=== PATIENT | male | born 1955 | race Caucasian/White ===

== ENCOUNTER → 2017-11-05 15:09 | Outpatient (CLI) | payer MEDICARE, SELFPAY ==
[2017-11-05 16:46] LABS: AST(SGOT) 27 U/L (15-37); Alanine Aminotransfer ALT/SGPT 32 U/L (16-61); Anion Gap 8 (5-15); BUN 20 mg/dL (7-18); BUN/Creat Ratio 18.2 RATIO (10-20); Calcium,Total 8.2 mg/dL (8.5-10.1); Chloride 109 mmol/L (98-107); EST Glomerular Filtration Rate 72 mL/min (>60); Est Glom Filt Rate - Afr Amer 87 mL/min (>60); Glucose 113 mg/dL (74-106); Potassium 3.6 mmol/L (3.5-5.1); Sodium Level 142 mmol/L (136-145)
[2017-11-05 16:54] LABS: Vitamin D,25 Hydroxy 68.8 ng/mL (29.95-100.01)
[2017-11-09 12:08] LABS: Testosterone, Free 4.87 ng/dL (5.00-21.00)
[2017-11-09 13:55] LABS: Testosterone, % Free 2.03 % (1.50-4.20); Testosterone, Total 240 ng/dL (264-916)
== END ==
PROVIDERS: Family Provider Family Medicine; PCP Family Medicine; Visit Provider Internal Medicine Endocrinology, Diabetes & Metabolism
DX: E55.9 Vitamin D deficiency, unspecified (principal); E29.1 Testicular hypofunction; I10 Essential (primary) hypertension; E78.2 Mixed hyperlipidemia; D35.01 Benign neoplasm of right adrenal gland
CPT/HCPCS: 36415; 80048; 82306; 84402; 84403; 84450; 84460

== ENCOUNTER → 2018-11-10 16:10 | Outpatient (CLI) | payer MEDICARE, SELFPAY ==
[2018-11-10 17:24] LABS: Anion Gap 8 (5-15); BUN 15 mg/dL (7-18); BUN/Creat Ratio 12.6 RATIO (10-20); Calcium,Total 8.4 mg/dL (8.5-10.1); Chloride 107 mmol/L (98-107); Creatinine, Serum 1.19 mg/dL (0.70-1.30); EST Glomerular Filtration Rate 66 mL/min (>60); Est Glom Filt Rate - Afr Amer 79 mL/min (>60); Glucose 106 mg/dL (74-106); Potassium 3.9 mmol/L (3.5-5.1); Sodium Level 142 mmol/L (136-145); Thyroid Stim Hormone (TSH) 1.68 uIU/mL (0.358-3.74)
[2018-11-11 11:55] LABS: Vitamin D,25 Hydroxy 61.2 ng/mL (29.95-100.01)
== END ==
PROVIDERS: Family Provider Family Medicine; PCP Family Medicine; Referring Provider Internal Medicine Endocrinology, Diabetes & Metabolism; Visit Provider Internal Medicine Endocrinology, Diabetes & Metabolism
DX: E29.1 Testicular hypofunction (principal); E04.9 Nontoxic goiter, unspecified; E55.9 Vitamin D deficiency, unspecified
CPT/HCPCS: 36415; 80048; 82306; 84403; 84443

== ENCOUNTER → 2019-03-01 12:22 | Outpatient (CLI) | payer MEDICARE, SELFPAY ==
--- NOTE | 2019-03-01 12:23 | NM_ITS ---
CLINICAL: 63-year-old male with reported history of postprandial abdominal pain and nausea. RADIONUCLIDE HEPATOBILIARY SCINTIGRAPHY COMPARISON: None available FINDINGS: Following the intravenous administration of 5.5 mCi of 99m Tc Mebrofenin, hepatobiliary images reveal: 1. Relatively prompt and homogeneous radiopharmaceutical concentration is noted by a normal sized liver. No parenchymal defects are identified. 2. Gallbladder activity is identified at 10 minutes post radiopharmaceutical administration. 3. Small intestinal tract is observed at 30 minutes following tracer injection. 4. Washout of the radiopharmaceutical by the hepatic parenchyma appears qualitatively normal. Cholecystokinin (0.02 ug/kg) was administered intravenously over a 30-minute period. The post CCK gallbladder ejection fraction calculated at 21 minutes following Cholecystokinin administration was noted to be 97.0 % (normal greater than 35%). During 30 minutes of post CCK imaging, there is no scintigraphic evidence of reflux of the radiotracer into the common hepatic duct or refilling of the gallbladder. NM/Hepatobilliary Imaging IMPRESSION: 1. NORMAL 99m Tc Mebrofenin hepatobiliary imaging examination with Cholecystokinin. A. A gallbladder ejection fraction calculated to be greater than 35% following the administration of Cholecystokinin makes the probability of functional hepatobiliary disease (gallbladder and/or sphincter of Oddi dyskinesia) and/or organic hepatobiliary disease (chronic acalculous cholecystitis and/or cystic duct syndrome) to be low. (Micky Sapp et al, Journal of Nuclear Medicine 32:1695, 1990). Electronically Signed: Allen Del Valle DO at 23:32 EDT Tel , Service support ,
== END ==
PROVIDERS: Family Provider Family Medicine; PCP Family Medicine; Referring Provider Family Medicine; Visit Provider Family Medicine
DX: R10.11 Right upper quadrant pain (principal)
CPT/HCPCS: 78226; A9537; J2805

== ENCOUNTER → 2019-04-07 10:15 | Outpatient (CLI) | payer MEDICARE, SELFPAY ==
[2019-03-14 14:03] VITALS: BMI 46.0
[2019-04-07 12:19] LABS: Anion Gap 7 (5-15); BUN 20 mg/dL (7-18); BUN/Creat Ratio 16.5 RATIO (10-20); Calcium,Total 9.1 mg/dL (8.5-10.1); Chloride 104 mmol/L (98-107); Creatinine, Serum 1.21 mg/dL (0.70-1.30); EST Glomerular Filtration Rate 64 mL/min (>60); Est Glom Filt Rate - Afr Amer 78 mL/min (>60); Glucose 99 mg/dL (74-106); Potassium 3.5 mmol/L (3.5-5.1); Sodium Level 139 mmol/L (136-145)
== END ==
PROVIDERS: Family Provider Family Medicine; PCP Family Medicine
DX: I10 Essential (primary) hypertension (principal)
CPT/HCPCS: 36415; 80048

== ENCOUNTER 2019-05-02 10:28 | Inpatient (IN) | payer MEDICARE, SELFPAY ==
--- NOTE | 2019-03-14 03:21 | HP_ITS ---
Intake Vital Signs 03/14/19 Height 5 ft 9 in 03/14/19 Weight: 312 lb 03/14/19 Body Mass Index (BMI) 46.0 03/14/19 Blood Pressure 166/85 H 03/14/19 Blood Pressure Location Rt brachial 03/14/19 Blood Pressure Position Sitting 03/14/19 Respiratory Rate 18 Intake Visit Reasons: C-Scope Screening Pos Cologuard Test [employer] Whe[employer] Axle Inspector Required: No Is patient in pain?: Yes (abdominal pain) Allergies No Known Allergies Allergy (Unverified 03/14/19 14:05) Medications acetaminophen 500 mg tablet 500 mg PO Q4H 03/14/19 [History Confirmed 03/14/19] amlodipine 10 mg tablet 10 mg PO DAILY 03/14/19 [History Confirmed 03/14/19] antiarthritic combination no.2 900 mg tablet mg PO tab 03/14/19 [History Confirmed 03/14/19] buspirone 10 mg tablet 10 mg PO BID 03/14/19 [History Confirmed 03/14/19] cholecalciferol (vitamin D3) 2,000 unit capsule 2,000 unit PO DAILY 03/14/19 [History Confirmed 03/14/19] clonazepam 2 mg tablet 2 mg PO BID 03/14/19 [History Confirmed 03/14/19] coenzyme Q10 200 mg/gram oral powder mg PO g 03/14/19 [History] duloxetine 60 mg capsule,delayed release 60 mg PO BID cap 03/14/19 [History Confirmed 03/14/19] ergocalciferol (vitamin D2) 50,000 unit capsule 50,000 unit PO QWEEK 03/14/19 [History Confirmed 03/14/19] ferrous sulfate 325 mg (65 mg iron) tablet 325 mg PO DAILY 03/14/19 [History Confirmed 03/14/19] latanoprost 0.005 % eye drops 1 drp OPHTHALMIC QPM 03/14/19 [History Confirmed 03/14/19] lisinopril 20 mg tablet 20 mg PO DAILY 03/14/19 [History Confirmed 03/14/19] lovastatin 40 mg tablet 40 mg PO DAILY 03/14/19 [History Confirmed 03/14/19] metoprolol tartrate 50 mg tablet 50 mg PO BID 03/14/19 [History Confirmed 03/14/19] naproxen sodium 220 mg tablet 220 mg PO BID 03/14/19 [History Confirmed 03/14/19] omega-3 fatty acids 1,000 mg capsule 1,000 mg PO DAILY 03/14/19 [History Confirmed 03/14/19] omeprazole 40 mg capsule,delayed release 40 mg PO DAILY #60 cap 03/14/19 [Rx Confirmed 03/14/19] timolol 0.5 % eye drops 1 drp OPHTHALMIC BID 03/14/19 [History Confirmed 03/14/19] PFSH Medical History Anxiety (Acute) Depression (Acute) Eczema (Acute) Glaucoma (Acute) High cholesterol (Acute) Psoriatic arthritis (Acute) Sleep apnea (Acute) HTN (hypertension) (Chronic) Surgical History (Updated 03/14/19 @ 14:02 by Sylvie Benitez) S/P hemorrhoidectomy (Acute) S/P tonsillectomy (Acute) s/p cardiac ablation (Acute) Family History (Updated 03/14/19 @ 14:03 by Sylvie Benitez) Brother CVA (cerebral vascular accident) Diabetes Social History (Updated 03/14/19 @ 15:21 by Domingo Russo MD) Smoking Status: Never smoker alcohol intake: current HPI HPI HPI: AMBERLY PEÑA, is a 63 M who presents to the office today for HPI HPI Surgical H&P: Yes HPI: AMBERLY PEÑA, is a 63 M who presents to the office today for Rectal bleeding. Patient notes that he has had blood in his stool for the last 6 months. He reports that his stools were dark and black in color and now they have blood in them. He said that he has had blood in the past around his stools when he was complaining of hemorrhoids. He also had a positive Cologuard test after the bleeding started. He is also complaining of right upper quadrant pain. The patient also reports that he has been on naproxen for about 6 months. ROS General General: Yes fatigue; no weight change Cardio Cardiovascular: Yes murmur and high blood pressure; no pacemaker, heart disease, atrial fibrillation, heart attack, heart stent, palpitations, shortness of breat with exertion or chest pain Psych Psychiatric: Yes anxiety; no depression Resp Respiratory: Yes shortness of breath, Yes sleep apnea, No cough, No COPD, No asthma, No emphysema, No wheezing Gastro Gastrointestinal: Yes abdominal pain, No nausea or vomiting, No diarrhea, No constipation, Yes blood in stool, No acid reflux, Yes hemorrhoids, No ulcers, No gallbladder problem, Yes black,tarry stools Stan Hematologic: No blood thinners Exam Const General: cooperative Orientation: alert, oriented x3 Resp Effort & Inspection: normal respiratory effort Auscultation: clear to auscultation bilaterally Cardio Rate: regular rate Rhythm: regular rhythm Heart Sounds: murmur GI Inspection: non-distended Palpation: soft, nontender Assessment & Plan Problems 1. Gastrointestinal hemorrhage, unspecified gastrointestinal hemorrhage type K92.2 Plan The patient reports that he has having blood in his stools. He reports that it is red when he flushes. He says that he has had hemorrhoidal bleeding before and there was usually blood on the outside of the stools but now it is within the stool. He also notes some black tarry stools as well. This is been going on for 6 months. I recommended that he start PPI and Carafate in case his peptic ulcer disease and we perform an EGD and colonoscopy. I explained endoscopy in detail to the patient. I explained the risks including but not limited to stroke or heart attack with anesthesia, perforation of the GI tract, bleeding, infection. I explained that any of these could necessitate further emergency surgery. The patient understands and all questions were answered sufficiently. The patient wishes to proceed with procedure. Domingo Russo MD Pager: [facility] [address] [place] [address], [address] [place] [address] Office: Orders Orders: Colonoscopy Today K92.2 EGD Today K92.2 Medications New: omeprazole 40 mg PO DAILY 60 caps 1RF ergocalciferol (vitamin D2) 50,000 units PO QWEEK ferrous sulfate (Feosol) 325 mg PO DAILY cholecalciferol (vitamin D3) 2,000 units PO DAILY omega-3 fatty acids 1,000 mg PO DAILY antiarthritic combination no.2 (glucosamine-chondroitin) mg PO coenzyme Q10 (H2Q CoQ10) mg PO acetaminophen (Tylenol Extra Strength) 500 mg PO Q4H naproxen sodium (Flanax (naproxen)) 220 mg PO BID Coding Level of Care Code Off vis,new,level 3 Diagnoses Gastrointestinal hemorrhage, unspecified gastrointestinal hemorrhage type K92.2 ??GI bleed type/associated pathology: unspecified gastrointestinal hemorrhage type 03/14/19 1521 <Electronically signed by Domingo lambert MD> Date _ Domingo Russo MD
[2019-03-14 14:03] VITALS: BMI 46.0
[2019-04-18 14:42] VITALS: BMI 46.0
[2019-05-02] VITALS (9 sets, daily range): BP systolic 102–145; BP diastolic 66–79; PULSE 57–68; RESP 15–18; TEMP 36.4–37.1; O2SAT 95–100; BMI 44.5; BMI 44.6
--- NOTE | 2019-05-02 | IMM_PTH ---
PATIENT: AMBERLY PEÑA LOC: MS3 U#:[id number] AGE/SX: 63/M ROOM: MS317 RE05/04/[address]: Dr. Domingo Russo MD : 1955 BED: 1 DIS: 05/16/2019 SPEC #: [id number] RECD: 05/08/19 12:56 STATUS: ZULEYKA REQ #: [id number] KALANI: 05/02/19 00:[address]: Domingo Russo DEPT: IMMUNOHISTOCHEMISTRY RECD BY: Nenita Calderon ENTERED: 05/08/19 12:57 SP TYPE: IMMUNO OTHR DR: Dr. John Villalta MD Tissues: Right colon Procedures: MSH2 (add) MLH-1 (add) MSH6 (add) Anti-PMS2 (add) RUBI-2 (add) HER2 SARBJIT (add) P53 (add) KI-67 (initial) PHYSICIAN & INSTITUTION [place] [id number] SPECIMEN INFORMATION: Tissue Source: Right colon Clinical Info: RUQ pain, rectal bleeding Specimen Number: [id number] #5 CPT code: 89972, 16838 x7 METHODOLOGY: Deparaffinized sections of prefer/formalin-fixed tissue or PAP/DQ stained slides are incubated with monoclonal/polyclonal antibodies/oligonucleotide probes. Localization is made via biotin free immunoperoxidase method. Appropriate controls are performed and reacted as expected. Results on target cell population are indicated in the following table: RESULTS: ANTIBODY / CLONE RESULT Block 5 Ki-67 (30-9) positive 25% P53 (DO-7) positive, rare cells RUBI-2 (SP21) positive MLH-1 (M1) positive MSH2 (25D12) positive MSH6 (44) positive PMS2 (VJV8666) positive Her-2neu (CB11) negative These tests were developed and their performance characteristics determined by [facility]. They may not have been cleared or approved by the U.S. Food and Drug Administration. The FDA has determined that such clearance or approval is not necessary. The above immunohistochemical/dualISH markers are ordered and reviewed by the Pathologist. INTERPRETATION: Right colon, segmental colectomy: Invasive adenocarcinoma. Result of Microsatellite Instability Study: Negative (no loss of mismatch protein; no microsatellite instability detected). AM:jose rafael 05/09/19
--- NOTE | 2019-05-02 | COLBX_PTH ---
PATIENT: AMBERLY PEÑA LOC: MS3 U#:[id number] AGE/SX: 63/M ROOM: MS317 RE05/04/[address]: Dr. Domingo Russo MD : 1955 BED: 1 DIS: 05/16/2019 SPEC #: [id number] RECD: 05/02/19 10:27 STATUS: ZULEYKA JACQUELYN #: [id number] KALANI: 05/02/19 00:[address]: Domingo Russo DEPT: SURGICAL PATHOLOGY RECD BY: Clement Harry ENTERED: 05/02/19 10:29 SP TYPE: COLON BX OTHR DR: Dr. John Villalta MD Tissues: A - Transverse colon B - Transverse colon C - Sigmoid colon biopsy Procedures: Frozen Section ([facility]) Surgery Specimen Level IV HEADER OPERATION: Colonoscopy, EGD ([facility]) PRE-OP DIAGNOSIS: RUQ pain, rectal bleeding, blood in stool TISSUE SUBMITTED: A. Transverse colon, frozen section, B. Biopsy transverse colon, C Sigmoid colon polyp FROZEN SECTION DIAGNOSIS A. Transverse colon mass, biopsy: Dysplastic colonic epithelium suspicious for carcinoma AM:cc 05/02/19 MICROSCOPIC DIAGNOSIS A. Transverse colon mass, biopsy: Dysplastic colonic mucosa suspicious for carcinoma. B. Transverse colon, biopsy: Fragments of invasive well-differentiated adenocarcinoma with ulceration. C. Sigmoid colon polyp, biopsy: Tubular adenoma. AM:sp 05/03/19 COMMENT B. This case was discussed with Dr. Russo on May 03, 2019. Case has been reviewed in consultation with Dr. Devlin who concurs with the above diagnosis. IDC:SJ MICROSCOPIC DESCRIPTION Slides are reviewed. GROSS DESCRIPTION A. Received fresh for frozen section consultation labeled with the patient's name is a specimen designated transverse colon biopsy. The specimen consists of multiple irregular fragments of light mcgraw soft tissue measuring in aggregate 0.5 x 0.2 x 0.1 cm. The specimen is submitted in its entirety in one block for frozen section consultation. B. Received is one container labeled with the patient name and designated transverse colon biopsy. The specimen consists of multiple irregular fragments of light mcgraw soft tissue that in aggregate measure 1 x 0.7 x 0.1 cm. The specimen is totally submitted in one cassette. C. Received is one container labeled with the patient name and designated sigmoid polyp. The specimen consists of one irregular fragment of light mcgraw soft tissue that measures 1.7 x 0.5 x 0.2 cm. The specimen is totally submitted in one cassette. AM:cj 05/02/19 TC: 0 CPT: 56615 x3, 82822
[2019-05-02] MEDS: Lactated Ringers 1,000 ML 100 ML IV (08:21)
--- NOTE | 2019-05-02 08:54 | PCM.HP.STD ---
Problem List (1) Rectal bleeding Status: Acute (2) RUQ abdominal pain Status: Acute History of Present Illness Date of Admission: 05/02/19 The patient is a 63 year old M was having right upper quadrant pain after taking naproxen. He was also having blood in his stool. He says this been going on for 6 months. Past Medical History Medical History: Medical History (Last Reviewed 04/18/19 @ 13:46 by Sylvie Benitez) Anxiety F41.9 Depression F32.9 Eczema L30.9 Glaucoma H40.9 High cholesterol E78.00 Psoriatic arthritis L40.50 Sleep apnea G47.30 HTN (hypertension) I10 Allergies No Known Allergies Allergy (Verified 05/02/19 08:09) Home Medications: Ambulatory Orders Medication Instructions Recorded acetaminophen 500 mg tablet 500 mg PO Q4H PRN 03/14/19 amlodipine 10 mg tablet 10 mg PO DAILY 03/14/19 buspirone 10 mg tablet 10 mg PO TID 03/14/19 cholecalciferol (vitamin D3) 50 2,000 unit PO DAILY 03/14/19 mcg (2,000 unit) capsule clonazepam 2 mg tablet 2 mg PO QHS 03/14/19 duloxetine 60 mg capsule,delayed 60 mg PO BID cap 03/14/19 release ergocalciferol (vitamin D2) 50,000 50,000 unit PO QWEEK 03/14/19 unit capsule ferrous sulfate 325 mg (65 mg 325 mg PO DAILY 03/14/19 iron) tablet latanoprost 0.005 % eye drops 1 drp OPHTHALMIC QPM 03/14/19 lisinopril 20 mg tablet 20 mg PO DAILY 03/14/19 lovastatin 40 mg tablet 40 mg PO DAILY 03/14/19 metoprolol tartrate 50 mg tablet 50 mg PO BID 03/14/19 omega-3 fatty acids 1,000 mg 1,000 mg PO DAILY 03/14/19 capsule omeprazole 40 mg capsule,delayed 40 mg PO DAILY #60 cap 03/14/19 release timolol 0.5 % eye drops 1 drp OPHTHALMIC DAILY 03/14/19 Glucos Sul 2Kcl/MSM/Chond/C/Mn 1 ea PO BID 03/29/19 [Glucosamine Chondroitin Cap] Sucralfate [Carafate] 1 gm PO 4X/DAY 03/29/19 Ubidecarenone [Co Q-10] 200 mg PO DAILY 03/29/19 aspirin 81 mg tablet,delayed 81 mg PO DAILY 04/18/19 release ergocalciferol (vitamin D2) 50,000 50,000 unit PO QWEEK 04/18/19 unit capsule hydrochlorothiazide 25 mg tablet 25 mg PO DAILY 04/18/19 metoprolol succinate ER 50 mg 50 mg PO BID 04/18/19 tablet,extended release 24 hr Surgical History: Surgical History (Last Reviewed 04/18/19 @ 13:46 by Sylvie Benitez) S/P hemorrhoidectomy Z98.890, Z87.19 S/P tonsillectomy Z90.89 s/p cardiac ablation Smoking Status: Never smoker Tobacco Use: Non-smoker Review of Systems Constitutional: Denies: Anorexia, Chills HEENT: Denies: Difficulty Hearing Respiratory: Denies: Cough Gastrointestinal: Reports: Abdominal Pain. Denies: Hematochezia, Nausea, Vomiting Musculoskeletal: Denies: Joint Tenderness Skin: Denies: Jaundice Neurological: Denies: Balance problems VTE Information - Inpt Only VTE Present on Admission: No Patient Problems: Active and Suspected Problems (Last Reviewed 04/18/19 @ 13:46 by Sylvie Benitez) Rectal bleeding (Acute) RUQ abdominal pain (Acute) - Physical Exam Vitals/I&O's: Vital Signs Temp Pulse Resp BP Pulse Ox 97.7 F L 66 15 131/66 H 95 05/02/19 08:11 05/02/19 08:11 05/02/19 08:11 05/02/19 08:11 05/02/19 08:11 Oxygen Delivery Method Room Air Weight: 301 lb 9.6 oz Body Mass Index (BMI) 44.5 General: Alert, Oriented x3 Lungs: Normal air movement Cardiovascular: Regular rate, Regular Rhythm Abdomen: Soft, Non Tender, Non-Distended Current Medications Lactated Ringer's () 1,000 mls @ 100 mls/hr IV .Q10H JULIO Last Admin: 05/02/19 08:21 Dose: 100 mls/hr Documented by: Assessment/Plan All Active Problems (Last Reviewed 04/18/19 @ 13:46 by Sylvie Benitez) Rectal bleeding (Acute) RUQ abdominal pain (Acute) 63-year-old male with abdominal pain and blood in his stool The patient reports that he has having blood in his stools. He reports that it is red when he flushes. He says that he has had hemorrhoidal bleeding before and there was usually blood on the outside of the stools but now it is within the stool. He also notes some black tarry stools as well. This is been going on for 6 months. I recommended that he start PPI and Carafate in case his peptic ulcer disease and we perform an EGD and colonoscopy. I explained endoscopy in detail to the patient. I explained the risks including but not limited to stroke or heart attack with anesthesia, perforation of the GI tract, bleeding, infection. I explained that any of these could necessitate further emergency surgery. The patient understands and all questions were answered sufficiently. The patient wishes to proceed with procedure. Domingo Russo MD Pager: [facility] [address] [place] [address], [address] [place] [address] Office:
--- NOTE | 2019-05-02 09:00 | COL_PTH ---
PATIENT: AMBERLY PEÑA LOC: MS3 U#:[id number] AGE/SX: 63/M ROOM: MS317 RE05/04/[address]: Dr. Domingo Russo MD : 1955 BED: 1 DIS: 05/16/2019 SPEC #: [id number] RECD: 05/04/19 08:07 STATUS: ZULEYKA JACQUELYN #: [id number] KALANI: 05/02/19 09:[address]: Domingo Russo DEPT: SURGICAL PATHOLOGY RECD BY: Elias Talbot ENTERED: 05/04/19 10:49 SP TYPE: COLON OTHR DR: Dr. John Villalta MD Tissues: Colon, NOS Procedures: Surgery Specimen Level HEADER OPERATION: Laparoscopic converted to open hemicolectomy PRE-OP DIAGNOSIS: RUQ pain, rectal bleeding TISSUE SUBMITTED: Right colon MICROSCOPIC DIAGNOSIS Right colon, segmental colectomy: Invasive adenocarcinoma. See cancer checklist below. AM:jose rafael 05/08/19 COMMENT COLON CANCER SUMMARY: Procedure: segmental colectomy Tumor site: right colon Tumor size: 8 x 5 x 1 cm Macroscopic tumor perforation: not identified Histologic type: adenocarcinoma Histologic grade: G2 (moderately differentiated) Tumor extension: Tumor invades muscularis propria and extends into subserosal fat. Margins: All margins are uninvolved by invasive carcinoma, high-grade dysplasia/CIS and adenoma. Margins examined: proximal, distal and serosal Treatment effect: Unknown Lymphvascular invasion: not identified Perineural invasion: not identified Tumor deposits: not identified Regional lymph nodes: 14 of 14 lymph nodes negative for metastatic carcinoma. Ancillary studies: Microsatellite instability: Negative by Immunohistochemistry Additional pathologic findings: None identified PATHOLOGIC STAGE: T3 N0 Mx The above summary is in compliance with [employer] (CAP) Cancer Protocols Checklist and [place] [employer] Committee on Cancer (AJCC), Staging Manual, 8th Ed. Immunohistochemistry ([id number]) supports the above diagnosis and reveals no loss of MSI markers. Case is discussed with Dr. Russo 05/09/[address] Merchant Case has been reviewed in consultation with Dr. eDvlin who concurs with the above diagnosis. IDC:SJ MICROSCOPIC DESCRIPTION Slides are reviewed. GROSS DESCRIPTION Received in fixative is one container labeled with the patient's name and designated right colon. The specimen consists of a right hemicolectomy specimen consisting of cecum with ascending colon and transverse colon with attached omentum and pericolonic adipose tissue and segment of small intestine. The appendix is not identified in the submitted specimen. The cecum with ascending colon and transverse colon measures 33 cm in length. The segment of small intestine measures 12.5 cm in length. Both resection margins are stapled. The colon appears to be dilated and measures 6 to 7 cm in diameter. The lumen is filled with fecal material. 8.5 cm away from the distal resection margin there is a circumferential, almost obstructing ulcerated tumor mass measuring 8 x 5 x 1 cm. The serosa overlying the mass is inked black. No other additional mass lesions are identified. A metallic clip is noted adjacent to the mass. The serosa overlying the mass appears to be puckered. The mass appears to involve full thickness of the bowel wall. The attached omentum measures 23 x 10 x 3 cm. The pericolonic adipose tissue is fixed in lymph node revealing solution. More dictation will follow after overnight fixation. / SJ:jose rafael 05/04/19 Sections of the omentum do not reveal any mass lesion. Sections of the pericolonic adipose tissue reveal multiple lymph nodes. The largest lymph node measures 2 cm in greatest dimension. Service Consultant sections are submitted as follows: 1 - resection margins, 2-6 - tumor, 7 - ileocecal valve, small and large intestine, 8 - omentum, 9 - one bisected lymph node, 10 - one bisected lymph node, 11 - one bisected lymph node, 12 - one bisected lymph node, 13 - indurated area in the peripheral adipose tissue, 1417??each cassette containing one bisected lymph node, 18 - multiple lymph nodes, 19 - one serially sectioned lymph node, largest lymph node, 20 - one lymph node. / SJ:jose rafael 05/05/19 TC:0 CPT: 02925
--- NOTE | 2019-05-02 09:42 | OP.EGD_ITS ---
Patient Name: Garfield Lainez Procedure Date: 05/02/2019 9:01 AM Date of : 1955 Age: 63 Procedure: Upper GI endoscopy Indications: Abdominal pain in the right upper quadrant Providers: Domingo Russo MD Referring MD: John Villalta Medicines: Monitored Anesthesia Care Patient Profile: This is a 63 year old male. Refer to note in patient chart for documentation of history and physical. Complications: No immediate complications. Procedure: Pre-Anesthesia Assessment: - Prior to the procedure, a History and Physical was performed, and patient medications and allergies were reviewed. The patient's tolerance of previous anesthesia was also reviewed. The risks and benefits of the procedure and the sedation options and risks were discussed with the patient. All questions were answered, and informed consent was obtained. Prior Anticoagulants: The patient has taken no previous anticoagulant or antiplatelet agents. After reviewing the risks and benefits, the patient was deemed in satisfactory condition to undergo the procedure. After obtaining informed consent, the endoscope was passed under direct vision. Throughout the procedure, the patient's blood pressure, pulse, and oxygen saturations were monitored continuously. The gastroscope was introduced through the mouth, and advanced to the second part of duodenum. The upper GI endoscopy was accomplished without difficulty. The patient tolerated the procedure well. Scope In: 9:08:22 AM Scope Out: 9:10:48 AM Total Procedure Duration Time 0 hours 2 minutes 26 seconds Findings: The esophagus was normal. The stomach was normal. The examined duodenum was normal. Impression: - Normal esophagus. - Normal stomach. - Normal examined duodenum. - No specimens collected. Recommendation: - Discharge patient to home. - Resume previous diet. - Continue present medications. Procedure Code(s): --- Professional --- 28069, Esophagogastroduodenoscopy, flexible, transoral; diagnostic, including collection of specimen(s) by brushing or washing, when performed (separate procedure) Diagnosis Code(s): --- Professional --- R10.11, Right upper quadrant pain CPT copyright 2017 [employer]. All rights reserved. The codes documented in this report are preliminary and upon er medical technician review may be revised to meet current compliance requirements. Domingo Russo MD 05/02/2019 9:41:59 AM This report has been signed electronically. Number of Addenda: 0 Note Initiated On: 05/02/2019 9:01 AM
--- NOTE | 2019-05-02 09:45 | OP.COLON_ITS ---
Patient Name: Garfield Lainez Procedure Date: 05/02/2019 9:12 AM Date of : 1955 Age: 63 Procedure: Colonoscopy Indications: Rectal bleeding Providers: Domingo Russo MD Referring MD: John Villalta Medicines: Monitored Anesthesia Care Patient Profile: This is a 63 year old male. Refer to note in patient chart for documentation of history and physical. Last Colonoscopy: none. The patient's first colonoscopy is today. Complications: No immediate complications. Estimated blood loss: Minimal. Procedure: Pre-Anesthesia Assessment: - Prior to the procedure, a History and Physical was performed, and patient medications and allergies were reviewed. The patient's tolerance of previous anesthesia was also reviewed. The risks and benefits of the procedure and the sedation options and risks were discussed with the patient. All questions were answered, and informed consent was obtained. Prior Anticoagulants: The patient has taken no previous anticoagulant or antiplatelet agents. After reviewing the risks and benefits, the patient was deemed in satisfactory condition to undergo the procedure. After I obtained informed consent, the scope was passed under direct vision. Throughout the procedure, the patient's blood pressure, pulse, and oxygen saturations were monitored continuously. The Colonoscope was introduced through the anus with the intention of advancing to the cecum. The scope was advanced to the transverse colon before the procedure was aborted. Medications were not given. The colonoscopy was performed without difficulty. The patient tolerated the procedure well. The quality of the bowel preparation was good. Scope In: 9:13:34 AM Scope Out: 9:39:37 AM Total Procedure Duration Time 0 hours 26 minutes 3 seconds Findings: A partially obstructing large mass was found in the transverse colon. The mass was circumferential. Oozing was present. This was biopsied with a cold forceps for histology. A polyp was found in the sigmoid colon. The polyp was pedunculated. The polyp was removed with a hot snare. Resection and retrieval were complete. The exam was otherwise without abnormality. Impression: - Likely malignant partially obstructing tumor in the transverse colon. Biopsied. - One polyp in the sigmoid colon, removed with a hot snare. Resected and retrieved. - The examination was otherwise normal. Recommendation: - Discharge patient to home. - Resume previous diet. - Continue present medications. - Await pathology results. - Repeat colonoscopy for surveillance based on pathology results. Procedure Code(s): --- Professional --- 04838, 52, Colonoscopy, flexible; with removal of tumor(s), polyp(s), or other lesion(s) by snare technique 45680, 59,52, Colonoscopy, flexible; with biopsy, single or multiple Diagnosis Code(s): --- Professional --- D49.0, Neoplasm of unspecified behavior of digestive system K56.690, Other partial intestinal obstruction D12.5, Benign neoplasm of sigmoid colon K62.5, Hemorrhage of anus and rectum CPT copyright 2017 [employer]. All rights reserved. The codes documented in this report are preliminary and upon yard switch operator review may be revised to meet current compliance requirements. Domingo Russo MD 05/02/2019 9:44:56 AM This report has been signed electronically. Number of Addenda: 0 Note Initiated On: 05/02/2019 9:12 AM
--- NOTE | 2019-05-02 10:26 | CT_ITS ---
STUDY: CT ABDOMEN AND PELVIS WITH CONTRAST REASON FOR EXAM: Male, 63 years old. Mass in the colon. RADIATION DOSAGE (If Supplied By Facility): CTDIvol = ( 17.07 ) mGy, DLP = ( 1324.88 ) mGycm TECHNIQUE: Transaxial images were obtained from the dome of the diaphragm to the symphysis pubis with oral contrast. Oral and amp; IV Gastrografin and amp; 100mL Isovue-370 was administered. Sagittal and coronal images were reconstructed. Individualized dose optimization techniques were used for this CT. COMPARISON: Comparison is made with prior study dated June 25, 2011. FINDINGS: Minimal degree of increased markings in the posterior medial segment of the right lower lobe. This may represent scarring. The visualized portions of the heart are within normal limits. There is decreased attenuation of the liver consistent with steatosis. Normal gallbladder and extrahepatic biliary system. Normal spleen. Normal pancreas. There is a 3.9 cm x 2.8 cm cyst in the lateral aspect of the right kidney. There is also evidence of a 2.1 cm cyst in the lower pole of the left kidney. There is a 5.3 cm x 5.2 cm cyst in the upper pole of the left kidney. 2.9 cm cyst in the lower pole of the left kidney as well. There is a small hiatal hernia. Normal small intestine. There is evidence of a soft tissue mass with thickening of the ascending colon adjacent to the hepatic flexure. A tissue clip marker is seen at that site. The appendix is visualized and appears normal. There is scattered atherosclerotic calcification of the abdominal aorta, without a demonstrated aneurysm. Normal inferior vena cava. There is borderline retroperitoneal lymphadenopathy with enlarged nodes no greater than 10mm in the short axis diameter. Normal urinary bladder. There is a small umbilical hernia containing fat. There are degenerative changes of the visualized lumbar spine. CT/Abdomen/Pelvis WITH Contrast IMPRESSION: Soft tissue mass with the wall thickening along the descending colon adjacent to the hepatic flexure. Bilateral renal cysts. Electronically Signed: Isaac Finnegan, at 14:37 EST , Service support ,
--- NOTE | 2019-05-02 10:49 | SUR.PHASEII ---
1030 Report called to ANDREEA Hedrick on MS2. PT to have lab work, then transferred via wheelchair by volunteer.
[2019-05-02 11:15] LABS: Absolute Lymphocyte Count 1.35 X10^3/uL (0.83-4.51); Absolute Neutrophil Count 3.9 X10^3/uL (2.0-7.7); Basophil# 0.04 X10^3/uL; Basophil% 0.7 % (0-1); Eosinophil# 0.24 X10^3/uL; Hemoglobin 10.3 g/dL (13.0-16.5); Lymphocyte # 1.35 X10^3/ul (4.0); Lymphocyte % 22.5 % (19-41); Mean Corp Hgb Conc 30.3 g/dL (32-36); Mean Corpuscular Hgb 25.1 pg (27.0-32.0); Mean Corpuscular Volume 82.9 fL (80-94); Mean Platelet Vol. 9.9 fl (6.2-12.0); Monocyte# 0.46 X10^3/uL; Monocyte% 7.7 % (0-10); NRBC Flagged by Analyzer 0 % (0-5); Neutrophil % 64.9 % (47-70); Platelet Count 312 K/mm3 (150-450); RBC Distribution Width CV 15.8 % (11.6-14.6); RBC Distribution Width SD 47.7 fl (35.1-43.9)
[2019-05-02 11:33] LABS: ALB/GLOB Ratio 1.1 RATIO (0.9-2.4); AST(SGOT) 29 U/L (15-37); Alanine Aminotransfer ALT/SGPT 29 U/L (16-61); Albumin, Serum 3.5 g/dL (3.2-5.0); Alkaline Phosphatase 72 U/L (45-117); Anion Gap 5 (5-15); BUN 11 mg/dL (7-18); BUN/Creat Ratio 7.5 RATIO (10-20); Calcium,Total 8.5 mg/dL (8.5-10.1); Chloride 107 mmol/L (98-107); Creatinine, Serum 1.47 mg/dL (0.70-1.30); EST Glomerular Filtration Rate 51 mL/min (>60); Est Glom Filt Rate - Afr Amer 62 mL/min (>60); Estimated Creatinine Clearance 51.44 ml/min; Globulin 3.3 g/dL (2.2-4.2); Glucose 101 mg/dL (74-106); Potassium 3.1 mmol/L (3.5-5.1); Protein, Total 6.8 g/dL (6.4-8.2); Sodium Level 142 mmol/L (136-145)
[2019-05-02] MEDS: 0.9% Normal Saline 1,000 ML 75 ML IV (11:36)
[2019-05-02] MEDS: Potassium Chloride 10mEq/100mL 10 MEQ/100 ML IV.SOLN. 100 MEQ IV BOLUS ×3 (14:11→17:01)
[2019-05-02] MEDS: busPIRone 5 MG Tablet 10 MG PO ×2 (14:12→21:11)
--- NOTE | 2019-05-02 14:26 | PCM.PN.BLA ---
Progress Note I performed a colonoscopy on the patient today. The patient had a hepatic flexure mass which was circumferential and large and friable. It was nearly obstructing with no possibility of passing through the mass. I was unable to complete the colonoscopy due to the circumferential mass. Biopsies were taken and sent for pathology. CT scan was performed which shows hepatic flexure mass at the area of the clip. I discussed right hemicolectomy with the patient and ordered a CEA and type and screen. I discussed right hemicolectomy in detail the patient. I discussed the risks including but not limited to bleeding, infection, surrounding organ injury such as the ureters, liver, duodenum. The patient understands the risks and is willing to proceed with surgery. I believe it is prudent to perform surgery before the pathology has returned as it is highly concerning for malignancy and a nearly obstructing mass. I discussed that likely represents cancer with the patient. Patient understands. Domingo Russo MD Pager: [facility] [address] [place] [address], [address] [place] [address] Office: [facility] Vital Signs/Narrative: Vital Signs Temp Pulse Resp BP Pulse Ox 05/02/19 11:29 97.5 F L 68 18 140/79 H 96
[2019-05-02] MEDS: metroNIDAZOLE 500 MG Tablet 1000 MG PO ×3 (15:46→22:26)
[2019-05-02] MEDS: Latanoprost 0.005% 1 Bottle 1 DRP OPHTHALMIC (21:10)
[2019-05-02] MEDS: Metoprolol Tartrate 50 MG Tablet PO (21:12)
[2019-05-02] MEDS: clonazePAM 1 MG Tablet 2 MG PO (21:12)
[2019-05-02] MEDS: DULoxetine Hcl 60 MG Capsule PO (21:12)
[2019-05-03] VITALS (16 sets, daily range): BP systolic 99–139; BP diastolic 57–73; PULSE 57–76; RESP 12–18; TEMP 36.3–37.3; O2SAT 85–99; BMI 44.6
[2019-05-03] MEDS: 0.9% Normal Saline 1,000 ML 75 ML IV (01:27)
--- NOTE | 2019-05-03 05:00 | EKG12_ITS ---
Test Reason : PRE-OP Blood Pressure : / mmHG Vent. Rate : 075 BPM Atrial Rate : 075 BPM P-R Int : 212 ms QRS Dur : 090 ms QT Int : 414 ms P-R-T Axes : 049 000 -14 degrees QTc Int : 462 ms SInus vs Ectopic Atrial Rhythm Inferior infarct , age undetermined , cannot be excluded Abnormal ECG Confirmed by YOKASTA HOYOS, KLAUS ([id number]), electronic news gathering editor ALTON ORTEZ ([id number]) on 05/10/2019 1:11:27 PM Referred By: John Villalta Confirmed By:KLAUS TEMPLETON MD
[2019-05-03] MEDS: busPIRone 5 MG Tablet 10 MG PO ×2 (06:08→21:23)
[2019-05-03 06:22] LABS: Absolute Lymphocyte Count 1.13 X10^3/uL (0.83-4.51); Absolute Neutrophil Count 4.5 X10^3/uL (2.0-7.7); Basophil# 0.06 X10^3/uL; Basophil% 0.9 % (0-1); Eosinophil# 0.28 X10^3/uL; Eosinophils% 4.3 % (0-5); Hematocrit 34.5 % (40-54); Hemoglobin 10.4 g/dL (13.0-16.5); Lymphocyte # 1.13 X10^3/ul (4.0); Lymphocyte % 17.3 % (19-41); Mean Corp Hgb Conc 30.1 g/dL (32-36); Mean Corpuscular Hgb 24.8 pg (27.0-32.0); Mean Corpuscular Volume 82.3 fL (80-94); Monocyte# 0.55 X10^3/uL; Monocyte% 8.4 % (0-10); NRBC Flagged by Analyzer 0 % (0-5); Neutrophil % 68.6 % (47-70); Platelet Count 302 K/mm3 (150-450); RBC Distribution Width CV 15.9 % (11.6-14.6); RBC Distribution Width SD 47.9 fl (35.1-43.9); Red Blood Count 4.19 M/mm3 (4.6-6.2); White Blood Count 6.6 K/mm3 (4.4-11.0)
[2019-05-03 06:28] LABS: Anion Gap 4 (5-15); BUN 8 mg/dL (7-18); BUN/Creat Ratio 6.1 RATIO (10-20); Calcium,Total 8.3 mg/dL (8.5-10.1); Chloride 110 mmol/L (98-107); Creatinine, Serum 1.31 mg/dL (0.70-1.30); EST Glomerular Filtration Rate 59 mL/min (>60); Est Glom Filt Rate - Afr Amer 71 mL/min (>60); Estimated Creatinine Clearance 57.72 ml/min; Glucose 117 mg/dL (74-106); Potassium 3.1 mmol/L (3.5-5.1); Sodium Level 143 mmol/L (136-145)
[2019-05-03] MEDS: Potassium Chloride 10mEq/100mL 10 MEQ/100 ML IV.SOLN. 100 MEQ IV BOLUS ×4 (08:04→11:11)
[2019-05-03 09:54] LABS: Carcinoembryonic Antigen 0.5 ng/mL (0.0-4.7)
--- NOTE | 2019-05-03 11:11 | CASEMGMT ---
RN SHA NOTE: To room to meet with pt. Introduced self and role of RN SHA. Reviewed LEMONS form with pt and and questions answered. Denies having further questions. LEMONS form signed by pt, copy made and placed on chart, and pt given original. Kenton ELLIOTTN RN CM
[2019-05-03] MEDS: Timolol 0.25% 5ML OPTH.BTL 1 DRP OPHTHALMIC (11:55)
--- NOTE | 2019-05-03 12:04 | NURSING ---
REPORT CALLED TO [facility]- PT TO SURGERY AND GOING DOWN WITH THEM
[2019-05-03] MEDS: Lactated Ringers 1,000 ML 100 ML IV (15:30)
[2019-05-03] MEDS: Bupivacaine 0.25% 30 ML Vial (17:00)
--- NOTE | 2019-05-03 17:29 | PCM.OPRPT ---
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 A Mathew catheter was placed. The abdomen was prepped and draped in usual sterile fashion. An incision was made superior to the umbilicus and deepened to the fascia. A 5 mm port was placed through the fascia under Visiport technique and into the abdomen and the abdomen was insufflated to 15 mmHg. A 5 mm port was placed in the superior midline and inferior midline as well. Next the right colon was medialized from the white line of Toldt laterally. He did have scar tissue in the area of his prior appendectomy. I was unable to divide the adhesions to the sigmoid colon and pelvis from the terminal ileum. Working superiorly the colon was medialized. Next the transverse colon was identified and retracted inferiorly and dissected free from the lesser sac. This dissection was carried around the hepatic flexure anteriorly. At this point I was unable to visualize the posterior transverse colon or the terminal ileum so the patient was converted open. The ports were removed and an incision was made from the superior epigastric area down to just below the umbilicus. This was deepened to the fascia and the fascia was incised with electrocautery. An extra-large wound protector was placed. The colon was further medialized from the lateral attachments. The terminal ileum was identified and followed inferiorly. There were dense adhesions in the pelvis. These were sharply incised with scissors. The terminal ileum was delivered superiorly once it was freed from its attachments. Next the superior ascending colon was medialized from the duodenum. The duodenum was from its filmy attachments. The gallbladder was also adherent to this area loosely. This was sharply divided and the gallbladder was freed. There is no spillage of bile. The lesser sac was entered in the mid transverse colon and dissection was carried laterally until the liver was identified and the hepatic flexure was taken down. The tumor was very large and was medialized and inferiorly retracted. The right colic vessels were identified. These were dissected free. Clamps were placed and these were suture ligated with 0 silk sutures. Next the right middle colic was identified. It was taken in the same fashion using 0 silk suture ligatures. Hemostasis was good. Using the Enseal the mesentery to the right colon was taken down until the terminal ileum was reached. A ROSELIA stapler was used to divide the terminal ileum and another stapler was used to divide the transverse colon at least 10 cm distal to the mass. There was good blood supply at the distal transverse colon from the left middle colic vessel. Next a small enterotomy was made in the tenia of the transverse colon as well as the distal terminal ileum. ROSELIA stapler was used to bring the terminal ileum to the transverse colon and a [id number] functional end-to-end fashion. The stapler was removed and the staple line was inspected and there was good hemostasis. The enteral to me was approximated with [place] and a TX 60 stapler was used to close the enterotomy. This was inspected and several 3-0 silk sutures were used to stop small amounts of bleeding. A 3-0 silk suture was used in the crotch of the staple line between the transverse colon and distal terminal ileum. The abdomen was irrigated and suctioned dry. There was no bilious drainage from the gallbladder or the small bowel where the adhesions were taken down. Everything appeared in order in the abdomen and the anastomosis and the omentum were laid back into the abdomen and the omentum was placed over the bowel. The wound retractor was removed. Next the entire staff remove the gown and gloves and changed to fresh gown and gloves. New towels were placed. The abdomen was irrigated and suctioned dry once more. The fascia was closed from superior and inferior borders using 2 looped #1 PDS sutures meeting in the middle. Next the subcutaneous tissue was irrigated and suctioned dry. There is good hemostasis of the subcutaneous material. The skin was anesthetized with local anesthetic and stapled closed. The patient was awoken and taken to PACU in stable condition with Mathew in place. Patient tolerated procedure well. - Admit VTE Documentation VTE Mechan Device Prophylaxis: SCD's
[2019-05-03] MEDS: 0.9% Normal Saline 1,000 ML 125 ML IV ×2 (18:22→23:21)
[2019-05-03] MEDS: Ketorolac 15 MG/ML Vial IV (19:56)
[2019-05-03] MEDS: Morphine 4 MG/ML Syringe IV ×2 (19:56→23:22)
[2019-05-03] MEDS: 0.9% Saline Lock 10 ML Syringe IV ×2 (19:56→23:21)
--- NOTE | 2019-05-03 20:25 | CPS ---
bled in 3 lpm O2 inline with pt's home CPAP unit
[2019-05-03] MEDS: Acetaminophen 500 MG Tablet PO (21:22)
[2019-05-03] MEDS: Latanoprost 0.005% 1 Bottle 1 DRP OPHTHALMIC (21:22)
[2019-05-03] MEDS: clonazePAM 1 MG Tablet 2 MG PO (21:22)
[2019-05-03] MEDS: Metoprolol Tartrate 50 MG Tablet PO (21:23)
[2019-05-03] MEDS: DULoxetine Hcl 60 MG Capsule PO (21:23)
[2019-05-03] MEDS: Pantoprazole Sodium 40 MG Tablet PO (21:24)
[2019-05-03] MEDS: Ondansetron 4 MG/2 ML Vial IV (23:21)
[2019-05-04] VITALS (8 sets, daily range): BP systolic 117–134; BP diastolic 58–70; PULSE 58–83; RESP 16–20; TEMP 36.4–37; O2SAT 95–98
[2019-05-04] MEDS: 0.9% Saline Lock 10 ML Syringe IV (03:11)
[2019-05-04] MEDS: Morphine 4 MG/ML Syringe IV ×4 (03:11→16:49)
[2019-05-04] MEDS: Acetaminophen 500 MG Tablet PO (04:58)
[2019-05-04] MEDS: busPIRone 5 MG Tablet 10 MG PO ×3 (04:59→21:19)
[2019-05-04] MEDS: Ketorolac 15 MG/ML Vial IV ×3 (04:59→21:19)
[2019-05-04 06:37] LABS: Absolute Lymphocyte Count 0.66 X10^3/uL (0.83-4.51); Absolute Neutrophil Count 10.8 X10^3/uL (2.0-7.7); Basophil# 0.02 X10^3/uL; Basophil% 0.2 % (0-1); Hemoglobin 10.2 g/dL (13.0-16.5); Lymphocyte # 0.66 X10^3/ul (4.0); Lymphocyte % 5.5 % (19-41); Mean Corpuscular Hgb 25.2 pg (27.0-32.0); Mean Platelet Vol. 9.7 fl (6.2-12.0); Monocyte# 0.53 X10^3/uL; Monocyte% 4.4 % (0-10); NRBC Flagged by Analyzer 0 % (0-5); Neutrophil # 10.81 X10^3/uL (2.7-7.7); Neutrophil % 89.5 % (47-70); Platelet Count 286 K/mm3 (150-450); RBC Distribution Width CV 15.7 % (11.6-14.6); Red Blood Count 4.05 M/mm3 (4.6-6.2); White Blood Count 12.1 K/mm3 (4.4-11.0)
[2019-05-04] MEDS: 0.9% Normal Saline 1,000 ML 125 ML IV ×3 (06:48→23:37)
[2019-05-04 07:01] LABS: Anion Gap 5 (5-15); BUN 11 mg/dL (7-18); Calcium,Total 7.7 mg/dL (8.5-10.1); Chloride 112 mmol/L (98-107); Creatinine, Serum 1.22 mg/dL (0.70-1.30); EST Glomerular Filtration Rate 64 mL/min (>60); Est Glom Filt Rate - Afr Amer 77 mL/min (>60); Estimated Creatinine Clearance 61.98 ml/min; Glucose 124 mg/dL (74-106); Magnesium 1.7 mg/dL (1.6-2.6); Potassium 3.7 mmol/L (3.5-5.1); Sodium Level 143 mmol/L (136-145)
[2019-05-04] MEDS: DULoxetine Hcl 60 MG Capsule PO ×2 (08:17→21:20)
[2019-05-04] MEDS: Metoprolol Tartrate 50 MG Tablet PO ×2 (08:18→21:18)
[2019-05-04] MEDS: hydroCHLOROthiazide 25 MG Tablet PO (08:18)
[2019-05-04] MEDS: Pantoprazole Sodium 40 MG Tablet PO (08:18)
[2019-05-04] MEDS: Lisinopril 20 MG Tablet PO (08:18)
[2019-05-04] MEDS: Timolol 0.25% 5ML OPTH.BTL 1 DRP OPHTHALMIC (08:20)
--- NOTE | 2019-05-04 11:11 | CASEMGMT ---
RN CM Assessment Presentation: Open R hemicolectomy w/primary anastomosis Intro role of CM and purpose of RN CM assessment to patient in room. Pt is awake, alert and able to participate in assessment. Demographics, PCP and Pharmacy verified. No contact was listed on demographics- pt states he is , and Melissa Lainez is his NOK. Information given to Registration to add to demographic sheet. PCP: Dr. John Villalta Specialists: Dr. Waldron, surgeon. Dr. Mark Medina, cardiology ([place]); Dr. Alix Stauffer, endocrinology- pt states he was evaluated for Cushings/anxiety in past, negative but sees this physician once a year. 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 Preferred Pharmacy: [facility] Insurance: Mavin [facility] Prescription Benefit: yes LNOK: Melissa Lainez, . pt states she does not use cell ivania Living Arrangements: Lives independently with in bilevel home. 12 steps to main level for bedrooms, bath and living area. Pt states he used a cane on occasion for walking distances, is independent with ADL. plans to be home a few days on dc. Transportation: pt drives and can drive DME: cane, cpap HHC: none Patient DC goals: Home DC PLAN: Home. Jacquelyn HUITRON RN ACM
[2019-05-04] MEDS: 0.9% Normal Saline 1,000 ML 999 ML IV (14:47)
[2019-05-04] MEDS: Latanoprost 0.005% 1 Bottle 1 DRP OPHTHALMIC (21:19)
[2019-05-04] MEDS: amLODIPine 10 MG Tablet PO (21:19)
[2019-05-04] MEDS: clonazePAM 1 MG Tablet 2 MG PO (21:20)
[2019-05-04] MEDS: Atorvastatin Calcium 10 MG Tablet PO (21:20)
[2019-05-05] VITALS (7 sets, daily range): BP systolic 128–152; BP diastolic 63–79; PULSE 63–78; RESP 18; TEMP 36.5–37.4; O2SAT 94–98
[2019-05-05] MEDS: Morphine 4 MG/ML Syringe IV ×4 (00:17→23:10)
[2019-05-05] MEDS: busPIRone 5 MG Tablet 10 MG PO ×3 (05:07→22:37)
[2019-05-05] MEDS: Ketorolac 15 MG/ML Vial IV ×3 (05:08→22:39)
[2019-05-05] MEDS: 0.9% Normal Saline 1,000 ML 125 ML IV ×3 (07:28→23:09)
--- NOTE | 2019-05-05 10:04 | PCM.PN.SRG ---
Patient Problems: Active and Suspected Problems (Last Reviewed 04/18/19 @ 13:46 by Sylvie Benitez) Rectal bleeding (Acute) RUQ abdominal pain (Acute) Subjective: Patient reports that he is still not passing any flatus. No nausea or vomiting. Abdominal pain is well controlled. - Physical Exam Vitals/I&O's: Vital Signs Temp Pulse Resp BP Pulse Ox 97.7 F L 63 18 143/63 H 96 05/05/19 02:26 05/05/19 02:26 05/05/19 02:26 05/05/19 02:26 05/05/19 07:22 Oxygen Flow Rate (L/min) 2 Oxygen Delivery Method Nasal Cannula Weight: 302 lb 8.011 oz Body Mass Index (BMI) 44.6 Intake and Output for Last 24 Hours 05/03/19 05/04/19 05/05/19 23:59 23:59 23:59 Intake Total 4932.50 / 4932.50 3987.50 / 3987.50 981.25 / 981.25 Output Total 900 / 900 730 / 730 Balance 4032.50 / 4032.50 3257.50 / 3257.50 981.25 / 981.25 General: Alert, Oriented x3 Abdomen: Soft, Non-Distended Current Medications Acetaminophen (Tylenol) 500 mg PO Q4H PRN PRN PRN Reason: Pain 1-10/10 or Fever Last Admin: 05/04/19 04:58 Dose: 500 mg Documented by: Amlodipine Besylate (Norvasc) 10 mg PO QHS [facility] Last Admin: 05/04/19 21:19 Dose: 10 mg Documented by: Atorvastatin Calcium (Lipitor) 10 mg PO HS [facility] Last Admin: 05/04/19 21:20 Dose: 10 mg Documented by: Buspirone HCl (Buspar) 10 mg PO TID [facility] Last Admin: 05/05/19 05:07 Dose: 10 mg Documented by: Cholecalciferol (Vitamin D) 2,000 unit PO DAILY [facility] Last Admin: 05/04/19 08:19 Dose: 2,000 unit Documented by: Clonazepam (Klonopin) 2 mg PO QHS [facility] Last Admin: 05/04/19 21:20 Dose: 2 mg Documented by: Duloxetine HCl (Cymbalta) 60 mg PO BID [facility] Last Admin: 05/04/19 21:20 Dose: 60 mg Documented by: Ergocalciferol (Vitamin D) 50,000 unit PO [place]@0800 [facility] Hydrochlorothiazide (Hctz) 25 mg PO DAILY [facility] Last Admin: 05/04/19 08:18 Dose: 25 mg Documented by: Sodium Chloride () 1,000 mls @ 125 mls/hr IV .Q8H [facility] Last Admin: 05/05/19 07:28 Dose: 125 mls/hr Documented by: Sodium Chloride () 250 mls @ 15 mls/hr IV .[id number] PRN PRN Reason: Saline Flush Ketorolac Tromethamine (Toradol) 15 mg IV Q8 [facility] Stop: 05/08/19 22:01 Last Admin: 05/05/19 05:08 Dose: 15 mg Documented by: Latanoprost (Xalatan Opthalmic) 1 drop OPHTHALMIC QPM [facility] Last Admin: 05/04/19 21:19 Dose: 1 drop Documented by: Lisinopril (Zestril) 20 mg PO DAILY [facility] Last Admin: 05/04/19 08:18 Dose: 20 mg Documented by: Metoprolol Tartrate (Lopressor (Beta Carl)) 50 mg PO BID [facility] Last Admin: 05/04/19 21:18 Dose: 50 mg Documented by: Morphine Sulfate () 4 - 6 mg IV Q2H PRN PRN PRN Reason: Pain Score 6-10/10 Last Admin: 05/05/19 05:11 Dose: 4 mg Documented by: Ondansetron HCl (Zofran) 4 mg IV Q6H PRN PRN PRN Reason: NAUSEA/VOMITING Last Admin: 05/03/19 23:21 Dose: 4 mg Documented by: Pantoprazole Sodium (Protonix) 40 mg PO DAILY [facility] Last Admin: 05/04/19 08:18 Dose: 40 mg Documented by: Sodium Chloride () 10 - 40 ml IV UD PRN PRN Reason: SALINE FLUSH Last Admin: 05/04/19 03:11 Dose: 10 ml Documented by: Timolol Maleate (Timoptic) 1 drop OPHTHALMIC DAILY [facility] Last Admin: 05/04/19 08:20 Dose: 1 drop Documented by: Medical Necessity - Tobacco Use Smoking Status: Never smoker Tobacco Use: Non-smoker Assessment/Plan All Active Problems (Last Reviewed 04/18/19 @ 13:46 by Sylvie Benitez) Rectal bleeding (Acute) RUQ abdominal pain (Acute) 63-year-old male status post right hemicolectomy for hepatic flexure cancer 1. Patient had borderline urine output and was given a bolus yesterday. He is not having any nausea or vomiting but does not have any bowel function yet. Continue IV fluids and SCDs. Add Lovenox. Advance diet once bowel function begins. Domingo Russo MD Pager: [facility] [address] [place] [address], [address] [place] [address] Office:
[2019-05-05] MEDS: DULoxetine Hcl 60 MG Capsule PO ×2 (10:13→22:39)
[2019-05-05] MEDS: Lisinopril 20 MG Tablet PO (10:14)
[2019-05-05] MEDS: hydroCHLOROthiazide 25 MG Tablet PO (10:19)
[2019-05-05] MEDS: Metoprolol Tartrate 50 MG Tablet PO ×2 (10:19→22:38)
[2019-05-05] MEDS: Pantoprazole Sodium 40 MG Tablet PO (10:20)
[2019-05-05] MEDS: Timolol 0.25% 5ML OPTH.BTL 1 DRP OPHTHALMIC (10:20)
[2019-05-05] MEDS: Enoxaparin 40 MG/0.4 ML Syringe SC (11:57)
[2019-05-05] MEDS: Latanoprost 0.005% 1 Bottle 1 DRP OPHTHALMIC (20:30)
[2019-05-05] MEDS: 0.9% Saline Lock 10 ML Syringe IV ×2 (20:42→23:14)
[2019-05-05] MEDS: clonazePAM 1 MG Tablet 2 MG PO (22:37)
[2019-05-05] MEDS: amLODIPine 10 MG Tablet PO (22:38)
[2019-05-05] MEDS: Atorvastatin Calcium 10 MG Tablet PO (22:39)
[2019-05-06] VITALS (8 sets, daily range): BP systolic 144–166; BP diastolic 79–94; PULSE 69–93; RESP 16–20; TEMP 36.6–37.1; O2SAT 93–95
[2019-05-06 06:56] LABS: Absolute Lymphocyte Count 0.94 X10^3/uL (0.83-4.51); Absolute Neutrophil Count 5.5 X10^3/uL (2.0-7.7); Basophil# 0.03 X10^3/uL; Basophil% 0.4 % (0-1); Eosinophil# 0.25 X10^3/uL; Eosinophils% 3.5 % (0-5); Hemoglobin 9.6 g/dL (13.0-16.5); Lymphocyte # 0.94 X10^3/ul (4.0); Lymphocyte % 13.1 % (19-41); Mean Corpuscular Hgb 24.9 pg (27.0-32.0); Mean Corpuscular Volume 83.1 fL (80-94); Mean Platelet Vol. 10.2 fl (6.2-12.0); Monocyte# 0.47 X10^3/uL; Monocyte% 6.5 % (0-10); NRBC Flagged by Analyzer 0 % (0-5); Neutrophil # 5.48 X10^3/uL (2.7-7.7); Neutrophil % 76.1 % (47-70); Platelet Count 250 K/mm3 (150-450); RBC Distribution Width CV 16.1 % (11.6-14.6); RBC Distribution Width SD 48.4 fl (35.1-43.9); Red Blood Count 3.85 M/mm3 (4.6-6.2); White Blood Count 7.2 K/mm3 (4.4-11.0)
[2019-05-06] MEDS: busPIRone 5 MG Tablet 10 MG PO ×3 (07:02→22:55)
[2019-05-06] MEDS: Ketorolac 15 MG/ML Vial IV ×3 (07:02→23:34)
[2019-05-06] MEDS: 0.9% Saline Lock 10 ML Syringe IV ×6 (07:03→23:35)
[2019-05-06] MEDS: 0.9% Normal Saline 1,000 ML 125 ML IV (07:39)
[2019-05-06] MEDS: Morphine 4 MG/ML Syringe IV ×3 (07:41→20:29)
[2019-05-06 07:42] LABS: Anion Gap 4 (5-15); BUN 7 mg/dL (7-18); BUN/Creat Ratio 7.2 RATIO (10-20); Chloride 106 mmol/L (98-107); Creatinine, Serum 0.97 mg/dL (0.70-1.30); EST Glomerular Filtration Rate 83 mL/min (>60); Est Glom Filt Rate - Afr Amer 101 mL/min (>60); Estimated Creatinine Clearance 77.95 ml/min; Glucose 80 mg/dL (74-106); Potassium 2.7 mmol/L (3.5-5.1); Sodium Level 141 mmol/L (136-145)
[2019-05-06 08:31] LABS: Magnesium 1.6 mg/dL (1.6-2.6)
[2019-05-06] MEDS: Metoprolol Tartrate 50 MG Tablet PO ×2 (08:35→22:54)
[2019-05-06] MEDS: Enoxaparin 40 MG/0.4 ML Syringe SC (08:35)
[2019-05-06] MEDS: Ensure Clear 120 ML Liquid PO ×2 (08:35→12:31)
[2019-05-06] MEDS: hydroCHLOROthiazide 25 MG Tablet PO (08:36)
[2019-05-06] MEDS: DULoxetine Hcl 60 MG Capsule PO ×2 (08:36→22:55)
[2019-05-06] MEDS: Pantoprazole Sodium 40 MG Tablet PO (08:36)
[2019-05-06] MEDS: Lisinopril 20 MG Tablet PO (08:37)
[2019-05-06] MEDS: Timolol 0.25% 5ML OPTH.BTL 1 DRP OPHTHALMIC (08:39)
--- NOTE | 2019-05-06 09:11 | PN.SURG_ITS ---
Patient Problems: Active and Suspected Problems (Last Reviewed 04/18/19 @ 13:46 by Sylvie Benitez) Rectal bleeding (Acute) RUQ abdominal pain (Acute) Subjective: Patient did pass large amount of gas, has been advanced to clears, patient reports urinating better. - Physical Exam Vitals/I&O's: Vital Signs Temp Pulse Resp BP Pulse Ox 98.7 F 70 16 161/79 H 93 05/06/19 08:23 05/06/19 08:35 05/06/19 08:23 05/06/19 08:23 05/06/19 08:23 Oxygen Flow Rate (L/min) 2 Oxygen Delivery Method Room Air Weight: 302 lb 8.011 oz Body Mass Index (BMI) 44.6 Intake and Output for Last 24 Hours 05/04/19 05/05/19 05/06/19 23:59 23:59 23:59 Intake Total 3987.50 / 3987.50 3116.67 / 3116.67 1087.08 / 1087.08 Output Total 730 / 730 1030 / 2760 2530 / 2530 Balance 3257.50 / 3257.50 2086.67 / 356.67 -1442.92 / -1442.92 General: Alert, Oriented x3, Cooperative, No apparent distress HEENT: Atraumatic Lungs: Normal air movement Cardiovascular: Regular rate Abdomen: Soft, Non-Distended, Tender - Near midline incisions, clean dry and intact with daphne Extremities: No clubbing, No cyanosis, No edema Neurological: Cranial nerves II-XII grossly intact Psych/Mental Status: Normal Affect Laboratory Results 05/06/19 05:55: Magnesium 1.6 05/06/19 06:15: WBC 7.2, RBC 3.85 L, Hgb 9.6 L, Hct 32.0 L, MCV 83.1, MCH 24.9 L , MCHC 30.0 L, RDW Std Deviation 48.4 H, RDW Coeff of Devan 16.1 H, Plt Count 250, MPV 10.2, Immature Gran % (Auto) 0.400, Neut % (Auto) 76.1 H, Lymph % (Auto) 13.1 L, [place] % (Auto) 6.5, Eos % (Auto) 3.5, Baso % (Auto) 0.4, Absolute Neuts (auto) 5.5, Absolute Lymphs (auto) 0.94, Nucleated RBC % 0 05/06/19 06:15: Sodium 141, Potassium 2.7 L*, Chloride 106, Carbon Dioxide 31.0, Anion Gap 4 L, BUN 7, Creatinine 0.97, Estim Creat Clear Calc 77.95, Est GFR (MDRD) Af Amer 101, Est GFR (MDRD) Non-Af 83, BUN/Creatinine Ratio 7.2 L, Glucose 80, Calcium 8.0 L Current Medications Acetaminophen (Tylenol) 650 mg PO Q6H PRN PRN PRN Reason: Pain 1-03/02 or Fever Amlodipine Besylate (Norvasc) 10 mg PO QHS [facility] Last Admin: 05/05/19 22:38 Dose: 10 mg Documented by: Atorvastatin Calcium (Lipitor) 10 mg PO HS [facility] Last Admin: 05/05/19 22:39 Dose: 10 mg Documented by: Buspirone HCl (Buspar) 10 mg PO TID [facility] Last Admin: 05/06/19 07:02 Dose: 10 mg Documented by: Cholecalciferol (Vitamin D) 2,000 unit PO DAILY [facility] Last Admin: 05/06/19 08:37 Dose: 2,000 unit Documented by: Clonazepam (Klonopin) 2 mg PO QHS [facility] Last Admin: 05/05/19 22:37 Dose: 2 mg Documented by: Duloxetine HCl (Cymbalta) 60 mg PO BID [facility] Last Admin: 05/06/19 08:36 Dose: 60 mg Documented by: Enoxaparin Sodium (Lovenox) 40 mg SC DAILY [facility] Last Admin: 05/06/19 08:35 Dose: 40 mg Documented by: Ergocalciferol (Vitamin D) 50,000 unit PO [place]@0800 [facility] Hydrochlorothiazide (Hctz) 25 mg PO DAILY [facility] Last Admin: 05/06/19 08:36 Dose: 25 mg Documented by: Sodium Chloride () 1,000 mls @ 60 mls/hr IV .[id number] [facility] Last Infusion: 05/06/19 07:52 Dose: 60 mls/hr Documented by: Sodium Chloride () 250 mls @ 15 mls/hr IV .[id number] PRN PRN Reason: Saline Flush Ketorolac Tromethamine (Toradol) 15 mg IV Q8 [facility] Stop: 05/08/19 22:01 Last Admin: 05/06/19 07:02 Dose: 15 mg Documented by: Latanoprost (Xalatan Opthalmic) 1 drop OPHTHALMIC QPM [facility] Last Admin: 05/05/19 20:30 Dose: 1 drop Documented by: Lisinopril (Zestril) 20 mg PO DAILY [facility] Last Admin: 05/06/19 08:37 Dose: 20 mg Documented by: Metoprolol Tartrate (Lopressor (Beta Carl)) 50 mg PO BID [facility] Last Admin: 05/06/19 08:35 Dose: 50 mg Documented by: Morphine Sulfate () 4 - 6 mg IV Q2H PRN PRN PRN Reason: Pain Score 6-10/10 Last Admin: 05/06/19 07:41 Dose: 4 mg Documented by: Nutritional Formula (Lactose Free) (Ensure Clear) 120 ml PO TIDCM [facility] Last Admin: 05/06/19 08:35 Dose: 120 ml Documented by: Ondansetron HCl (Zofran) 4 mg IV Q6H PRN PRN PRN Reason: NAUSEA/VOMITING Last Admin: 05/03/19 23:21 Dose: 4 mg Documented by: Oxycodone HCl (Oxyir) 5 - 10 mg PO Q4H PRN PRN PRN Reason: Pain Score 6-10/10 Pantoprazole Sodium (Protonix) 40 mg PO DAILY [facility] Last Admin: 05/06/19 08:36 Dose: 40 mg Documented by: Sodium Chloride () 10 - 40 ml IV UD PRN PRN Reason: SALINE FLUSH Last Admin: 05/06/19 07:40 Dose: 10 ml Documented by: Timolol Maleate (Timoptic) 1 drop OPHTHALMIC DAILY [facility] Last Admin: 05/06/19 08:39 Dose: 1 drop Documented by: Medical Necessity - Tobacco Use Smoking Status: Never smoker Tobacco Use: Non-smoker Assessment/Plan All Active Problems (Last Reviewed 04/18/19 @ 13:46 by Sylvie Benitez) Rectal bleeding (Acute) RUQ abdominal pain (Acute) 63-year-old male status post open right hemicolectomy due to colon cancer 1. We will advance patient to clears this morning if tolerates will advance to transitional and if tolerates may be able to be DC'd home. 2. Hypo-kalemia, replaced 3. Continue ambulation/I-S Azul Colon M.D. Pager: [phone] [facility] [address] [place] [address], [facility], [address] [place] [address] Office: [phone]
--- NOTE | 2019-05-06 09:13 | PCM.DC.GS ---
Discharge Diet: - - Transitional diet Discharge Activity: May not drive while taking narcotic pain medications., May Shower Lifting Restrictions: No lifting greater than 20 pounds x 4 weeks Call your doctor if your incision/area has: Continuous Slow Oozing, Sudden Increased Bleeding, Increased Pain/ Swelling, Increased Redness, Foul Smelling Discharge, Swelling at the incision site Call your doctor if you observe: Fever of 101 or Higher Change Dressing in (Days):: 1 - If there is no drainage from incision okay to leave incision open to air Additional Instructions: Okay to take ibuprofen 400-600 mg PO q6hr PRN along with the Percocet. Avoid Tylenol since there is already Tylenol in the Percocet. Take all pain meds with food. Percocet can cause constipation recommend taking daily stool softener (i.e. Colace/docusate) while taking the pain meds. Allergies/Adverse Reactions: Allergies No Known Allergies Allergy (Verified 05/02/19 08:09) Medications to take at Discharge acetaminophen 500 mg tablet 500 mg PO Q4H PRN 03/14/19 amlodipine 10 mg tablet 10 mg PO QHS 03/14/19 buspirone 10 mg tablet 10 mg PO TID 03/14/19 cholecalciferol (vitamin D3) 50 mcg (2,000 unit) capsule 2,000 unit PO DAILY 03/14/19 clonazepam 2 mg tablet 2 mg PO QHS 03/14/19 duloxetine 60 mg capsule,delayed release 60 mg PO BID cap 03/14/19 ergocalciferol (vitamin D2) 50,000 unit capsule 50,000 unit PO QWEEK 03/14/19 ferrous sulfate 325 mg (65 mg iron) tablet 325 mg PO DAILY 03/14/19 latanoprost 0.005 % eye drops 1 drp OPHTHALMIC QPM 03/14/19 lisinopril 20 mg tablet 20 mg PO DAILY 03/14/19 lovastatin 40 mg tablet 40 mg PO QHS 03/14/19 metoprolol tartrate 50 mg tablet 50 mg PO BID 03/14/19 omega-3 fatty acids 1,000 mg capsule 1,000 mg PO DAILY 03/14/19 omeprazole 40 mg capsule,delayed release 40 mg PO DAILY #60 cap 03/14/19 timolol 0.5 % eye drops 1 drp OPHTHALMIC DAILY 03/14/19 Glucos Sul 2Kcl/MSM/Chond/C/Mn [Glucosamine Chondroitin Cap] 1 ea PO BID 03/29/19 Sucralfate [Carafate] 1 gm PO 4X/DAY 03/29/19 Ubidecarenone [Co Q-10] 200 mg PO DAILY 03/29/19 aspirin 81 mg tablet,delayed release 81 mg PO DAILY 04/18/19 ergocalciferol (vitamin D2) 50,000 unit capsule 50,000 unit PO QWEEK 04/18/19 hydrochlorothiazide 25 mg tablet 25 mg PO DAILY 04/18/19 metoprolol succinate ER 50 mg tablet,extended release 24 hr 50 mg PO BID 04/18/19 Oxycodone HCl/Acetaminophen [Percocet 5/325] 1 - 2 tablet PO Q6H PRN PRN 6 Days #30 tablet 05/06/19 Primary Care Physician: John Villalta [Primary Care Provider] - Test Results: Test results from this visit will be discussed in further detail at your follow-up appointment, if applicable. Please Follow Up With: Domingo Russo MD - At 5:00 and on the weekends call [phone] with any concerns When: Call the office for f/u appt in 10 to 12 days from surg, for staple removal Proposed Discharge Date: 05/06/19
[2019-05-06] MEDS: Lactated Ringers 1,000 ML 60 ML IV (17:46)
[2019-05-06] MEDS: Ondansetron 4 MG/2 ML Vial IV (21:58)
[2019-05-06] MEDS: amLODIPine 10 MG Tablet PO (22:55)
[2019-05-06] MEDS: clonazePAM 1 MG Tablet 2 MG PO (23:05)
[2019-05-06] MEDS: Latanoprost 0.005% 1 Bottle 1 DRP OPHTHALMIC (23:36)
[2019-05-07] VITALS (8 sets, daily range): BP systolic 126–140; BP diastolic 79–88; PULSE 62–84; RESP 16–18; TEMP 36.5–36.8; O2SAT 90–100
[2019-05-07] MEDS: 0.9% Saline Lock 10 ML Syringe IV ×6 (02:56→07:50)
[2019-05-07] MEDS: Ondansetron 4 MG/2 ML Vial IV (05:46)
[2019-05-07] MEDS: Lactated Ringers 1,000 ML 60 ML IV (06:28)
[2019-05-07] MEDS: busPIRone 5 MG Tablet 10 MG PO ×3 (06:29→21:38)
[2019-05-07] MEDS: Ketorolac 15 MG/ML Vial IV ×3 (06:30→21:38)
--- NOTE | 2019-05-07 06:54 | RAD_ITS ---
STUDY: X-RAY - ABDOMEN/PELVIS REASON FOR EXAM: Male, 63 years old. Nausea, dry heaving, status post abdominal surgery TECHNIQUE: Single AP view of the abdomen / pelvis. COMPARISON: CT from 05/02/2019 FINDINGS: Excluded lung bases. Surgical skin daphne are noted. Gaseous distention of small bowel Teto: But no transition point is identified. There is no demonstrated free abdominal air. The visualized liver, spleen and kidneys are grossly normal in size and morphology. There are calcified phleboliths in the pelvis. Normal visualized osseous structures. RAD/Abdomen Single View IMPRESSION: Probable postoperative ileus. Electronically Signed: Everton Hamilton MD (Brooks) at 12:13 EST , Service support ,
[2019-05-07 07:00] LABS: Anion Gap 5 (5-15); BUN 10 mg/dL (7-18); BUN/Creat Ratio 8.7 RATIO (10-20); Calcium,Total 8.2 mg/dL (8.5-10.1); Chloride 104 mmol/L (98-107); Creatinine, Serum 1.15 mg/dL (0.70-1.30); EST Glomerular Filtration Rate 68 mL/min (>60); Est Glom Filt Rate - Afr Amer 82 mL/min (>60); Estimated Creatinine Clearance 65.75 ml/min; Glucose 108 mg/dL (74-106); Potassium 3.2 mmol/L (3.5-5.1); Sodium Level 139 mmol/L (136-145)
[2019-05-07] MEDS: proMETHazine 25 MG/ML Syringe 12.5 MG IV (07:02)
--- NOTE | 2019-05-07 07:23 | PCM.PN.SRG ---
Patient Problems: Active and Suspected Problems (Last Reviewed 04/18/19 @ 13:46 by Sylvie Benitez) Rectal bleeding (Acute) RUQ abdominal pain (Acute) Subjective: Patient initially tolerated clears yesterday however did not tolerate the transitional diet as he was not continued to have flatus and had not been walking much. Patient did 2 laps last night initially felt better and then still having some abdominal pain and bloating this morning and not really any flatus with some burping. - Physical Exam Vitals/I&O's: Vital Signs Temp Pulse Resp BP Pulse Ox 97.7 F L 84 18 140/88 H 93 05/07/19 02:33 05/07/19 02:33 05/07/19 02:33 05/07/19 02:33 05/07/19 02:33 Oxygen Flow Rate (L/min) 2 Oxygen Delivery Method Room Air Weight: 302 lb 8.011 oz Body Mass Index (BMI) 44.6 Intake and Output for Last 24 Hours 05/05/19 05/06/19 05/07/19 23:59 23:59 23:59 Intake Total 3116.67 / 3116.67 2430.08 / 2430.08 786 / 786 Output Total 1030 / 2760 2530 / 2530 Balance 2086.67 / 356.67 -99.92 / -99.92 786 / 786 General: Alert, Oriented x3, Cooperative, No apparent distress Abdomen: Soft, Distended, Tender - Diffusely mainly by incision, no peritoneal signs Neurological: Cranial nerves II-XII grossly intact Laboratory Results 05/06/19 05:55: Magnesium 1.6 05/06/19 06:15: Sodium 141, Potassium 2.7 L*, Chloride 106, Carbon Dioxide 31.0, Anion Gap 4 L, BUN 7, Creatinine 0.97, Estim Creat Clear Calc 77.95, Est GFR (MDRD) Af Amer 101, Est GFR (MDRD) Non-Af 83, BUN/Creatinine Ratio 7.2 L, Glucose 80, Calcium 8.0 L 05/07/19 04:55: Sodium 139, Potassium 3.2 L, Chloride 104, Carbon Dioxide 30.0, Anion Gap 5, BUN 10, Creatinine 1.15, Estim Creat Clear Calc 65.75, Est GFR (MDRD) Af Amer 82, Est GFR (MDRD) Non-Af 68, BUN/Creatinine Ratio 8.7 L, Glucose 108 H, Calcium 8.2 L Current Medications Acetaminophen (Tylenol) 650 mg PO Q6H PRN PRN PRN Reason: Pain 1-03/02 or Fever Amlodipine Besylate (Norvasc) 10 mg PO QHS [facility] Last Admin: 05/06/19 22:55 Dose: 10 mg Documented by: Atorvastatin Calcium (Lipitor) 10 mg PO HS [facility] Last Admin: 05/06/19 22:48 Dose: Not Given Documented by: Buspirone HCl (Buspar) 10 mg PO TID [facility] Last Admin: 05/07/19 06:29 Dose: 10 mg Documented by: Cholecalciferol (Vitamin D) 2,000 unit PO DAILY [facility] Last Admin: 05/06/19 08:37 Dose: 2,000 unit Documented by: Clonazepam (Klonopin) 2 mg PO QHS [facility] Last Admin: 05/06/19 23:05 Dose: 2 mg Documented by: Duloxetine HCl (Cymbalta) 60 mg PO BID [facility] Last Admin: 05/06/19 22:55 Dose: 60 mg Documented by: Enoxaparin Sodium (Lovenox) 40 mg SC DAILY [facility] Last Admin: 05/06/19 08:35 Dose: 40 mg Documented by: Ergocalciferol (Vitamin D) 50,000 unit PO [place]@0800 [facility] Hydrochlorothiazide (Hctz) 25 mg PO DAILY [facility] Last Admin: 05/06/19 08:36 Dose: 25 mg Documented by: Sodium Chloride () 250 mls @ 15 mls/hr IV .[id number] PRN PRN Reason: Saline Flush Lactated Ringer's () 1,000 mls @ 60 mls/hr IV .[id number] [facility] Last Infusion: 05/07/19 07:09 Dose: 0 mls/hr Documented by: Ketorolac Tromethamine (Toradol) 15 mg IV Q8 [facility] Stop: 05/08/19 22:01 Last Admin: 05/07/19 06:30 Dose: 15 mg Documented by: Latanoprost (Xalatan Opthalmic) 1 drop OPHTHALMIC QPM [facility] Last Admin: 05/06/19 23:36 Dose: 1 drop Documented by: Lisinopril (Zestril) 20 mg PO DAILY [facility] Last Admin: 05/06/19 08:37 Dose: 20 mg Documented by: Metoprolol Tartrate (Lopressor (Beta Carl)) 50 mg PO BID [facility] Last Admin: 05/06/19 22:54 Dose: 50 mg Documented by: Morphine Sulfate () 4 - 6 mg IV Q2H PRN PRN PRN Reason: Pain Score 6-10/10 Last Admin: 05/06/19 20:29 Dose: 4 mg Documented by: Nutritional Formula (Lactose Free) (Ensure Clear) 120 ml PO TIDCM [facility] Last Admin: 05/06/19 16:52 Dose: Not Given Documented by: Ondansetron HCl (Zofran) 4 mg IV Q6H PRN PRN PRN Reason: NAUSEA/VOMITING Last Admin: 05/07/19 05:46 Dose: 4 mg Documented by: Oxycodone HCl (Oxyir) 5 - 10 mg PO Q4H PRN PRN PRN Reason: Pain Score 6-10/10 Pantoprazole Sodium (Protonix) 40 mg PO DAILY [facility] Last Admin: 05/06/19 08:36 Dose: 40 mg Documented by: Sodium Chloride () 10 - 40 ml IV UD PRN PRN Reason: SALINE FLUSH Last Admin: 05/07/19 07:09 Dose: 20 ml Documented by: Timolol Maleate (Timoptic) 1 drop OPHTHALMIC DAILY [facility] Last Admin: 05/06/19 08:39 Dose: 1 drop Documented by: Medical Necessity - Tobacco Use Smoking Status: Never smoker Tobacco Use: Non-smoker Assessment/Plan All Active Problems (Last Reviewed 04/18/19 @ 13:46 by Sylvie Benitez) Rectal bleeding (Acute) RUQ abdominal pain (Acute) 63-year-old male status post open right hemicolectomy due to colon cancer 1. Change patient back to n.p.o./meds only as he states he is not having much flatus. Will check KUB 2. Hypo-kalemia, will replace 3. Encourage ambulation KUB appears to be an ileus as he does have large amount of gas in the distal transverse colon but also distended small bowel. Azul Colon M.D. Pager: [phone] [facility] [address] [place] [address], [facility], [address] [place] [id number] Office: [phone]
[2019-05-07] MEDS: Lactated Ringers 500 ML IV.SOLN. IV (07:50)
[2019-05-07] MEDS: Potassium Chloride 10mEq/100mL 10 MEQ/100 ML IV.SOLN. 100 MEQ IV BOLUS ×4 (10:04→13:58)
[2019-05-07] MEDS: Lisinopril 20 MG Tablet PO (10:13)
[2019-05-07] MEDS: DULoxetine Hcl 60 MG Capsule PO ×2 (10:13→21:37)
[2019-05-07] MEDS: Timolol 0.25% 5ML OPTH.BTL 1 DRP OPHTHALMIC (10:15)
[2019-05-07] MEDS: Metoprolol Tartrate 50 MG Tablet PO ×2 (10:15→21:38)
[2019-05-07] MEDS: hydroCHLOROthiazide 25 MG Tablet PO (10:16)
[2019-05-07] MEDS: Enoxaparin 40 MG/0.4 ML Syringe SC (10:16)
[2019-05-07] MEDS: Pantoprazole Sodium 40 MG Tablet PO (10:16)
[2019-05-07 12:15] LABS: Bedside Glucose 109 mg/dL (70-110)
[2019-05-07] MEDS: Lactated Ringers 1,000 ML 125 ML IV ×2 (12:39→20:28)
[2019-05-07] MEDS: Lactated Ringers 1,000 ML 999 ML IV (13:36)
[2019-05-07] MEDS: Tamsulosin HCl 0.4 MG Capsule PO (15:05)
--- NOTE | 2019-05-07 15:47 | PCM.PN.BLA ---
Progress Note late entry: 14:35 Pt is still sleepy after getting the phenergan for N, but no further N, has not ambulated this AM but was up to the chair, UOP 150 with bladder scan of about 240 cc done about 1 hr after void- pt admits to issues with urination even before surgery- started flomax. Pt had small BM and small amount of flatus. STROKE Vital Signs/Narrative: Vital Signs Temp Pulse Resp BP Pulse Ox 05/07/19 15:06 97.9 F 62 16 136/80 H 94
[2019-05-07] MEDS: Latanoprost 0.005% 1 Bottle 1 DRP OPHTHALMIC (21:36)
[2019-05-07] MEDS: Atorvastatin Calcium 10 MG Tablet PO (21:37)
[2019-05-07] MEDS: amLODIPine 10 MG Tablet PO (21:37)
[2019-05-07] MEDS: clonazePAM 1 MG Tablet 2 MG PO (21:41)
[2019-05-08] VITALS (7 sets, daily range): BP systolic 121–141; BP diastolic 71–78; PULSE 56–83; RESP 16–18; TEMP 36.7–37; O2SAT 94–97
--- NOTE | 2019-05-08 | NURSING ---
Pt up ambulating in hallway at this time. Pt also ambulated in hallway @ 21:30. Tolerated well.
[2019-05-08] MEDS: oxyCODONE 5 MG Tablet PO (02:42)
[2019-05-08] MEDS: Lactated Ringers 1,000 ML 125 ML IV ×2 (04:19→12:10)
[2019-05-08] MEDS: Ketorolac 15 MG/ML Vial IV ×3 (05:50→22:25)
[2019-05-08] MEDS: busPIRone 5 MG Tablet 10 MG PO ×3 (05:50→22:15)
[2019-05-08 06:05] LABS: Anion Gap 5 (5-15); BUN 14 mg/dL (7-18); BUN/Creat Ratio 12.3 RATIO (10-20); Calcium,Total 8.1 mg/dL (8.5-10.1); Chloride 106 mmol/L (98-107); Creatinine, Serum 1.14 mg/dL (0.70-1.30); EST Glomerular Filtration Rate 69 mL/min (>60); Est Glom Filt Rate - Afr Amer 83 mL/min (>60); Estimated Creatinine Clearance 66.32 ml/min; Glucose 97 mg/dL (74-106); Sodium Level 140 mmol/L (136-145)
--- NOTE | 2019-05-08 08:07 | PCM.PN.SRG ---
Patient Problems: Active and Suspected Problems (Last Reviewed 04/18/19 @ 13:46 by Sylvie Benitez) Rectal bleeding (Acute) RUQ abdominal pain (Acute) Subjective: Patient reports he is still not passing any significant flatus. He is not having any nausea or vomiting. He does have some right-sided abdominal pain. - Physical Exam Vitals/I&O's: Vital Signs Temp Pulse Resp BP Pulse Ox 98.1 F 67 16 130/74 H 97 05/08/19 02:35 05/08/19 02:35 05/08/19 02:35 05/08/19 02:35 05/08/19 02:35 Oxygen Flow Rate (L/min) 2 Oxygen Delivery Method CPAP Weight: 302 lb 8.011 oz Body Mass Index (BMI) 44.6 Intake and Output for Last 24 Hours 05/06/19 05/07/19 05/08/19 23:59 23:59 23:59 Intake Total 2430.08 / 2430.08 3762.66 / 3762.66 1041.25 / 1041.25 Output Total 2530 / 2530 1125 / 1125 300 / 300 Balance -99.92 / -99.92 2637.66 / 2637.66 741.25 / 741.25 General: Alert, Oriented x3 Lungs: Clear to auscultation Cardiovascular: Regular rate, Regular Rhythm Abdomen: Soft Laboratory Results 05/07/19 11:36: POC Glucose 109 05/08/19 05:25: Sodium 140, Potassium 3.0 L, Chloride 106, Carbon Dioxide 29.0, Anion Gap 5, BUN 14, Creatinine 1.14, Estim Creat Clear Calc 66.32, Est GFR (MDRD) Af Amer 83, Est GFR (MDRD) Non-Af 69, BUN/Creatinine Ratio 12.3, Glucose 97, Calcium 8.1 L Current Medications Acetaminophen (Tylenol) 650 mg PO Q6H PRN PRN PRN Reason: Pain 1-10/10 or Fever Amlodipine Besylate (Norvasc) 10 mg PO QHS [facility] Last Admin: 05/07/19 21:37 Dose: 10 mg Documented by: Atorvastatin Calcium (Lipitor) 10 mg PO HS [facility] Last Admin: 05/07/19 21:37 Dose: 10 mg Documented by: Buspirone HCl (Buspar) 10 mg PO TID [facility] Last Admin: 05/08/19 05:50 Dose: 10 mg Documented by: Cholecalciferol (Vitamin D) 2,000 unit PO DAILY [facility] Last Admin: 05/07/19 10:13 Dose: 2,000 unit Documented by: Clonazepam (Klonopin) 2 mg PO QHS [facility] Last Admin: 05/07/19 21:41 Dose: 2 mg Documented by: Duloxetine HCl (Cymbalta) 60 mg PO BID [facility] Last Admin: 05/07/19 21:37 Dose: 60 mg Documented by: Enoxaparin Sodium (Lovenox) 40 mg SC DAILY [facility] Last Admin: 05/07/19 10:16 Dose: 40 mg Documented by: Ergocalciferol (Vitamin D) 50,000 unit PO [place]@0800 [facility] Last Admin: 05/07/19 10:14 Dose: 50,000 unit Documented by: Hydrochlorothiazide (Hctz) 25 mg PO DAILY [facility] Last Admin: 05/07/19 10:16 Dose: 25 mg Documented by: Sodium Chloride () 250 mls @ 15 mls/hr IV .[id number] PRN PRN Reason: Saline Flush Lactated Ringer's () 1,000 mls @ 125 mls/hr IV .Q8H [facility] Last Admin: 05/08/19 04:19 Dose: 125 mls/hr Documented by: Potassium Chloride () 10 meq in 100 mls @ 100 mls/hr IV BOLUS Q1H [facility] Stop: 05/08/19 12:14 Ketorolac Tromethamine (Toradol) 15 mg IV Q8 [facility] Stop: 05/08/19 22:01 Last Admin: 05/08/19 05:50 Dose: 15 mg Documented by: Latanoprost (Xalatan Opthalmic) 1 drop OPHTHALMIC QPM [facility] Last Admin: 05/07/19 21:36 Dose: 1 drop Documented by: Lisinopril (Zestril) 20 mg PO DAILY [facility] Last Admin: 05/07/19 10:13 Dose: 20 mg Documented by: Metoprolol Tartrate (Lopressor (Beta Carl)) 50 mg PO BID [facility] Last Admin: 05/07/19 21:38 Dose: 50 mg Documented by: Morphine Sulfate () 4 - 6 mg IV Q2H PRN PRN PRN Reason: Pain Score 6-10/10 Last Admin: 05/06/19 20:29 Dose: 4 mg Documented by: Nutritional Formula (Lactose Free) (Ensure Clear) 120 ml PO TIDCM [facility] Last Admin: 05/07/19 17:03 Dose: Not Given Documented by: Ondansetron HCl (Zofran) 4 mg IV Q6H PRN PRN PRN Reason: NAUSEA/VOMITING Last Admin: 05/07/19 05:46 Dose: 4 mg Documented by: Oxycodone HCl (Oxyir) 5 - 10 mg PO Q4H PRN PRN PRN Reason: Pain Score -03/02 Last Admin: 05/08/19 02:42 Dose: 5 mg Documented by: Pantoprazole Sodium (Protonix) 40 mg PO DAILY [facility] Last Admin: 05/07/19 10:16 Dose: 40 mg Documented by: Sodium Chloride () 10 - 40 ml IV UD PRN PRN Reason: SALINE FLUSH Last Admin: 05/07/19 07:50 Dose: 10 ml Documented by: Tamsulosin HCl (Flomax) 0.4 mg PO DAILY@1730 [facility] Last Admin: 05/07/19 15:05 Dose: 0.4 mg Documented by: Timolol Maleate (Timoptic) 1 drop OPHTHALMIC DAILY [facility] Last Admin: 05/07/19 10:15 Dose: 1 drop Documented by: Medical Necessity - Tobacco Use Smoking Status: Never smoker Tobacco Use: Non-smoker Assessment/Plan All Active Problems (Last Reviewed 04/18/19 @ 13:46 by Sylvie Benitez) Rectal bleeding (Acute) RUQ abdominal pain (Acute) 63-year-old male status post right hemicolectomy for colon cancer 1. Patient had KUB yesterday which shows postoperative ileus. He is not passing any significant flatus. Continue n.p.o. and IV fluids. Encourage ambulation. Hypokalemia-replaced Domingo Russo MD Pager: [facility] [address] [place] [address], [address] [place] [address] Office:
[2019-05-08] MEDS: Ensure Clear 120 ML Liquid PO ×3 (08:52→22:35)
[2019-05-08] MEDS: Potassium Chloride 10mEq/100mL 10 MEQ/100 ML IV.SOLN. 100 MEQ IV BOLUS ×4 (09:00→12:09)
[2019-05-08] MEDS: hydroCHLOROthiazide 25 MG Tablet PO (10:05)
[2019-05-08] MEDS: DULoxetine Hcl 60 MG Capsule PO ×2 (10:05→22:15)
[2019-05-08] MEDS: Enoxaparin 40 MG/0.4 ML Syringe SC (10:06)
[2019-05-08] MEDS: Pantoprazole Sodium 40 MG Tablet PO (10:06)
[2019-05-08] MEDS: Timolol 0.25% 5ML OPTH.BTL 1 DRP OPHTHALMIC (10:07)
[2019-05-08] MEDS: Lisinopril 20 MG Tablet PO (10:07)
[2019-05-08] MEDS: 0.9% Saline Lock 10 ML Syringe IV ×2 (15:00→22:29)
[2019-05-08] MEDS: Tamsulosin HCl 0.4 MG Capsule PO (18:27)
[2019-05-08] MEDS: amLODIPine 10 MG Tablet PO (22:15)
[2019-05-08] MEDS: Metoprolol Tartrate 50 MG Tablet PO (22:24)
[2019-05-08] MEDS: Latanoprost 0.005% 1 Bottle 1 DRP OPHTHALMIC (22:26)
[2019-05-08] MEDS: Atorvastatin Calcium 10 MG Tablet PO (22:28)
--- NOTE | 2019-05-08 22:30 | NURSING ---
pt ambulated halls on two separate occasions and sat up in chair this evening
[2019-05-08] MEDS: clonazePAM 1 MG Tablet 2 MG PO (22:35)
[2019-05-09] VITALS (7 sets, daily range): BP systolic 132–142; BP diastolic 73–91; PULSE 65–73; RESP 16–18; TEMP 36.2–36.8; O2SAT 94–99
[2019-05-09] MEDS: busPIRone 5 MG Tablet 10 MG PO ×3 (05:18→21:27)
[2019-05-09] MEDS: Acetaminophen 325 MG Tablet 650 MG PO ×3 (05:21→21:28)
[2019-05-09 05:54] LABS: Absolute Lymphocyte Count 1.07 X10^3/uL (0.83-4.51); Absolute Neutrophil Count 4.4 X10^3/uL (2.0-7.7); Basophil# 0.04 X10^3/uL; Basophil% 0.6 % (0-1); Eosinophil# 0.34 X10^3/uL; Eosinophils% 5.3 % (0-5); Hematocrit 33.1 % (40-54); Hemoglobin 10.1 g/dL (13.0-16.5); Lymphocyte # 1.07 X10^3/ul (4.0); Lymphocyte % 16.7 % (19-41); Mean Corp Hgb Conc 30.5 g/dL (32-36); Mean Corpuscular Hgb 24.6 pg (27.0-32.0); Mean Corpuscular Volume 80.5 fL (80-94); Mean Platelet Vol. 10.6 fl (6.2-12.0); Monocyte# 0.57 X10^3/uL; Monocyte% 8.9 % (0-10); NRBC Flagged by Analyzer 0 % (0-5); Neutrophil # 4.38 X10^3/uL (2.7-7.7); Neutrophil % 68.3 % (47-70); Platelet Count 285 K/mm3 (150-450); RBC Distribution Width CV 16.6 % (11.6-14.6); RBC Distribution Width SD 48.6 fl (35.1-43.9); Red Blood Count 4.11 M/mm3 (4.6-6.2); White Blood Count 6.4 K/mm3 (4.4-11.0)
[2019-05-09 06:13] LABS: Anion Gap 7 (5-15); BUN 13 mg/dL (7-18); BUN/Creat Ratio 11.8 RATIO (10-20); Calcium,Total 8.3 mg/dL (8.5-10.1); Chloride 104 mmol/L (98-107); EST Glomerular Filtration Rate 72 mL/min (>60); Est Glom Filt Rate - Afr Amer 87 mL/min (>60); Estimated Creatinine Clearance 68.74 ml/min; Glucose 99 mg/dL (74-106); Magnesium 1.9 mg/dL (1.6-2.6); Potassium 2.9 mmol/L (3.5-5.1); Sodium Level 139 mmol/L (136-145)
--- NOTE | 2019-05-09 07:37 | PCM.PN.SRG ---
Patient Problems: Active and Suspected Problems (Last Reviewed 04/18/19 @ 13:46 by Sylvie Benitez) Rectal bleeding (Acute) RUQ abdominal pain (Acute) Subjective: Patient reports he is tolerating clears with no nausea or vomiting but he is still not passing significant flatus only small amounts. - Physical Exam Vitals/I&O's: Vital Signs Temp Pulse Resp BP Pulse Ox 97.9 F 73 18 142/82 H 94 05/09/19 02:25 05/09/19 02:25 05/09/19 02:25 05/09/19 02:25 05/09/19 02:25 Oxygen Flow Rate (L/min) 2 Oxygen Delivery Method Room Air Weight: 302 lb 8.011 oz Body Mass Index (BMI) 44.6 Intake and Output for Last 24 Hours 05/07/19 05/08/19 05/09/19 23:59 23:59 23:59 Intake Total 3762.66 / 3762.66 3481.25 / 3481.25 240 / 240 Output Total 1125 / 1125 550 / 550 400 / 400 Balance 2637.66 / 2637.66 2931.25 / 2931.25 -160 / -160 General: Alert, Oriented x3 Lungs: Normal air movement Cardiovascular: Regular rate, Regular Rhythm Abdomen: Soft, Non Tender, Non-Distended Laboratory Results 05/09/19 05:15: WBC 6.4, RBC 4.11 L, Hgb 10.1 L, Hct 33.1 L, MCV 80.5, MCH 24.6 L, MCHC 30.5 L, RDW Std Deviation 48.6 H, RDW Coeff of Devan 16.6 H, Plt Count 285, MPV 10.6, Immature Gran % (Auto) 0.200, Neut % (Auto) 68.3, Lymph % (Auto) 16.7 L, [place] % (Auto) 8.9, Eos % (Auto) 5.3 H, Baso % (Auto) 0.6, Absolute Neuts (auto) 4.4, Absolute Lymphs (auto) 1.07, Nucleated RBC % 0 05/09/19 05:15: Sodium 139, Potassium 2.9 L, Chloride 104, Carbon Dioxide 28.0, Anion Gap 7, BUN 13, Creatinine 1.10, Estim Creat Clear Calc 68.74, Est GFR (MDRD) Af Amer 87, Est GFR (MDRD) Non-Af 72, BUN/Creatinine Ratio 11.8, Glucose 99, Calcium 8.3 L, Phosphorus 4.0, Magnesium 1.9 Current Medications Acetaminophen (Tylenol) 650 mg PO Q6H PRN PRN PRN Reason: Pain 1-03/02 or Fever Last Admin: 05/09/19 05:21 Dose: 650 mg Documented by: Amlodipine Besylate (Norvasc) 10 mg PO QHS [facility] Last Admin: 05/08/19 22:15 Dose: 10 mg Documented by: Atorvastatin Calcium (Lipitor) 10 mg PO HS [facility] Last Admin: 05/08/19 22:28 Dose: 10 mg Documented by: Buspirone HCl (Buspar) 10 mg PO TID [facility] Last Admin: 05/09/19 05:18 Dose: 10 mg Documented by: Cholecalciferol (Vitamin D) 2,000 unit PO DAILY [facility] Last Admin: 05/08/19 10:07 Dose: 2,000 unit Documented by: Clonazepam (Klonopin) 2 mg PO QHS [facility] Last Admin: 05/08/19 22:35 Dose: 2 mg Documented by: Duloxetine HCl (Cymbalta) 60 mg PO BID [facility] Last Admin: 05/08/19 22:15 Dose: 60 mg Documented by: Enoxaparin Sodium (Lovenox) 40 mg SC DAILY [facility] Last Admin: 05/08/19 10:06 Dose: 40 mg Documented by: Ergocalciferol (Vitamin D) 50,000 unit PO [place]@0800 [facility] Last Admin: 05/07/19 10:14 Dose: 50,000 unit Documented by: Hydrochlorothiazide (Hctz) 25 mg PO DAILY [facility] Last Admin: 05/08/19 10:05 Dose: 25 mg Documented by: Sodium Chloride () 250 mls @ 15 mls/hr IV .[id number] PRN PRN Reason: Saline Flush Latanoprost (Xalatan Opthalmic) 1 drop OPHTHALMIC QPM [facility] Last Admin: 05/08/19 22:26 Dose: 1 drop Documented by: Lisinopril (Zestril) 20 mg PO DAILY [facility] Last Admin: 05/08/19 10:07 Dose: 20 mg Documented by: Metoprolol Tartrate (Lopressor (Beta Carl)) 50 mg PO BID [facility] Last Admin: 05/08/19 22:24 Dose: 50 mg Documented by: Morphine Sulfate () 4 - 6 mg IV Q2H PRN PRN PRN Reason: Pain Score 6-1010 Last Admin: 05/06/19 20:29 Dose: 4 mg Documented by: Nutritional Formula (Lactose Free) (Ensure Clear) 120 ml PO TIDCM [facility] Last Admin: 05/08/19 22:35 Dose: 120 ml Documented by: Ondansetron HCl (Zofran) 4 mg IV Q6H PRN PRN PRN Reason: NAUSEA/VOMITING Last Admin: 05/07/19 05:46 Dose: 4 mg Documented by: Oxycodone HCl (Oxyir) 5 - 10 mg PO Q4H PRN PRN PRN Reason: Pain Score 6-1010 Last Admin: 05/08/19 02:42 Dose: 5 mg Documented by: Pantoprazole Sodium (Protonix) 40 mg PO DAILY [facility] Last Admin: 05/08/19 10:06 Dose: 40 mg Documented by: Pot[facility] Sodium Chloride () 10 - 40 ml IV UD PRN PRN Reason: SALINE FLUSH Last Admin: 05/08/19 22:29 Dose: 10 ml Documented by: Tamsulosin HCl (Flomax) 0.4 mg PO DAILY@1730 [facility] Last Admin: 05/08/19 18:27 Dose: 0.4 mg Documented by: Timolol Maleate (Timoptic) 1 drop OPHTHALMIC DAILY [facility] Last Admin: 05/08/19 10:07 Dose: 1 drop Documented by: Medical Necessity - Tobacco Use Smoking Status: Never smoker Tobacco Use: Non-smoker Assessment/Plan All Active Problems (Last Reviewed 04/18/19 @ 13:46 by Sylvie Benitez) Rectal bleeding (Acute) RUQ abdominal pain (Acute) 63-year-old male status post right hemicolectomy Patient reports he is doing well but he is only passing small amounts of flatus. He is tolerating clear liquids. Continue clears until he passes more significant bowel function and then we will advance his diet and possibly discharge. Domingo Russo MD Pager: [facility] [address] [place] [address], [address] [place] [phone] Office:
[2019-05-09] MEDS: hydroCHLOROthiazide 25 MG Tablet PO (09:10)
[2019-05-09] MEDS: Metoprolol Tartrate 50 MG Tablet PO ×2 (09:10→21:33)
[2019-05-09] MEDS: Pantoprazole Sodium 40 MG Tablet PO (09:10)
[2019-05-09] MEDS: Lisinopril 20 MG Tablet PO (09:10)
[2019-05-09] MEDS: DULoxetine Hcl 60 MG Capsule PO ×2 (09:10→21:28)
[2019-05-09] MEDS: Enoxaparin 40 MG/0.4 ML Syringe SC (09:11)
[2019-05-09] MEDS: Ensure Clear 120 ML Liquid PO ×2 (09:11→12:28)
[2019-05-09] MEDS: Timolol 0.25% 5ML OPTH.BTL 1 DRP OPHTHALMIC (09:11)
[2019-05-09] MEDS: oxyCODONE 5 MG Tablet PO (09:14)
[2019-05-09] MEDS: Tamsulosin HCl 0.4 MG Capsule PO (17:09)
[2019-05-09] MEDS: Latanoprost 0.005% 1 Bottle 1 DRP OPHTHALMIC (21:27)
[2019-05-09] MEDS: clonazePAM 1 MG Tablet 2 MG PO (21:28)
[2019-05-09] MEDS: Atorvastatin Calcium 10 MG Tablet PO (21:29)
[2019-05-09] MEDS: amLODIPine 10 MG Tablet PO (21:29)
--- NOTE | 2019-05-09 23:37 | NURSING ---
walking in [place] with walker gait steady
[2019-05-10 01:56] VITALS: BP 139/84; PULSE 68; RESP 18; TEMP 37; O2SAT 95
[2019-05-10] MEDS: busPIRone 5 MG Tablet 10 MG PO (05:44)
[2019-05-10] MEDS: Pantoprazole Sodium 40 MG Tablet PO (05:44)
[2019-05-10] MEDS: 0.9% Saline Lock 10 ML Syringe IV ×5 (05:45→21:46)
[2019-05-10] MEDS: Acetaminophen 325 MG Tablet 650 MG PO (05:48)
[2019-05-10] MEDS: Ondansetron 4 MG/2 ML Vial IV ×2 (06:30→21:46)
--- NOTE | 2019-05-10 07:00 | CT_ITS ---
STUDY: CT ABDOMEN AND PELVIS WITH CONTRAST REASON FOR EXAM: Male, 63 years old. Six-month history of right upper quadrant pain. Patient has a history of colon carcinoma. RADIATION DOSAGE (If Supplied By Facility): CTDIvol = ( 18.74 ) mGy, DLP = ( 1444.41 ) mGycm TECHNIQUE: Transaxial images were obtained from the dome of the diaphragm to the symphysis pubis with oral contrast. Oral and amp; IV Gastrografin and amp; 100mL Isovue-370 was administered. Sagittal and coronal images were reconstructed. Individualized dose optimization techniques were used for this CT. COMPARISON: Comparison is made with prior examination dated May 02, 2019. FINDINGS: Minimal bilateral pleural thickening with increased markings at the lung bases suggestive of atelectasis. This is more prominent on the right side. 2 mm noncalcified nodule in the lateral aspect of the right lower lobe. The visualized portions of the heart are within normal limits. Normal liver. Small amount of perihepatic fluid. Findings suggestive of sludge within the gallbladder lumen. Normal spleen. Normal pancreas. Normal bilateral adrenal glands. Stable bilateral renal cysts. There is a marked degree of fluid distention of the stomach. Minimally dilated fluid-filled small bowel loops. Gas is seen within the transverse colon. This may represent an ileus pattern. Incomplete small bowel obstruction should be considered as well. Follow-up is recommended. The patient is status post right hemicolectomy. Postoperative changes are seen in the surrounding peritoneal fat. Normal abdominal aorta. Normal inferior vena cava. There is borderline retroperitoneal lymphadenopathy with enlarged nodes no greater than 10mm in the short axis diameter. Normal urinary bladder. Small amount of free fluid in the pelvis. Normal abdominal wall. There are degenerative changes of the visualized lumbar spine. CT/Abdomen/Pelvis WITH Contrast IMPRESSION: Status post right hemicolectomy with postoperative changes seen in the region of the right lower quadrant and pelvis included with prior resection. Fluid-filled slightly distended multiple small bowel loops. Fluid-filled markedly distended stomach. Small amount of ascites. Electronically Signed: Isaac Finnegan, at 12:20 EST , Service support ,
[2019-05-10 07:45] LABS: Absolute Lymphocyte Count 0.81 X10^3/uL (0.83-4.51); Basophil# 0.03 X10^3/uL; Basophil% 0.5 % (0-1); Eosinophil# 0.19 X10^3/uL; Eosinophils% 2.9 % (0-5); Hematocrit 35.8 % (40-54); Hemoglobin 11.1 g/dL (13.0-16.5); Lymphocyte # 0.81 X10^3/ul (4.0); Lymphocyte % 12.3 % (19-41); Mean Corpuscular Hgb 25.1 pg (27.0-32.0); Mean Corpuscular Volume 80.8 fL (80-94); Mean Platelet Vol. 10.4 fl (6.2-12.0); Monocyte# 0.54 X10^3/uL; Monocyte% 8.2 % (0-10); NRBC Flagged by Analyzer 0 % (0-5); Neutrophil # 4.98 X10^3/uL (2.7-7.7); Neutrophil % 75.8 % (47-70); Platelet Count 321 K/mm3 (150-450); RBC Distribution Width CV 16.5 % (11.6-14.6); RBC Distribution Width SD 48.1 fl (35.1-43.9); Red Blood Count 4.43 M/mm3 (4.6-6.2); White Blood Count 6.6 K/mm3 (4.4-11.0)
[2019-05-10 07:46] LABS: Anion Gap 8 (5-15); BUN 9 mg/dL (7-18); BUN/Creat Ratio 7.2 RATIO (10-20); Chloride 106 mmol/L (98-107); Creatinine, Serum 1.25 mg/dL (0.70-1.30); EST Glomerular Filtration Rate 62 mL/min (>60); Est Glom Filt Rate - Afr Amer 75 mL/min (>60); Estimated Creatinine Clearance 60.49 ml/min; Glucose 121 mg/dL (74-106); Potassium 3.3 mmol/L (3.5-5.1); Sodium Level 140 mmol/L (136-145)
--- NOTE | 2019-05-10 08:52 | PN.SURG_ITS ---
Patient Problems: Active and Suspected Problems (Last Reviewed 04/18/19 @ 13:46 by Sylvie Benitez) Rectal bleeding (Acute) RUQ abdominal pain (Acute) Subjective: Patient had vomiting this morning - Physical Exam Vitals/I&O's: Vital Signs Temp Pulse Resp BP Pulse Ox 98.6 F 68 18 139/84 H 95 05/10/19 01:56 05/10/19 01:56 05/10/19 01:56 05/10/19 01:56 05/10/19 01:56 Oxygen Flow Rate (L/min) 2 Oxygen Delivery Method Room Air Weight: 302 lb 8.011 oz Body Mass Index (BMI) 44.6 Intake and Output for Last 24 Hours 05/08/19 05/09/19 05/10/19 23:59 23:59 23:59 Intake Total 3481.25 / 3481.25 1100 / 1100 200 / 200 Output Total 550 / 550 1250 / 1250 150 / 150 Balance 2931.25 / 2931.25 -150 / -150 50 / 50 General: Alert, Oriented x3 Neck: No JVD Lungs: Normal air movement Abdomen: Soft, Distended Laboratory Results 05/10/19 07:26: WBC 6.6, RBC 4.43 L, Hgb 11.1 L, Hct 35.8 L, MCV 80.8, MCH 25.1 L, MCHC 31.0 L, RDW Std Deviation 48.1 H, RDW Coeff of Devan 16.5 H, Plt Count 321, MPV 10.4, Immature Gran % (Auto) 0.300, Neut % (Auto) 75.8 H, Lymph % (Auto) 12.3 L, [place] % (Auto) 8.2, Eos % (Auto) 2.9, Baso % (Auto) 0.5, Absolute Neuts (auto) 5.0, Absolute Lymphs (auto) 0.81 L, Nucleated RBC % 0 05/10/19 07:26: Sodium 140, Potassium 3.3 L, Chloride 106, Carbon Dioxide 26.0, Anion Gap 8, BUN 9, Creatinine 1.25, Estim Creat Clear Calc 60.49, Est GFR (MDRD) Af Amer 75, Est GFR (MDRD) Non-Af 62, BUN/Creatinine Ratio 7.2 L, Glucose 121 H, Calcium 9.0 Current Medications Acetaminophen (Tylenol) 650 mg PO Q6H PRN PRN PRN Reason: Pain 1-1010 or Fever Last Admin: 05/10/19 05:48 Dose: 650 mg Documented by: Amlodipine Besylate (Norvasc) 10 mg PO QHS [facility] Last Admin: 05/09/19 21:29 Dose: 10 mg Documented by: Atorvastatin Calcium (Lipitor) 10 mg PO HS [facility] Last Admin: 05/09/19 21:29 Dose: 10 mg Documented by: Buspirone HCl (Buspar) 10 mg PO TID [facility] Last Admin: 05/10/19 05:44 Dose: 10 mg Documented by: Cholecalciferol (Vitamin D) 2,000 unit PO DAILY [facility] Last Admin: 05/09/19 09:10 Dose: 2,000 unit Documented by: Clonazepam (Klonopin) 2 mg PO QHS [facility] Last Admin: 05/09/19 21:28 Dose: 2 mg Documented by: Duloxetine HCl (Cymbalta) 60 mg PO BID [facility] Last Admin: 05/09/19 21:28 Dose: 60 mg Documented by: Enoxaparin Sodium (Lovenox) 40 mg SC DAILY [facility] Last Admin: 05/09/19 09:11 Dose: 40 mg Documented by: Ergocalciferol (Vitamin D) 50,000 unit PO [place]@0800 [facility] Last Admin: 05/07/19 10:14 Dose: 50,000 unit Documented by: Hydrochlorothiazide (Hctz) 25 mg PO DAILY [facility] Last Admin: 05/09/19 09:10 Dose: 25 mg Documented by: Sodium Chloride () 250 mls @ 15 mls/hr IV .[id number] PRN PRN Reason: Saline Flush Magnesium Sulfate 2 gm/ Sodium (Chloride) 104 mls @ 52 mls/hr IV X1 ONE Stop: 05/10/19 09:29 Latanoprost (Xalatan Opthalmic) 1 drop OPHTHALMIC QPM [facility] Last Admin: 05/09/19 21:27 Dose: 1 drop Documented by: Lisinopril (Zestril) 20 mg PO DAILY [facility] Last Admin: 05/09/19 09:10 Dose: 20 mg Documented by: Metoprolol Tartrate (Lopressor (Beta Carl)) 50 mg PO BID [facility] Last Admin: 05/09/19 21:33 Dose: 50 mg Documented by: Morphine Sulfate () 4 - 6 mg IV Q2H PRN PRN PRN Reason: Pain Score 6-10/10 Last Admin: 05/06/19 20:29 Dose: 4 mg Documented by: Nutritional Formula (Lactose Free) (Ensure Clear) 120 ml PO TIDCM [facility] Last Admin: 05/10/19 07:23 Dose: Not Given Documented by: Ondansetron HCl (Zofran) 4 mg IV Q6H PRN PRN PRN Reason: NAUSEA/VOMITING Last Admin: 05/10/19 06:30 Dose: 4 mg Documented by: Oxycodone HCl (Oxyir) 5 - 10 mg PO Q4H PRN PRN PRN Reason: Pain Score 6-10/10 Last Admin: 05/09/19 09:14 Dose: 5 mg Documented by: Pantoprazole Sodium (Protonix) 40 mg PO DAILY [facility] Last Admin: 05/10/19 05:44 Dose: 40 mg Documented by: Potassium Chloride (K-Dur) 40 meq PO BIDCM [facility] Last Admin: 05/09/19 17:08 Dose: 40 meq Documented by: Sodium Chloride () 10 - 40 ml IV UD PRN PRN Reason: SALINE FLUSH Last Admin: 05/10/19 06:30 Dose: 10 ml Documented by: Tamsulosin HCl (Flomax) 0.4 mg PO DAILY@1730 [facility] Last Admin: 05/09/19 17:09 Dose: 0.4 mg Documented by: Timolol Maleate (Timoptic) 1 drop OPHTHALMIC DAILY [facility] Last Admin: 05/09/19 09:11 Dose: 1 drop Documented by: Medical Necessity - Tobacco Use Smoking Status: Never smoker Tobacco Use: Non-smoker Assessment/Plan All Active Problems (Last Reviewed 04/18/19 @ 13:46 by Sylvie Benitez) Rectal bleeding (Acute) RUQ abdominal pain (Acute) 63-year-old male status post right hemicolectomy for colon cancer The patient had vomiting this morning after clear liquids. He is still distended. He still reports he is only passing minimal flatus. I am going to order a CT scan with oral and IV contrast to ensure that there is no obstruction. Patient is still hypokalemic and I will replace his magnesium as well. Domingo Russo MD Pager: [facility] [address] [place] [address], [address] [place] [address] Office:
[2019-05-10 08:55] VITALS: BP 150/86; PULSE 71; RESP 18; TEMP 36.4; O2SAT 97
[2019-05-10] MEDS: Morphine 4 MG/ML Syringe IV (09:18)
[2019-05-10] MEDS: Potassium Chloride 10mEq/100mL 10 MEQ/100 ML IV.SOLN. 100 MEQ IV BOLUS ×4 (10:46→14:23)
[2019-05-10 10:47] VITALS: PULSE 71
[2019-05-10] MEDS: Enoxaparin 40 MG/0.4 ML Syringe SC (11:01)
[2019-05-10] MEDS: Timolol 0.25% 5ML OPTH.BTL 1 DRP OPHTHALMIC (11:02)
[2019-05-10 16:50] VITALS: BP 152/97; PULSE 87; RESP 18; TEMP 36.4; O2SAT 95
[2019-05-10] MEDS: Latanoprost 0.005% 1 Bottle 1 DRP OPHTHALMIC (21:41)
[2019-05-10 21:50] VITALS: BP 136/81; PULSE 88; RESP 18; TEMP 36.8; O2SAT 97
[2019-05-11] VITALS (18 sets, daily range): BP systolic 131–157; BP diastolic 66–86; PULSE 79–91; RESP 16–18; TEMP 36.4–38.2; O2SAT 84–100
--- NOTE | 2019-05-11 03:53 | NURSING ---
pt walking in [place] with walker, gait steady
--- NOTE | 2019-05-11 04:21 | CT_ITS ---
STUDY: CT ABDOMEN AND PELVIS WITHOUT CONTRAST REASON FOR EXAM: Male, 63 years old. dehiscence of surgical site RADIATION DOSAGE (If Supplied By Facility): CTDIvol = ( 23.82 ) mGy, DLP = ( 1261.82 ) mGycm TECHNIQUE: Transaxial images were obtained from the dome of the diaphragm to the symphysis pubis without oral contrast, and without intravenous contrast. Sagittal and coronal images were reconstructed. Individualized dose optimization techniques were used for this CT. COMPARISON: CT abdomen and pelvis from 05/10/2019 FINDINGS: The visualized lung bases demonstrate bilateral trace pleural thickening. The visualized portions of the heart are within normal limits. Normal liver. There is layering hyperdensities in the gallbladder likely due to underlying sludge. Normal spleen. Normal pancreas. Left adrenal gland is normal. There is a right adrenal gland nodule measuring approximately 3 cm in diameter density measuring 1 Hounsfield unit. There are bilateral renal cysts visualized. Normal visualized stomach. There is diffuse mildly dilated loops of small bowel which are fluid-filled. Patient is status post right hemicolectomy. The colon is decompressed. Normal abdominal aorta. Normal inferior vena cava. Normal retroperitoneum. Normal urinary bladder. There is trace pelvic free fluid. There is a midline abdominal wall incisional scar with overlying surgical staple line. There is a small fat-containing ventral abdominal wall hernia containing fat. No focal fluid collections are seen within the abdominal wall to suggest seroma or abscess formation. There are degenerative changes of the visualized lumbar spine. CT/Abdomen/Pelvis without Cont IMPRESSION: Status post right hemicolectomy with persistent fluid-filled loops of small bowel throughout the abdomen likely due to underlying ileus. Incisional scar within the midline abdomen without evidence for seroma or abscess formation. Interval increased herniation of abdominal fat deep to the incision site along the more superior aspect of the incision with defect measuring approximately 3.5 cm in transverse dimension series 2 images 65. There is no herniation of bowel loops. Bilateral renal cysts. Right adrenal gland adenoma. Electronically Signed: Elmer Wilder, at 5:19 EST Tel , Service support ,
--- NOTE | 2019-05-11 04:25 | NURSING ---
wound draining xlarge amt pink tinged serous fluid notified see physician notification @ [phone]
--- NOTE | 2019-05-11 05:16 | NURSING ---
Dr. Waldron called going to take back to surgery has small dehiscence to let his know at 6am.
--- NOTE | 2019-05-11 05:29 | NURSING ---
pt aware he is going to surgery this am asked if his needed notified and pt states he called her. pt resting quietly in bed denies needs. offered support pt appreciative
--- NOTE | 2019-05-11 06:05 | NURSING ---
report given to mariel in [facility]
[2019-05-11 06:12] LABS: Absolute Lymphocyte Count 0.85 X10^3/uL (0.83-4.51); Absolute Neutrophil Count 6.1 X10^3/uL (2.0-7.7); Basophil# 0.02 X10^3/uL; Basophil% 0.3 % (0-1); Eosinophil# 0.12 X10^3/uL; Eosinophils% 1.6 % (0-5); Hematocrit 33.6 % (40-54); Hemoglobin 10.3 g/dL (13.0-16.5); Lymphocyte # 0.85 X10^3/ul (4.0); Mean Corp Hgb Conc 30.7 g/dL (32-36); Mean Corpuscular Hgb 25.1 pg (27.0-32.0); Mean Platelet Vol. 10.3 fl (6.2-12.0); Monocyte# 0.53 X10^3/uL; Monocyte% 6.9 % (0-10); NRBC Flagged by Analyzer 0 % (0-5); Neutrophil # 6.14 X10^3/uL (2.7-7.7); Neutrophil % 79.7 % (47-70); Platelet Count 314 K/mm3 (150-450); RBC Distribution Width CV 16.5 % (11.6-14.6); RBC Distribution Width SD 48.9 fl (35.1-43.9); White Blood Count 7.7 K/mm3 (4.4-11.0)
[2019-05-11] MEDS: Lactated Ringers 1,000 ML 100 ML IV (06:28)
[2019-05-11 06:39] LABS: Anion Gap 6 (5-15); BUN 10 mg/dL (7-18); BUN/Creat Ratio 8.4 RATIO (10-20); Calcium,Total 8.5 mg/dL (8.5-10.1); Chloride 105 mmol/L (98-107); Creatinine, Serum 1.19 mg/dL (0.70-1.30); EST Glomerular Filtration Rate 65 mL/min (>60); Est Glom Filt Rate - Afr Amer 79 mL/min (>60); Estimated Creatinine Clearance 63.54 ml/min; Glucose 109 mg/dL (74-106); Potassium 3.4 mmol/L (3.5-5.1); Sodium Level 140 mmol/L (136-145)
--- NOTE | 2019-05-11 08:02 | PCM.PN.BLA ---
Progress Note The patient had an ileus with vomiting this morning. NG was attempted by the nursing staff as well as myself and we are unable to get NG placed. The patient refused any further attempts. This morning at 3 AM the patient was ambulating and felt a gush of fluid from his wound. CT scan was obtained which showed dehiscence of the fascia superior to the umbilicus. The patient was consented for exploration of wound and reclosure and the risks including but not limited to bleeding, infection, bowel injury were addressed and the patient agreed to proceed with surgery. Patient was taken back to surgery and the midline abdominal fascia was reapproximated using interrupted and running PDS sutures as well as retention sutures. OG was placed during the surgery and his stomach was evacuated but NG was still unable to be placed during anesthesia. The subcutaneous tissue was left open and packed, I will consult the wound nurse for wound VAC placement. Continue n.p.o. until patient is passing significant flatus and x-ray is returned to normal. Continue bedrest and abdominal binder. Domingo Russo MD Pager: [facility] [address] [place] [address], [address] [place] [address] Office:
--- NOTE | 2019-05-11 08:04 | PCM.OPRPT ---
Problem List (1) Rectal bleeding Status: Acute (2) RUQ abdominal pain Status: Acute Report of Operation Date of Procedure: 05/11/19 Pre-Operative Diagnosis: Midline fascial wound dehiscence Post-Operative Diagnosis: Same Surgery/Procedure Performed:: Exploration of midline wound with reclosure of fascia and placement of retention sutures Description of Procedure: The patient was brought back to the operating room and general anesthesia was induced with rapid sequence intubation. The OG was placed and about a liter of stomach contents were suctioned. Next the abdomen was prepped with Betadine and draped. The daphne were removed. There was an obvious herniation of abdominal fat through the midline incision. The knot from the previous PDS suture was cut and the superior fascia was opened. The abdomen was suctioned dry and inspected. The anastomosis was in good position with no twisting of bowel or internal hernia. Next the omental fat was placed over the bowel. A running #1 PDS looped suture was started at the top of the fascia and every few throws an interrupted 0 PDS in a [id number] fashion was placed. 4 retention sutures were placed through the skin and abdominal wall and tied around to bolster under direct visualization. Next the PDS suture was tightened and tied to the inferior PDS. Subcutaneous tissue was irrigated and suctioned and packed with a wet Kerlix. ABDs were placed over the dressing and the patient was taken to PACU in stable condition. Plan for wound VAC placement tomorrow. - Admit VTE Documentation VTE Mechan Device Prophylaxis: SCD's
[2019-05-11] MEDS: 0.9% Normal Saline 1,000 ML 75 ML IV (12:30)
[2019-05-11] MEDS: Sugammadex Sodium 200 MG/2 ML VIAL IV (13:39)
[2019-05-11] MEDS: Morphine 4 MG/ML Syringe IV (13:45)
[2019-05-11] MEDS: Timolol 0.25% 5ML OPTH.BTL 1 DRP OPHTHALMIC (13:51)
[2019-05-11] MEDS: DULoxetine Hcl 60 MG Capsule PO ×2 (15:39→21:41)
[2019-05-11] MEDS: hydroCHLOROthiazide 25 MG Tablet PO (15:40)
[2019-05-11] MEDS: Metoprolol Tartrate 50 MG Tablet PO ×2 (15:40→21:41)
[2019-05-11] MEDS: Lisinopril 20 MG Tablet PO (15:41)
[2019-05-11] MEDS: busPIRone 5 MG Tablet 10 MG PO ×2 (15:42→21:41)
[2019-05-11] MEDS: oxyCODONE 5 MG Tablet PO ×2 (15:47→21:50)
[2019-05-11] MEDS: Tamsulosin HCl 0.4 MG Capsule PO (17:45)
[2019-05-11] MEDS: Acetaminophen 325 MG Tablet 650 MG PO (20:21)
[2019-05-11] MEDS: amLODIPine 10 MG Tablet PO (21:41)
[2019-05-11] MEDS: Atorvastatin Calcium 10 MG Tablet PO (21:41)
[2019-05-11] MEDS: Latanoprost 0.005% 1 Bottle 1 DRP OPHTHALMIC (21:43)
[2019-05-11] MEDS: clonazePAM 1 MG Tablet 2 MG PO (21:45)
[2019-05-12] VITALS (8 sets, daily range): BP systolic 128–149; BP diastolic 64–84; PULSE 61–83; RESP 18; TEMP 37.1–37.4; O2SAT 91–98
[2019-05-12] MEDS: 0.9% Normal Saline 1,000 ML 75 ML IV ×2 (01:35→17:32)
[2019-05-12] MEDS: oxyCODONE 5 MG Tablet PO ×2 (02:54→07:06)
[2019-05-12] MEDS: busPIRone 5 MG Tablet 10 MG PO ×3 (05:49→22:51)
--- NOTE | 2019-05-12 05:55 | RAD_ITS ---
STUDY: X-RAY - ABDOMEN/PELVIS REASON FOR EXAM: Male, 63 years old. Post abd surgeries x 2 TECHNIQUE: Single AP view of the abdomen / pelvis. COMPARISON: Comparison is made with prior study dated February 06, 2000. FINDINGS: Normal visualized lung bases. Persistent gaseous dilatation of the small bowel loops. Minimal amount of gas is seen in the colon. This may represent either small bowel obstruction or small bowel ileus. This is essentially unchanged as compared to prior study. The visualized liver, spleen and kidneys are grossly normal in size and morphology. There are calcified phleboliths in the pelvis. Normal visualized osseous structures. RAD/Abdomen Single View (Portable) IMPRESSION: Persistent gaseous distention of the small bowel loops. There has been essentially no change. Electronically Signed: Isaac Finnegan, at 11:02 EST , Service support ,
--- NOTE | 2019-05-12 07:56 | NURSING ---
wound photo: mid abdomen
--- NOTE | 2019-05-12 08:22 | PN.SURG_ITS ---
Patient Problems: Active and Suspected Problems (Last Reviewed 04/18/19 @ 13:46 by Sylvie Benitez) Rectal bleeding (Acute) RUQ abdominal pain (Acute) Subjective: Patient is still not passing gas but no nausea or vomiting overnight. - Physical Exam Vitals/I&O's: Vital Signs Temp Pulse Resp BP Pulse Ox 99.4 F H 83 18 149/84 H 94 05/12/19 02:53 05/12/19 02:53 05/12/19 02:53 05/12/19 02:53 05/12/19 02:53 Oxygen Flow Rate (L/min) 2 Oxygen Delivery Method Room Air Weight: 302 lb 8.011 oz Body Mass Index (BMI) 44.6 Intake and Output for Last 24 Hours 05/10/19 05/11/19 05/12/19 23:59 23:59 23:59 Intake Total 1011.5 / 1011.5 958.33 / 958.33 981.25 / 981.25 Output Total 550 / 550 825 / 1600 1075 / 1075 Balance 461.5 / 461.5 133.33 / -641.67 -93.75 / -93.75 General: Alert, Oriented x3, Cooperative Cardiovascular: Regular rate Abdomen: Soft Current Medications Acetaminophen (Tylenol) 650 mg PO Q6H PRN PRN PRN Reason: Pain 1-10/10 or Fever Last Admin: 05/11/19 20:21 Dose: 650 mg Documented by: Amlodipine Besylate (Norvasc) 10 mg PO QHS [facility] Last Admin: 05/11/19 21:41 Dose: 10 mg Documented by: Atorvastatin Calcium (Lipitor) 10 mg PO HS [facility] Last Admin: 05/11/19 21:41 Dose: 10 mg Documented by: Buspirone HCl (Buspar) 10 mg PO TID [facility] Last Admin: 05/12/19 05:49 Dose: 10 mg Documented by: Cholecalciferol (Vitamin D) 2,000 unit PO DAILY [facility] Last Admin: 05/11/19 15:43 Dose: 2,000 unit Documented by: Clonazepam (Klonopin) 2 mg PO QHS [facility] Last Admin: 05/11/19 21:45 Dose: 2 mg Documented by: Duloxetine HCl (Cymbalta) 60 mg PO BID [facility] Last Admin: 05/11/19 21:41 Dose: 60 mg Documented by: Enoxaparin Sodium (Lovenox) 40 mg SC DAILY [facility] Last Admin: 05/11/19 15:40 Dose: Not Given Documented by: Ergocalciferol (Vitamin D) 50,000 unit PO [place]@0800 [facility] Last Admin: 05/07/19 10:14 Dose: 50,000 unit Documented by: Hydrochlorothiazide (Hctz) 25 mg PO DAILY [facility] Last Admin: 05/11/19 15:40 Dose: 25 mg Documented by: Sodium Chloride () 250 mls @ 15 mls/hr IV .[id number] PRN PRN Reason: Saline Flush Last Infusion: 05/10/19 15:45 Dose: 0 mls/hr Documented by: Pantoprazole Sodium 40 mg/ (Sodium Chloride) 110 mls @ 330 mls/hr IV Q24 [facility] Last Infusion: 05/11/19 13:55 Dose: Infused Documented by: Sodium Chloride () 1,000 mls @ 75 mls/hr IV .[id number] [facility] Last Admin: 05/12/19 01:35 Dose: 75 mls/hr Documented by: Latanoprost (Xalatan Opthalmic) 1 drop OPHTHALMIC QPM [facility] Last Admin: 05/11/19 21:43 Dose: 1 drop Documented by: Lisinopril (Zestril) 20 mg PO DAILY [facility] Last Admin: 05/11/19 15:41 Dose: 20 mg Documented by: Metoprolol Tartrate (Lopressor (Beta Carl)) 50 mg PO BID [facility] Last Admin: 05/11/19 21:41 Dose: 50 mg Documented by: Morphine Sulfate () 4 - 6 mg IV Q2H PRN PRN PRN Reason: Pain Score 6-10/10 Last Admin: 05/11/19 13:45 Dose: 4 mg Documented by: Ondansetron HCl (Zofran) 4 mg IV Q6H PRN PRN PRN Reason: NAUSEA/VOMITING Last Admin: 05/10/19 21:46 Dose: 4 mg Documented by: Oxycodone HCl (Oxyir) 5 - 10 mg PO Q4H PRN PRN PRN Reason: Pain Score 6-10/10 Last Admin: 05/12/19 07:06 Dose: 10 mg Documented by: Sodium Chloride () 10 - 40 ml IV UD PRN PRN Reason: SALINE FLUSH Last Admin: 05/10/19 21:46 Dose: 10 ml Documented by: Tamsulosin HCl (Flomax) 0.4 mg PO DAILY@1730 [facility] Last Admin: 05/11/19 17:45 Dose: 0.4 mg Documented by: Timolol Maleate (Timoptic) 1 drop OPHTHALMIC DAILY [facility] Last Admin: 05/11/19 13:51 Dose: 1 drop Documented by: Medical Necessity - Tobacco Use Smoking Status: Never smoker Tobacco Use: Non-smoker Assessment/Plan All Active Problems (Last Reviewed 04/18/19 @ 13:46 by Sylvie Benitez) Rectal bleeding (Acute) RUQ abdominal pain (Acute) 63-year-old male with right colon cancer status post right hemicolectomy and subsequent dehiscence with repair postop day 1 1. The patient had wound dehiscence yesterday which was repaired. Fascial sutures as well as retention sutures were placed. The subcutaneous packing was removed today and the fascia was inspected and it was intact. Wound VAC to be placed today. Continue n.p.o. and IV fluids until passing significant flatus. Continue ambulation and incentive spirometer. Domingo Russo MD Pager: [facility] [address] [place] [address], [address] [place] [address] Office:
[2019-05-12] MEDS: hydroCHLOROthiazide 25 MG Tablet PO (09:48)
[2019-05-12] MEDS: Enoxaparin 40 MG/0.4 ML Syringe SC (09:48)
[2019-05-12] MEDS: Timolol 0.25% 5ML OPTH.BTL 1 DRP OPHTHALMIC (09:49)
[2019-05-12] MEDS: Lisinopril 20 MG Tablet PO (09:50)
[2019-05-12] MEDS: Metoprolol Tartrate 50 MG Tablet PO ×2 (09:50→22:52)
[2019-05-12] MEDS: DULoxetine Hcl 60 MG Capsule PO ×2 (09:50→22:52)
[2019-05-12] MEDS: 0.9% Saline Lock 10 ML Syringe IV (09:51)
[2019-05-12] MEDS: Morphine 4 MG/ML Syringe IV (09:51)
--- NOTE | 2019-05-12 10:33 | CASEMGMT ---
ANDREAE DALTON updated by wound nurse that patient will need HHC to assist with vac changes. ANDREEA DALTON in to discuss with patient. ANDREEA DALTON provided list of HHC in-network with his insurance. Patient will be here through the weekend. ANDREEA DALTON will follow-up on Wednesday with choices for HHC. CM will continue to follow this patient and plan for a safe discharge.
[2019-05-12] MEDS: Tamsulosin HCl 0.4 MG Capsule PO (17:32)
[2019-05-12] MEDS: Latanoprost 0.005% 1 Bottle 1 DRP OPHTHALMIC (22:51)
[2019-05-12] MEDS: amLODIPine 10 MG Tablet PO (22:52)
[2019-05-12] MEDS: Atorvastatin Calcium 10 MG Tablet PO (22:52)
[2019-05-12] MEDS: clonazePAM 1 MG Tablet 2 MG PO (22:54)
[2019-05-13] VITALS (8 sets, daily range): BP systolic 122–137; BP diastolic 66–78; PULSE 61–71; RESP 16–18; TEMP 36.6–36.8; O2SAT 93–97
[2019-05-13] MEDS: Acetaminophen 325 MG Tablet 650 MG PO ×2 (04:29→10:31)
--- NOTE | 2019-05-13 05:52 | PN.SURG_ITS ---
Patient Problems: Active and Suspected Problems (Last Reviewed 04/18/19 @ 13:46 by Sylvie Benitez) Rectal bleeding (Acute) RUQ abdominal pain (Acute) Subjective: Patient states that he is felt agreeable to. His pain is much better than last week. No current nausea. Denies any flatus or stool - Physical Exam Vitals/I&O's: Vital Signs Temp Pulse Resp BP Pulse Ox 97.8 F 68 18 137/78 H 97 05/13/19 04:25 05/13/19 04:25 05/13/19 04:25 05/13/19 04:25 05/13/19 04:25 Oxygen Flow Rate (L/min) 2 Oxygen Delivery Method CPAP Weight: 302 lb 8.011 oz Body Mass Index (BMI) 44.6 Intake and Output for Last 24 Hours 05/11/19 05/12/19 05/13/19 23:59 23:59 23:59 Intake Total 958.33 / 958.33 2141.25 / 2191.25 50 / 50 Output Total 825 / 1600 1700 / 2100 400 / 400 Balance 133.33 / -641.67 441.25 / 91.25 -350 / -350 General: Alert, Oriented x3, Cooperative, No apparent distress Lungs: Clear to auscultation, - - Diminished in the bases Abdomen: Soft, Bowel Sounds Not Present, Distended - Notably rotund and distended, quiet, nontender, wound VAC in place Current Medications Acetaminophen (Tylenol) 650 mg PO Q6H PRN PRN PRN Reason: Pain 1-10/10 or Fever Last Admin: 05/13/19 04:29 Dose: 650 mg Documented by: Amlodipine Besylate (Norvasc) 10 mg PO QHS [facility] Last Admin: 05/12/19 22:52 Dose: 10 mg Documented by: Atorvastatin Calcium (Lipitor) 10 mg PO HS [facility] Last Admin: 05/12/19 22:52 Dose: 10 mg Documented by: Buspirone HCl (Buspar) 10 mg PO TID [facility] Last Admin: 05/12/19 22:51 Dose: 10 mg Documented by: Cholecalciferol (Vitamin D) 2,000 unit PO DAILY [facility] Last Admin: 05/12/19 09:48 Dose: 2,000 unit Documented by: Clonazepam (Klonopin) 2 mg PO QHS [facility] Last Admin: 05/12/19 22:54 Dose: 2 mg Documented by: Duloxetine HCl (Cymbalta) 60 mg PO BID [facility] Last Admin: 05/12/19 22:52 Dose: 60 mg Documented by: Enoxaparin Sodium (Lovenox) 40 mg SC DAILY [facility] Last Admin: 05/12/19 09:48 Dose: 40 mg Documented by: Ergocalciferol (Vitamin D) 50,000 unit PO [place]@0800 [facility] Last Admin: 05/07/19 10:14 Dose: 50,000 unit Documented by: Hydrochlorothiazide (Hctz) 25 mg PO DAILY [facility] Last Admin: 05/12/19 09:48 Dose: 25 mg Documented by: Sodium Chloride () 250 mls @ 15 mls/hr IV .[id number] PRN PRN Reason: Saline Flush Last Infusion: 05/12/19 10:23 Dose: Infused Documented by: Pantoprazole Sodium 40 mg/ (Sodium Chloride) 110 mls @ 330 mls/hr IV Q24 [facility] Last Infusion: 05/12/19 10:08 Dose: Infused Documented by: Sodium Chloride () 1,000 mls @ 75 mls/hr IV .[id number] [facility] Last Admin: 05/12/19 17:32 Dose: 75 mls/hr Documented by: Latanoprost (Xalatan Opthalmic) 1 drop OPHTHALMIC QPM [facility] Last Admin: 05/12/19 22:51 Dose: 1 drop Documented by: Lisinopril (Zestril) 20 mg PO DAILY [facility] Last Admin: 05/12/19 09:50 Dose: 20 mg Documented by: Metoprolol Tartrate (Lopressor (Beta Carl)) 50 mg PO BID [facility] Last Admin: 05/12/19 22:52 Dose: 50 mg Documented by: Morphine Sulfate () 4 - 6 mg IV Q2H PRN PRN PRN Reason: Pain Score 6-10/10 Last Admin: 05/12/19 09:51 Dose: 4 mg Documented by: Ondansetron HCl (Zofran) 4 mg IV Q6H PRN PRN PRN Reason: NAUSEA/VOMITING Last Admin: 05/10/19 21:46 Dose: 4 mg Documented by: Oxycodone HCl (Oxyir) 5 - 10 mg PO Q4H PRN PRN PRN Reason: Pain Score 6-10/10 Last Admin: 05/12/19 07:06 Dose: 10 mg Documented by: Sodium Chloride () 10 - 40 ml IV UD PRN PRN Reason: SALINE FLUSH Last Admin: 05/12/19 09:51 Dose: 10 ml Documented by: Tamsulosin HCl (Flomax) 0.4 mg PO DAILY@1730 [facility] Last Admin: 05/12/19 17:32 Dose: 0.4 mg Documented by: Timolol Maleate (Timoptic) 1 drop OPHTHALMIC DAILY [facility] Last Admin: 05/12/19 09:49 Dose: 1 drop Documented by: Medical Necessity - Tobacco Use Smoking Status: Never smoker Tobacco Use: Non-smoker Assessment/Plan All Active Problems (Last Reviewed 04/18/19 @ 13:46 by Sylvie Benitez) Rectal bleeding (Acute) RUQ abdominal pain (Acute) Ileus. Patient otherwise comfortable. I have vigorously encouraged ambulation for the patient.
[2019-05-13] MEDS: busPIRone 5 MG Tablet 10 MG PO ×3 (05:56→21:09)
[2019-05-13] MEDS: 0.9% Normal Saline 1,000 ML 75 ML IV ×2 (05:56→17:49)
[2019-05-13] MEDS: Enoxaparin 40 MG/0.4 ML Syringe SC (09:53)
[2019-05-13] MEDS: hydroCHLOROthiazide 25 MG Tablet PO (09:53)
[2019-05-13] MEDS: DULoxetine Hcl 60 MG Capsule PO ×2 (09:53→21:09)
[2019-05-13] MEDS: Timolol 0.25% 5ML OPTH.BTL 1 DRP OPHTHALMIC (09:54)
[2019-05-13] MEDS: Lisinopril 20 MG Tablet PO (09:56)
[2019-05-13] MEDS: Metoprolol Tartrate 50 MG Tablet PO ×2 (09:57→21:08)
[2019-05-13] MEDS: Tamsulosin HCl 0.4 MG Capsule PO (14:44)
[2019-05-13] MEDS: Latanoprost 0.005% 1 Bottle 1 DRP OPHTHALMIC (21:07)
[2019-05-13] MEDS: clonazePAM 1 MG Tablet 2 MG PO (21:07)
[2019-05-13] MEDS: Atorvastatin Calcium 10 MG Tablet PO (21:10)
[2019-05-13] MEDS: amLODIPine 10 MG Tablet PO (21:11)
--- NOTE | 2019-05-13 22:52 | NURSING ---
PATIENT STATED PASSED LOTS OF GAS; HAVING SMALL BOWEL MOVEMENTS; UP WALKING IN HALLS
[2019-05-14] VITALS (7 sets, daily range): BP systolic 124–146; BP diastolic 75–78; PULSE 68–85; RESP 16; TEMP 36.3–37.1; O2SAT 96–99
[2019-05-14] MEDS: busPIRone 5 MG Tablet 10 MG PO ×3 (06:13→22:44)
[2019-05-14] MEDS: 0.9% Normal Saline 1,000 ML 75 ML IV (06:16)
[2019-05-14 06:43] LABS: Absolute Lymphocyte Count 0.79 X10^3/uL (0.83-4.51); Absolute Neutrophil Count 3.7 X10^3/uL (2.0-7.7); Basophil# 0.02 X10^3/uL; Basophil% 0.4 % (0-1); Eosinophil# 0.15 X10^3/uL; Eosinophils% 2.9 % (0-5); Hematocrit 31.2 % (40-54); Hemoglobin 9.4 g/dL (13.0-16.5); Lymphocyte # 0.79 X10^3/ul (4.0); Lymphocyte % 15.4 % (19-41); Mean Corp Hgb Conc 30.1 g/dL (32-36); Mean Corpuscular Hgb 24.7 pg (27.0-32.0); Mean Corpuscular Volume 81.9 fL (80-94); Mean Platelet Vol. 10.9 fl (6.2-12.0); Monocyte# 0.48 X10^3/uL; Monocyte% 9.3 % (0-10); NRBC Flagged by Analyzer 0 % (0-5); Neutrophil # 3.69 X10^3/uL (2.7-7.7); Neutrophil % 71.8 % (47-70); Platelet Count 295 K/mm3 (150-450); RBC Distribution Width CV 16.7 % (11.6-14.6); RBC Distribution Width SD 49.7 fl (35.1-43.9); Red Blood Count 3.81 M/mm3 (4.6-6.2); White Blood Count 5.1 K/mm3 (4.4-11.0)
[2019-05-14 07:06] LABS: Anion Gap 8 (5-15); BUN 9 mg/dL (7-18); BUN/Creat Ratio 10.2 RATIO (10-20); Calcium,Total 8.2 mg/dL (8.5-10.1); Chloride 107 mmol/L (98-107); Creatinine, Serum 0.88 mg/dL (0.70-1.30); EST Glomerular Filtration Rate 93 mL/min (>60); Est Glom Filt Rate - Afr Amer 112 mL/min (>60); Estimated Creatinine Clearance 85.92 ml/min; Glucose 91 mg/dL (74-106); Potassium 3.4 mmol/L (3.5-5.1); Sodium Level 140 mmol/L (136-145)
--- NOTE | 2019-05-14 09:02 | PN.SURG_ITS ---
Patient Problems: Active and Suspected Problems (Last Reviewed 04/18/19 @ 13:46 by Sylvie Benitez) Rectal bleeding (Acute) RUQ abdominal pain (Acute) Subjective: Good progress, stool and flatus last night No abdominal pain currently - Physical Exam Vitals/I&O's: Vital Signs Temp Pulse Resp BP Pulse Ox 97.9 F 75 16 146/77 H 96 05/14/19 03:00 05/14/19 03:00 05/14/19 03:00 05/14/19 03:00 05/14/19 07:14 Oxygen Flow Rate (L/min) 2 Oxygen Delivery Method Room Air Weight: 302 lb 8.011 oz Body Mass Index (BMI) 44.6 Intake and Output for Last 24 Hours 05/12/19 05/13/19 05/14/19 23:59 23:59 23:59 Intake Total 2141.25 / 2191.25 2052.50 / 2052.50 958.75 / 958.75 Output Total 1700 / 2100 1250 / 1250 Balance 441.25 / 91.25 802.50 / 802.50 958.75 / 958.75 Abdomen: Bowel Sounds Present, Soft, Non Tender - wound vac in place Laboratory Results 05/14/19 06:05: WBC 5.1, RBC 3.81 L, Hgb 9.4 L, Hct 31.2 L, MCV 81.9, MCH 24.7 L , MCHC 30.1 L, RDW Std Deviation 49.7 H, RDW Coeff of Devan 16.7 H, Plt Count 295, MPV 10.9, Immature Gran % (Auto) 0.200, Neut % (Auto) 71.8 H, Lymph % (Auto) 15.4 L, [place] % (Auto) 9.3, Eos % (Auto) 2.9, Baso % (Auto) 0.4, Absolute Neuts (auto) 3.7, Absolute Lymphs (auto) 0.79 L, Nucleated RBC % 0 05/14/19 06:05: Sodium 140, Potassium 3.4 L, Chloride 107, Carbon Dioxide 25.0, Anion Gap 8, BUN 9, Creatinine 0.88, Estim Creat Clear Calc 85.92, Est GFR (MDRD) Af Amer 112, Est GFR (MDRD) Non-Af 93, BUN/Creatinine Ratio 10.2, Glucose 91, Calcium 8.2 L Current Medications Acetaminophen (Tylenol) 650 mg PO Q6H PRN PRN PRN Reason: Pain 1-10 or Fever Last Admin: 05/13/19 10:31 Dose: 650 mg Documented by: Amlodipine Besylate (Norvasc) 10 mg PO QHS [facility] Last Admin: 05/13/19 21:11 Dose: 10 mg Documented by: Atorvastatin Calcium (Lipitor) 10 mg PO HS [facility] Last Admin: 05/13/19 21:10 Dose: 10 mg Documented by: Buspirone HCl (Buspar) 10 mg PO TID [facility] Last Admin: 05/14/19 06:13 Dose: 10 mg Documented by: Cholecalciferol (Vitamin D) 2,000 unit PO DAILY [facility] Last Admin: 05/13/19 09:57 Dose: 2,000 unit Documented by: Clonazepam (Klonopin) 2 mg PO QHS [facility] Last Admin: 05/13/19 21:07 Dose: 2 mg Documented by: Duloxetine HCl (Cymbalta) 60 mg PO BID [facility] Last Admin: 05/13/19 21:09 Dose: 60 mg Documented by: Enoxaparin Sodium (Lovenox) 40 mg SC DAILY [facility] Last Admin: 05/13/19 09:53 Dose: 40 mg Documented by: Ergocalciferol (Vitamin D) 50,000 unit PO [place]@0800 [facility] Last Admin: 05/07/19 10:14 Dose: 50,000 unit Documented by: Hydrochlorothiazide (Hctz) 25 mg PO DAILY [facility] Last Admin: 05/13/19 09:53 Dose: 25 mg Documented by: Sodium Chloride () 250 mls @ 15 mls/hr IV .[id number] PRN PRN Reason: Saline Flush Last Infusion: 05/12/19 10:23 Dose: Infused Documented by: Potassium Chloride () 10 meq in 100 mls @ 100 mls/hr IV BOLUS Q1H [facility] Stop: 05/14/19 11:59 Latanoprost (Xalatan Opthalmic) 1 drop OPHTHALMIC QPM [facility] Last Admin: 05/13/19 21:07 Dose: 1 drop Documented by: Lisinopril (Zestril) 20 mg PO DAILY [facility] Last Admin: 05/13/19 09:56 Dose: 20 mg Documented by: Metoprolol Tartrate (Lopressor (Beta Carl)) 50 mg PO BID [facility] Last Admin: 05/13/19 21:08 Dose: 50 mg Documented by: Morphine Sulfate () 4 - 6 mg IV Q2H PRN PRN PRN Reason: Pain Score 6-10/10 Last Admin: 05/12/19 09:51 Dose: 4 mg Documented by: Ondansetron HCl (Zofran) 4 mg IV Q6H PRN PRN PRN Reason: NAUSEA/VOMITING Last Admin: 05/10/19 21:46 Dose: 4 mg Documented by: Oxycodone HCl (Oxyir) 5 - 10 mg PO Q4H PRN PRN PRN Reason: Pain Score 6-10/10 Last Admin: 05/12/19 07:06 Dose: 10 mg Documented by: Sodium Chloride () 10 - 40 ml IV UD PRN PRN Reason: SALINE FLUSH Last Admin: 05/12/19 09:51 Dose: 10 ml Documented by: Tamsulosin HCl (Flomax) 0.4 mg PO DAILY@1730 [facility] Last Admin: 05/13/19 14:44 Dose: 0.4 mg Documented by: Timolol Maleate (Timoptic) 1 drop OPHTHALMIC DAILY [facility] Last Admin: 05/13/19 09:54 Dose: 1 drop Documented by: Medical Necessity - Tobacco Use Smoking Status: Never smoker Tobacco Use: Non-smoker Assessment/Plan All Active Problems (Last Reviewed 04/18/19 @ 13:46 by Sylvie Benitez) Rectal bleeding (Acute) RUQ abdominal pain (Acute) Will start clears and advance as tolerated Anticipate wound vac change tomorrow and likely discharge
[2019-05-14] MEDS: Potassium Chloride 10mEq/100mL 10 MEQ/100 ML IV.SOLN. 100 MEQ IV BOLUS (09:35)
[2019-05-14] MEDS: Latanoprost 0.005% 1 Bottle 1 DRP OPHTHALMIC (09:36)
[2019-05-14] MEDS: Enoxaparin 40 MG/0.4 ML Syringe SC (09:38)
[2019-05-14] MEDS: Lisinopril 20 MG Tablet PO (09:39)
[2019-05-14] MEDS: DULoxetine Hcl 60 MG Capsule PO ×2 (09:39→22:46)
[2019-05-14] MEDS: hydroCHLOROthiazide 25 MG Tablet PO (09:40)
[2019-05-14] MEDS: Metoprolol Tartrate 50 MG Tablet PO ×2 (09:40→22:46)
[2019-05-14] MEDS: Timolol 0.25% 5ML OPTH.BTL 1 DRP OPHTHALMIC (09:44)
[2019-05-14] MEDS: Acetaminophen 325 MG Tablet 650 MG PO ×2 (09:52→16:46)
[2019-05-14] MEDS: Pantoprazole Sodium 40 MG Tablet PO (09:54)
[2019-05-14] MEDS: Potassium Chloride 10mEq/100mL 10 MEQ/100 ML IV.SOLN. IV BOLUS ×2 (10:43→11:47)
[2019-05-14] MEDS: Tamsulosin HCl 0.4 MG Capsule PO (14:53)
--- NOTE | 2019-05-14 20:14 | NURSING ---
WALKED IN [place]RAMER GAIT STEADY
[2019-05-14] MEDS: clonazePAM 1 MG Tablet 2 MG PO (22:44)
[2019-05-14] MEDS: Atorvastatin Calcium 10 MG Tablet PO (22:45)
[2019-05-14] MEDS: amLODIPine 10 MG Tablet PO (22:46)
[2019-05-15] VITALS (7 sets, daily range): BP systolic 137–149; BP diastolic 77–82; PULSE 64–91; RESP 16–18; TEMP 36.7–36.9; O2SAT 90–100
[2019-05-15] MEDS: Acetaminophen 325 MG Tablet 650 MG PO ×4 (00:53→22:00)
[2019-05-15] MEDS: busPIRone 5 MG Tablet 10 MG PO ×3 (05:52→22:01)
--- NOTE | 2019-05-15 08:42 | PN.SURG_ITS ---
Patient Problems: Active and Suspected Problems (Last Reviewed 04/18/19 @ 13:46 by Sylvie Benitez) Rectal bleeding (Acute) RUQ abdominal pain (Acute) Subjective: Patient is doing well today. He reports several bowel movements that were liquid as well as passing gas several times. He is not having any severe abdominal pain or nausea or vomiting. - Physical Exam Vitals/I&O's: Vital Signs Temp Pulse Resp BP Pulse Ox 98.2 F 76 16 145/77 H 90 05/15/19 05:54 05/15/19 05:54 05/15/19 05:54 05/15/19 05:54 05/15/19 07:09 Oxygen Flow Rate (L/min) 2 Oxygen Delivery Method Room Air Weight: 302 lb 8.011 oz Body Mass Index (BMI) 44.6 Intake and Output for Last 24 Hours 05/13/19 05/14/19 05/15/19 23:59 23:59 23:59 Intake Total 2052.50 / 2052.50 1599.42 / 1599.42 Output Total 1250 / 1250 Balance 802.50 / 802.50 1599.42 / 1599.42 General: Alert, Oriented x3 Lungs: Normal air movement Cardiovascular: Regular rate, Regular Rhythm Abdomen: Soft, Non-Distended, Tender - Mild tenderness Current Medications Acetaminophen (Tylenol) 650 mg PO Q6H PRN PRN PRN Reason: Pain 1-10/10 or Fever Last Admin: 05/15/19 08:14 Dose: 650 mg Documented by: Amlodipine Besylate (Norvasc) 10 mg PO QHS [facility] Last Admin: 05/14/19 22:46 Dose: 10 mg Documented by: Atorvastatin Calcium (Lipitor) 10 mg PO HS [facility] Last Admin: 05/14/19 22:45 Dose: 10 mg Documented by: Buspirone HCl (Buspar) 10 mg PO TID [facility] Last Admin: 05/15/19 05:52 Dose: 10 mg Documented by: Cholecalciferol (Vitamin D) 2,000 unit PO DAILY [facility] Last Admin: 05/14/19 09:36 Dose: 2,000 unit Documented by: Clonazepam (Klonopin) 2 mg PO QHS [facility] Last Admin: 05/14/19 22:44 Dose: 2 mg Documented by: Duloxetine HCl (Cymbalta) 60 mg PO BID [facility] Last Admin: 05/14/19 22:46 Dose: 60 mg Documented by: Enoxaparin Sodium (Lovenox) 40 mg SC DAILY [facility] Last Admin: 05/14/19 09:38 Dose: 40 mg Documented by: Ergocalciferol (Vitamin D) 50,000 unit PO [place]@0800 [facility] Last Admin: 05/14/19 09:39 Dose: 50,000 unit Documented by: Hydrochlorothiazide (Hctz) 25 mg PO DAILY [facility] Last Admin: 05/14/19 09:40 Dose: 25 mg Documented by: Sodium Chloride () 250 mls @ 15 mls/hr IV .[id number] PRN PRN Reason: Saline Flush Last Infusion: 05/12/19 10:23 Dose: Infused Documented by: Latanoprost (Xalatan Opthalmic) 1 drop OPHTHALMIC QPM [facility] Last Admin: 05/14/19 09:36 Dose: 1 drop Documented by: Lisinopril (Zestril) 20 mg PO DAILY [facility] Last Admin: 05/14/19 09:39 Dose: 20 mg Documented by: Metoprolol Tartrate (Lopressor (Beta Carl)) 50 mg PO BID [facility] Last Admin: 05/14/19 22:46 Dose: 50 mg Documented by: Ondansetron HCl (Zofran) 4 mg IV Q6H PRN PRN PRN Reason: NAUSEA/VOMITING Last Admin: 05/10/19 21:46 Dose: 4 mg Documented by: Oxycodone HCl (Oxyir) 5 - 10 mg PO Q4H PRN PRN PRN Reason: Pain Score 6-10/10 Last Admin: 05/12/19 07:06 Dose: 10 mg Documented by: Pantoprazole Sodium (Protonix) 40 mg PO DAILY [facility] Last Admin: 05/14/19 09:54 Dose: 40 mg Documented by: Sodium Chloride () 10 - 40 ml IV UD PRN PRN Reason: SALINE FLUSH Last Admin: 05/12/19 09:51 Dose: 10 ml Documented by: Tamsulosin HCl (Flomax) 0.4 mg PO DAILY@1730 [facility] Last Admin: 05/14/19 14:53 Dose: 0.4 mg Documented by: Timolol Maleate (Timoptic) 1 drop OPHTHALMIC DAILY [facility] Last Admin: 05/14/19 09:44 Dose: 1 drop Documented by: Medical Necessity - Tobacco Use Smoking Status: Never smoker Tobacco Use: Non-smoker Assessment/Plan All Active Problems (Last Reviewed 04/18/19 @ 13:46 by Sylvie Benitez) Rectal bleeding (Acute) RUQ abdominal pain (Acute) 63-year-old male status post right hemicolectomy for colon cancer and subsequent takeback for wound dehiscence 1. Patient reports he is doing well today. He has had several bowel movements today that were liquid and he has been passing gas. He tolerated full liquid diets to a small extent yesterday but he is tolerating water. He has no nausea or vomiting. His wound VAC is in place and not having significant drainage. His skin is clean dry and intact with no erythema. His abdomen seems soft and nondistended. I anticipate starting him on a regular diet later today or tomorrow and hopeful discharge today or tomorrow Domingo Russo MD Pager: [facility] [address] [place] [address], [address] [place] [phone] Office:
--- NOTE | 2019-05-15 09:35 | NURSING ---
wound photo: abdomen
--- NOTE | 2019-05-15 09:37 | CASEMGMT ---
ANDREEA CM in to discuss [facility] options with patient. Patient provided list previously and would like [facility]. RN CM sent referral to [facility] and they are able to accept the patient. RN CM updated the patient regarding acceptance. CM will continue to follow this patient and plan for a safe discharge.
--- NOTE | 2019-05-15 09:51 | PCM.DC.GS ---
Discharge Diet: - - Full Liquid Discharge Activity: May not drive while taking narcotic pain medications., May Shower May shower in (days): 1 Lifting Restrictions: 10 pounds Call your doctor if your incision/area has: Continuous Slow Oozing, Sudden Increased Bleeding, Increased Pain/ Swelling, Increased Redness, Foul Smelling Discharge, Swelling at the incision site Call your doctor if you observe: Fever of 101 or Higher Suture Line Care: Avoid Pulling/Pushing, Avoid Pinching/Bending Change Dressing in (Days):: 1 - If there is no drainage from incision okay to leave incision open to air Additional Instructions: Okay to take ibuprofen 400-600 mg PO q6hr PRN along with the Percocet. Avoid Tylenol since there is already Tylenol in the Percocet. Take all pain meds with food. Percocet can cause constipation recommend taking daily stool softener (i.e. Colace/docusate) while taking the pain meds. Allergies/Adverse Reactions: Allergies No Known Allergies Allergy (Verified 05/02/19 08:09) Medications to take at Discharge acetaminophen 500 mg tablet 500 mg PO Q4H PRN 03/14/19 amlodipine 10 mg tablet 10 mg PO QHS 03/14/19 buspirone 10 mg tablet 10 mg PO TID 03/14/19 cholecalciferol (vitamin D3) 50 mcg (2,000 unit) capsule 2,000 unit PO DAILY 03/14/19 clonazepam 2 mg tablet 2 mg PO QHS 03/14/19 duloxetine 60 mg capsule,delayed release 60 mg PO BID cap 03/14/19 ergocalciferol (vitamin D2) 50,000 unit capsule 50,000 unit PO QWEEK 03/14/19 ferrous sulfate 325 mg (65 mg iron) tablet 325 mg PO DAILY 03/14/19 latanoprost 0.005 % eye drops 1 drp OPHTHALMIC QPM 03/14/19 lisinopril 20 mg tablet 20 mg PO DAILY 03/14/19 lovastatin 40 mg tablet 40 mg PO QHS 03/14/19 metoprolol tartrate 50 mg tablet 50 mg PO BID 03/14/19 omega-3 fatty acids 1,000 mg capsule 1,000 mg PO DAILY 03/14/19 omeprazole 40 mg capsule,delayed release 40 mg PO DAILY #60 cap 03/14/19 timolol 0.5 % eye drops 1 drp OPHTHALMIC DAILY 03/14/19 Glucos Sul 2Kcl/MSM/Chond/C/Mn [Glucosamine Chondroitin Cap] 1 ea PO BID 03/29/19 Sucralfate [Carafate] 1 gm PO 4X/DAY 03/29/19 Ubidecarenone [Co Q-10] 200 mg PO DAILY 03/29/19 aspirin 81 mg tablet,delayed release 81 mg PO DAILY 04/18/19 ergocalciferol (vitamin D2) 50,000 unit capsule 50,000 unit PO QWEEK 04/18/19 hydrochlorothiazide 25 mg tablet 25 mg PO DAILY 04/18/19 metoprolol succinate 50 mg tablet,extended release 24 hr 50 mg PO BID 04/18/19 Oxycodone HCl/Acetaminophen [Percocet 5/325] 1 - 2 tab PO Q6H PRN PRN 6 Days #30 tab 05/06/19 Acetaminophen [Tylenol Tablet] 650 mg PO Q6H PRN PRN tablet 05/15/19 The following prescriptions were given: Oxycodone HCl/Acetaminophen [Percocet 5/325] 1 - 2 tab PO Q6H PRN PRN 6 Days #30 tab PRN Reason: Pain Transmission Status: Received by [facility] Primary Care Physician: John Villalta [Primary Care Provider] - Test Results: Test results from this visit will be discussed in further detail at your follow-up appointment, if applicable. Please Follow Up With: Domingo Russo MD When: Call the office for follow up 1 week [phone] Proposed Discharge Date: 05/15/19
--- NOTE | 2019-05-15 09:56 | DS.PCM_ITS ---
<Domingo Russo - Last Filed: 05/15/19 09:56> Discharge Date and Diagnosis - Problem List Patient Problems: Active and Suspected Problems (Last Reviewed 04/18/19 @ 13:46 by Sylvie Benitez) Colon cancer (Acute) Rectal bleeding (Acute) RUQ abdominal pain (Acute) Date of Admission: 05/02/19 Date of Discharge: 05/15/19 - Primary Discharge Diagnosis Active and Suspected Problems (Last Reviewed 04/18/19 @ 13:46 by Sylvie Benitez) Colon cancer (Acute) Rectal bleeding (Acute) RUQ abdominal pain (Acute) postoperative ileus hypokalemia fascial dehiscence Hospital Course and Treatment Imaging Results: Clinical Impression(s) from Imaging Studies Abdomen/Pelvis CT 05/02/19 10:26 IMPRESSION: Soft tissue mass with the wall thickening along the descending colon adjacent to the hepatic flexure. Bilateral renal cysts. Electronically Signed: Isaac Finnegan, at 14:37 EST , Service support , KUB X-Ray 05/07/19 06:54 IMPRESSION: Probable postoperative ileus. Electronically Signed: Everton Hamilton MD (Brooks) at 12:13 EST , Service support , Abdomen/Pelvis CT 05/10/19 07:00 IMPRESSION: Status post right hemicolectomy with postoperative changes seen in the region of the right lower quadrant and pelvis included with prior resection. Fluid-filled slightly distended multiple small bowel loops. Fluid-filled markedly distended stomach. Small amount of ascites. Electronically Signed: Isaac Finnegan, at 12:20 EST , Service support , Abdomen/Pelvis CT 05/11/19 04:21 IMPRESSION: Status post right hemicolectomy with persistent fluid-filled loops of small bowel throughout the abdomen likely due to underlying ileus. Incisional scar within the midline abdomen without evidence for seroma or abscess formation. Interval increased herniation of abdominal fat deep to the incision site along the more superior aspect of the incision with defect measuring approximately 3.5 cm in transverse dimension series 2 images 65. There is no herniation of bowel loops. Bilateral renal cysts. Right adrenal gland adenoma. Electronically Signed: Elmer Wilder, at 5:19 EST Tel , Service support , KUB X-Ray 05/12/19 05:55 IMPRESSION: Persistent gaseous distention of the small bowel loops. There has been essentially no change. Electronically Signed: Isaac Gavinhuang, at 11:02 EST , Service support , Consultations 05/11/19 08:01 Consult: Onc/Wound/health and safety manager Routine Comment: Reason for Consult:: place wound vac tomorrow Operations: colectomy, - - closure of fascia Summary of Care Provided: The patient is a 63 year old M who presented for EGD and colonoscopy due to blood in the stool. Patient was found to have a large mass at the hepatic flexure. He was taken the following day after CT scan was performed for laparotomy and right hemicolectomy. He had a postoperative ileus following the surgery and NG was unable to be placed. The following night he had wound dehiscence and was taken that morning for re-closure of the fascia with retention sutures and wound VAC placement. Following this operation he had another postoperative ileus complicated by hypokalemia. Once he was passing gas and having less abdominal pain and bowel sounds resumed he was started on a clear liquid diet and advance to full liquids. He will be discharged home on a full liquid diet and follow-up with me in 1 week. Home health was recruited for wound VAC changes at home. Patient Problems: Active and Suspected Problems (Last Reviewed 04/18/19 @ 13:46 by Sylvie Benitez) Colon cancer (Acute) Rectal bleeding (Acute) RUQ abdominal pain (Acute) - Physical Exam Vitals/I&O's: Vital Signs Temp Pulse Resp BP Pulse Ox 98.2 F 76 16 145/77 H 90 05/15/19 05:54 05/15/19 05:54 05/15/19 05:54 05/15/19 05:54 05/15/19 07:09 Oxygen Flow Rate (L/min) 2 Oxygen Delivery Method Room Air Weight: 302 lb 8.011 oz Body Mass Index (BMI) 44.6 Intake and Output for Last 24 Hours 05/13/19 05/14/19 05/15/19 23:59 23:59 23:59 Intake Total 2052.50 / 2052.50 1599.42 / 1599.42 Output Total 1250 / 1250 Balance 802.50 / 802.50 1599.42 / 1599.42 Current Medications Acetaminophen (Tylenol) 650 mg PO Q6H PRN PRN PRN Reason: Pain 1-03/02 or Fever Last Admin: 05/15/19 08:14 Dose: 650 mg Documented by: Amlodipine Besylate (Norvasc) 10 mg PO QHS [facility] Last Admin: 05/14/19 22:46 Dose: 10 mg Documented by: Atorvastatin Calcium (Lipitor) 10 mg PO HS [facility] Last Admin: 05/14/19 22:45 Dose: 10 mg Documented by: Buspirone HCl (Buspar) 10 mg PO TID [facility] Last Admin: 05/15/19 05:52 Dose: 10 mg Documented by: Cholecalciferol (Vitamin D) 2,000 unit PO DAILY [facility] Last Admin: 05/14/19 09:36 Dose: 2,000 unit Documented by: Clonazepam (Klonopin) 2 mg PO QHS [facility] Last Admin: 05/14/19 22:44 Dose: 2 mg Documented by: Duloxetine HCl (Cymbalta) 60 mg PO BID [facility] Last Admin: 05/14/19 22:46 Dose: 60 mg Documented by: Enoxaparin Sodium (Lovenox) 40 mg SC DAILY [facility] Last Admin: 05/14/19 09:38 Dose: 40 mg Documented by: Ergocalciferol (Vitamin D) 50,000 unit PO [place]@0800 [facility] Last Admin: 05/14/19 09:39 Dose: 50,000 unit Documented by: Hydrochlorothiazide (Hctz) 25 mg PO DAILY [facility] Last Admin: 05/14/19 09:40 Dose: 25 mg Documented by: Sodium Chloride () 250 mls @ 15 mls/hr IV .[id number] PRN PRN Reason: Saline Flush Last Infusion: 05/12/19 10:23 Dose: Infused Documented by: Latanoprost (Xalatan Opthalmic) 1 drop OPHTHALMIC QPM [facility] Last Admin: 05/14/19 09:36 Dose: 1 drop Documented by: Lisinopril (Zestril) 20 mg PO DAILY [facility] Last Admin: 05/14/19 09:39 Dose: 20 mg Documented by: Metoprolol Tartrate (Lopressor (Beta Carl)) 50 mg PO BID [facility] Last Admin: 05/14/19 22:46 Dose: 50 mg Documented by: Ondansetron HCl (Zofran) 4 mg IV Q6H PRN PRN PRN Reason: NAUSEA/VOMITING Last Admin: 05/10/19 21:46 Dose: 4 mg Documented by: Oxycodone HCl (Oxyir) 5 - 10 mg PO Q4H PRN PRN PRN Reason: Pain Score 6-10/10 Last Admin: 05/12/19 07:06 Dose: 10 mg Documented by: Pantoprazole Sodium (Protonix) 40 mg PO DAILY [facility] Last Admin: 05/14/19 09:54 Dose: 40 mg Documented by: Sodium Chloride () 10 - 40 ml IV UD PRN PRN Reason: SALINE FLUSH Last Admin: 05/12/19 09:51 Dose: 10 ml Documented by: Tamsulosin HCl (Flomax) 0.4 mg PO DAILY@1730 [facility] Last Admin: 05/14/19 14:53 Dose: 0.4 mg Documented by: Timolol Maleate (Timoptic) 1 drop OPHTHALMIC DAILY [facility] Last Admin: 05/14/19 09:44 Dose: 1 drop Documented by: Discharge Diet: - - Full Liquid Discharge Activity: May not drive while taking narcotic pain medications., May Shower May shower in (days): 1 Call your doctor if your incision/area has: Continuous Slow Oozing, Sudden Increased Bleeding, Increased Pain/ Swelling, Increased Redness, Foul Smelling Discharge, Swelling at the incision site Call your doctor if you observe: Fever of 101 or Higher Suture Line Care: Avoid Pulling/Pushing, Avoid Pinching/Bending Change Dressing in (Days):: 1 - If there is no drainage from incision okay to le ave incision open to air Home Medications: Medications to take at Discharge acetaminophen 500 mg tablet 500 mg PO Q4H PRN 10/22/19 amlodipine 10 mg tablet 10 mg PO QHS 03/14/19 buspirone 10 mg tablet 10 mg PO TID 03/14/19 cholecalciferol (vitamin D3) 50 mcg (2,000 unit) capsule 2,000 unit PO DAILY 03/14/19 clonazepam 2 mg tablet 2 mg PO QHS 03/14/19 duloxetine 60 mg capsule,delayed release 60 mg PO BID cap 03/14/19 ergocalciferol (vitamin D2) 50,000 unit capsule 50,000 unit PO QWEEK 03/14/19 ferrous sulfate 325 mg (65 mg iron) tablet 325 mg PO DAILY 03/14/19 latanoprost 0.005 % eye drops 1 drp OPHTHALMIC QPM 03/14/19 lisinopril 20 mg tablet 20 mg PO DAILY 03/14/19 lovastatin 40 mg tablet 40 mg PO QHS 03/14/19 metoprolol tartrate 50 mg tablet 50 mg PO BID 03/14/19 omega-3 fatty acids 1,000 mg capsule 1,000 mg PO DAILY 03/14/19 omeprazole 40 mg capsule,delayed release 40 mg PO DAILY #60 cap 03/14/19 timolol 0.5 % eye drops 1 drp OPHTHALMIC DAILY 03/14/19 Glucos Sul 2Kcl/MSM/Chond/C/Mn [Glucosamine Chondroitin Cap] 1 ea PO BID 03/29/19 Sucralfate [Carafate] 1 gm PO 4X/DAY 03/29/19 Ubidecarenone [Co Q-10] 200 mg PO DAILY 03/29/19 aspirin 81 mg tablet,delayed release 81 mg PO DAILY 04/18/19 ergocalciferol (vitamin D2) 50,000 unit capsule 50,000 unit PO QWEEK 04/18/19 hydrochlorothiazide 25 mg tablet 25 mg PO DAILY 04/18/19 metoprolol succinate 50 mg tablet,extended release 24 hr 50 mg PO BID 04/18/19 Oxycodone HCl/Acetaminophen [Percocet 5/325] 1 - 2 tab PO Q6H PRN PRN 6 Days #30 tab 05/06/19 Acetaminophen [Tylenol Tablet] 650 mg PO Q6H PRN PRN tab 05/15/19 Tamsulosin HCl [Flomax] 0.4 mg PO DAILY #30 cap 05/16/19 Following Prescrptions Were Given to Patient: Tamsulosin HCl [Flomax] 0.4 mg PO DAILY #30 cap Transmission Status: Pending to [id number] Oxycodone HCl/Acetaminophen [Percocet 5/325] 1 - 2 tab PO Q6H PRN PRN 6 Days #30 tab PRN Reason: Pain Transmission Status: Received by [facility] Primary Care Physician: John Villalta [Primary Care Provider] - Please Follow Up With: Domingo Russo MD When: Call the office for follow up 1 week [phone] Additional Instructions: Okay to take ibuprofen 400-600 mg PO q6hr PRN along with the Percocet. Avoid Tylenol since there is already Tylenol in the Percocet. Take all pain meds with food. Percocet can cause constipation recommend taking daily stool softener (i.e. Colace/docusate) while taking the pain meds. Medical Necessity - Tobacco Use Smoking Status: Never smoker Tobacco Use: Non-smoker Meaningful Use Info Meaningful Use Diagnoses (Choose all that apply): None applicable <Azul Colon - Last Filed: 05/16/19 07:10> Discharge Date and Diagnosis Date of Discharge: 05/16/19 - Primary Discharge Diagnosis Active and Suspected Problems (Last Reviewed 04/18/19 @ 13:46 by Sylvie Benitez) Colon cancer (Acute) Rectal bleeding (Acute) RUQ abdominal pain (Acute) Urinary retention Hospital Course and Treatment Consultations 05/11/19 08:01 Consult: Onc/Wound/health and safety manager Routine Comment: Reason for Consult:: place wound vac tomorrow Operations: colectomy, - Summary of Care Provided: Patient was placed on transitional diet at discharge - Physical Exam Vitals/I&O's: Vital Signs Temp Pulse Resp BP Pulse Ox 98.0 F 73 16 149/78 H 99 05/16/19 02:30 05/16/19 02:30 05/16/19 02:30 05/16/19 02:30 05/16/19 02:30 Oxygen Flow Rate (L/min) 2 Oxygen Delivery Method Room Air Weight: 302 lb 8.011 oz Body Mass Index (BMI) 44.6 Intake and Output for Last 24 Hours 05/14/19 05/15/19 05/16/19 23:59 23:59 23:59 Intake Total 1599.42 / 1599.42 790 / 990 500 / 500 Balance 1599.42 / 1599.42 790 / 990 500 / 500 Current Medications Acetaminophen (Tylenol) 650 mg PO Q6H PRN PRN PRN Reason: Pain 1-1010 or Fever Last Admin: 05/15/19 22:00 Dose: 650 mg Documented by: Amlodipine Besylate (Norvasc) 10 mg PO QHS [facility] Last Admin: 05/15/19 22:03 Dose: 10 mg Documented by: Atorvastatin Calcium (Lipitor) 10 mg PO HS [facility] Last Admin: 05/15/19 22:03 Dose: 10 mg Documented by: Buspirone HCl (Buspar) 10 mg PO TID [facility] Last Admin: 05/16/19 06:54 Dose: 10 mg Documented by: Cholecalciferol (Vitamin D) 2,000 unit PO DAILY [facility] Last Admin: 05/15/19 11:08 Dose: 2,000 unit Documented by: Clonazepam (Klonopin) 2 mg PO QHS [facility] Last Admin: 05/15/19 22:10 Dose: 2 mg Documented by: Duloxetine HCl (Cymbalta) 60 mg PO BID [facility] Last Admin: 05/15/19 22:02 Dose: 60 mg Documented by: Enoxaparin Sodium (Lovenox) 40 mg SC DAILY [facility] Last Admin: 05/15/19 11:06 Dose: 40 mg Documented by: Ergocalciferol (Vitamin D) 50,000 unit PO [place]@0800 [facility] Last Admin: 05/14/19 09:39 Dose: 50,000 unit Documented by: Hydrochlorothiazide (Hctz) 25 mg PO DAILY [facility] Last Admin: 05/15/19 11:06 Dose: 25 mg Documented by: Sodium Chloride () 250 mls @ 15 mls/hr IV .[id number] PRN PRN Reason: Saline Flush Last Infusion: 05/12/19 10:23 Dose: Infused Documented by: Latanoprost (Xalatan Opthalmic) 1 drop OPHTHALMIC QPM [facility] Last Admin: 05/15/19 22:01 Dose: 1 drop Documented by: Lisinopril (Zestril) 20 mg PO DAILY [facility] Last Admin: 05/15/19 11:08 Dose: 20 mg Documented by: Metoprolol Tartrate (Lopressor (Beta Carl)) 50 mg PO BID [facility] Last Admin: 05/15/19 22:02 Dose: 50 mg Documented by: Ondansetron HCl (Zofran) 4 mg IV Q6H PRN PRN PRN Reason: NAUSEA/VOMITING Last Admin: 05/10/19 21:46 Dose: 4 mg Documented by: Oxycodone HCl (Oxyir) 5 - 10 mg PO Q4H PRN PRN PRN Reason: Pain Score 6-10/10 Last Admin: 05/12/19 07:06 Dose: 10 mg Documented by: Pantoprazole Sodium (Protonix) 40 mg PO DAILY [facility] Last Admin: 05/15/19 11:06 Dose: 40 mg Documented by: Sodium Chloride () 10 - 40 ml IV UD PRN PRN Reason: SALINE FLUSH Last Admin: 05/12/19 09:51 Dose: 10 ml Documented by: Tamsulosin HCl (Flomax) 0.4 mg PO DAILY@1730 [facility] Last Admin: 05/15/19 14:30 Dose: 0.4 mg Documented by: Timolol Maleate (Timoptic) 1 drop OPHTHALMIC DAILY [facility] Last Admin: 05/15/19 11:07 Dose: 1 drop Documented by: Discharge Diet: - - Transitional diet Disposition: Home with Home Health Patient Condition:: Good Medical Necessity - Tobacco Use Smoking Status: Never smoker Tobacco Use: Non-smoker Meaningful Use Info Meaningful Use Diagnoses (Choose all that apply): None applicable
[2019-05-15] MEDS: Enoxaparin 40 MG/0.4 ML Syringe SC (11:06)
[2019-05-15] MEDS: hydroCHLOROthiazide 25 MG Tablet PO (11:06)
[2019-05-15] MEDS: Metoprolol Tartrate 50 MG Tablet PO ×2 (11:06→22:02)
[2019-05-15] MEDS: Pantoprazole Sodium 40 MG Tablet PO (11:06)
[2019-05-15] MEDS: Timolol 0.25% 5ML OPTH.BTL 1 DRP OPHTHALMIC (11:07)
[2019-05-15] MEDS: Lisinopril 20 MG Tablet PO (11:08)
[2019-05-15] MEDS: DULoxetine Hcl 60 MG Capsule PO ×2 (14:30→22:02)
[2019-05-15] MEDS: Tamsulosin HCl 0.4 MG Capsule PO (14:30)
[2019-05-15] MEDS: Latanoprost 0.005% 1 Bottle 1 DRP OPHTHALMIC (22:01)
[2019-05-15] MEDS: amLODIPine 10 MG Tablet PO (22:03)
[2019-05-15] MEDS: Atorvastatin Calcium 10 MG Tablet PO (22:03)
[2019-05-15] MEDS: clonazePAM 1 MG Tablet 2 MG PO (22:10)
[2019-05-16 02:30] VITALS: BP 149/78; PULSE 73; RESP 16; TEMP 36.7; O2SAT 99
[2019-05-16] MEDS: busPIRone 5 MG Tablet 10 MG PO ×2 (06:54→13:47)
--- NOTE | 2019-05-16 07:04 | PCM.PN.SRG ---
Patient Problems: Active and Suspected Problems (Last Reviewed 04/18/19 @ 13:46 by Sylvie Benitez) Colon cancer (Acute) Rectal bleeding (Acute) RUQ abdominal pain (Acute) Subjective: Patient tolerated full's having flatus, ambulating, pain is tolerable with Tylenol. - Physical Exam Vitals/I&O's: Vital Signs Temp Pulse Resp BP Pulse Ox 98.0 F 73 16 149/78 H 99 05/16/19 02:30 05/16/19 02:30 05/16/19 02:30 05/16/19 02:30 05/16/19 02:30 Oxygen Flow Rate (L/min) 2 Oxygen Delivery Method Room Air Weight: 302 lb 8.011 oz Body Mass Index (BMI) 44.6 Intake and Output for Last 24 Hours 05/14/19 05/15/19 05/16/19 23:59 23:59 23:59 Intake Total 1599.42 / 1599.42 790 / 990 500 / 500 Balance 1599.42 / 1599.42 790 / 990 500 / 500 General: Alert, Oriented x3, Cooperative, No apparent distress HEENT: Atraumatic Lungs: Normal air movement Cardiovascular: Regular rate Abdomen: Soft, Distended - Mild, Tender - Near incision clean dry and intact with wound VAC as well as retention sutures Neurological: Cranial nerves II-XII grossly intact Psych/Mental Status: Normal Affect Current Medications Acetaminophen (Tylenol) 650 mg PO Q6H PRN PRN PRN Reason: Pain 1-10/10 or Fever Last Admin: 05/15/19 22:00 Dose: 650 mg Documented by: Amlodipine Besylate (Norvasc) 10 mg PO QHS [facility] Last Admin: 05/15/19 22:03 Dose: 10 mg Documented by: Atorvastatin Calcium (Lipitor) 10 mg PO HS [facility] Last Admin: 05/15/19 22:03 Dose: 10 mg Documented by: Buspirone HCl (Buspar) 10 mg PO TID [facility] Last Admin: 05/16/19 06:54 Dose: 10 mg Documented by: Cholecalciferol (Vitamin D) 2,000 unit PO DAILY [facility] Last Admin: 05/15/19 11:08 Dose: 2,000 unit Documented by: Clonazepam (Klonopin) 2 mg PO QHS [facility] Last Admin: 05/15/19 22:10 Dose: 2 mg Documented by: Duloxetine HCl (Cymbalta) 60 mg PO BID [facility] Last Admin: 05/15/19 22:02 Dose: 60 mg Documented by: Enoxaparin Sodium (Lovenox) 40 mg SC DAILY [facility] Last Admin: 05/15/19 11:06 Dose: 40 mg Documented by: Ergocalciferol (Vitamin D) 50,000 unit PO [place]@0800 [facility] Last Admin: 05/14/19 09:39 Dose: 50,000 unit Documented by: Hydrochlorothiazide (Hctz) 25 mg PO DAILY [facility] Last Admin: 05/15/19 11:06 Dose: 25 mg Documented by: Sodium Chloride () 250 mls @ 15 mls/hr IV .[id number] PRN PRN Reason: Saline Flush Last Infusion: 05/12/19 10:23 Dose: Infused Documented by: Latanoprost (Xalatan Opthalmic) 1 drop OPHTHALMIC QPM [facility] Last Admin: 05/15/19 22:01 Dose: 1 drop Documented by: Lisinopril (Zestril) 20 mg PO DAILY [facility] Last Admin: 05/15/19 11:08 Dose: 20 mg Documented by: Metoprolol Tartrate (Lopressor (Beta Carl)) 50 mg PO BID [facility] Last Admin: 05/15/19 22:02 Dose: 50 mg Documented by: Ondansetron HCl (Zofran) 4 mg IV Q6H PRN PRN PRN Reason: NAUSEA/VOMITING Last Admin: 05/10/19 21:46 Dose: 4 mg Documented by: Oxycodone HCl (Oxyir) 5 - 10 mg PO Q4H PRN PRN PRN Reason: Pain Score 6-10/10 Last Admin: 05/12/19 07:06 Dose: 10 mg Documented by: Pantoprazole Sodium (Protonix) 40 mg PO DAILY [facility] Last Admin: 05/15/19 11:06 Dose: 40 mg Documented by: Sodium Chloride () 10 - 40 ml IV UD PRN PRN Reason: SALINE FLUSH Last Admin: 05/12/19 09:51 Dose: 10 ml Documented by: Tamsulosin HCl (Flomax) 0.4 mg PO DAILY@1730 [facility] Last Admin: 05/15/19 14:30 Dose: 0.4 mg Documented by: Timolol Maleate (Timoptic) 1 drop OPHTHALMIC DAILY [facility] Last Admin: 05/15/19 11:07 Dose: 1 drop Documented by: Medical Necessity - Tobacco Use Smoking Status: Never smoker Tobacco Use: Non-smoker Assessment/Plan All Active Problems (Last Reviewed 04/18/19 @ 13:46 by Sylvie Benitez) Colon cancer (Acute) Rectal bleeding (Acute) RUQ abdominal pain (Acute) 63-year-old male status post right hemicolectomy for colon cancer, takeback for fascial dehiscence 1. May advance patient to a transitional diet today. If patient tolerates may DC home with home health to assist with wound VAC. Patient will follow up with Dr. Russo in 1 week. Azul Colon M.D. Pager: [phone] [facility] [address] [place] [address], [address] [place] [id number] Office: [phone]
[2019-05-16 08:30] VITALS: BP 140/84; PULSE 81; RESP 18; TEMP 36.6; O2SAT 97
--- NOTE | 2019-05-16 09:09 | NURSING ---
Home VAC approved. proof of delivery form signed by patient. Pt tolerated breakfast well so will most likely be discharged home today. Home VAC in room.
[2019-05-16] MEDS: Enoxaparin 40 MG/0.4 ML Syringe SC (09:46)
[2019-05-16] MEDS: DULoxetine Hcl 60 MG Capsule PO (09:49)
[2019-05-16 09:50] VITALS: BP 140/84; PULSE 81
[2019-05-16] MEDS: Metoprolol Tartrate 50 MG Tablet PO (09:50)
[2019-05-16] MEDS: hydroCHLOROthiazide 25 MG Tablet PO (09:50)
[2019-05-16] MEDS: Pantoprazole Sodium 40 MG Tablet PO (09:50)
[2019-05-16] MEDS: Lisinopril 20 MG Tablet PO (09:51)
[2019-05-16] MEDS: Timolol 0.25% 5ML OPTH.BTL 1 DRP OPHTHALMIC (09:53)
[2019-05-16] MEDS: oxyCODONE 5 MG Tablet PO ×2 (10:15→13:50)
[2019-05-16 13:39] VITALS: BP 134/85; PULSE 102; RESP 18; TEMP 36.4; O2SAT 98
[2019-05-16 14:15] VITALS: BP 134/85; PULSE 102; RESP 18; TEMP 36.4; O2SAT 98
== END 2019-05-16 14:07 | disposition home health service (06) | DRG 330 ==
LOC: EN 10:32 → MS2 10:32 → MS3 05-04 14:26
PROVIDERS: Surgery; Admitting Provider Surgery; Family Provider Family Medicine; PCP Family Medicine; Referring Provider Family Medicine; Visit Provider Surgery
PROC: 0DJD8ZZ Inspection of Lower Intestinal Tract, Via Natural or Artificial Opening Endoscopic (ICD-10-PCS; CPT 45378; principal; 2019-05-02 08:55)
PROC: (CPT 44205; principal; 2019-05-03 13:30)
PROC: 0JQ80ZZ Repair Abdomen Subcutaneous Tissue and Fascia, Open Approach (ICD-10-PCS; principal; 2019-05-11 06:30)
DX: C18.3 Malignant neoplasm of hepatic flexure (principal); T81.32XA Disruption of internal operation (surgical) wound, not elsewhere classified, initial encounter; K56.7 Ileus, unspecified; Z53.31 Laparoscopic surgical procedure converted to open procedure; D12.5 Benign neoplasm of sigmoid colon; Y83.8 Other surgical procedures as the cause of abnormal reaction of the patient, or of later complication, without mention of misadventure at the time of the procedure; E87.6 Hypokalemia
CPT/HCPCS: 36415; 74018; 74176; 74177; 80048; 80053; 82378; 82962; 83735; 84100; 85025; 86850; 86900; 86901; 88305; 88307; 88309; 88331; 88341; 88342; 93005; 97803; 99251; J7030; J7040; J7050; J7120; Q9967; A4216; C1760; G0463; J2405

== ENCOUNTER → 2019-06-06 15:42 | Outpatient (CLI) | payer MEDICARE, SELFPAY ==
[2019-06-06 15:00] VITALS: BMI 41.5
--- NOTE | 2019-06-06 15:44 | RAD_ITS ---
STUDY: X-RAY CHEST REASON FOR EXAM: Male, 63 years old. COLON CA- STAGING. HX OF RECENT COLON SURGERY 1 MONTH AGO. TECHNIQUE: Frontal and lateral views of the chest. COMPARISON: CT chest May 19, 2010 FINDINGS: The lungs are clear and expanded. There is no demonstrated pleural abnormality. Normal size heart. Normal mediastinum and bryson. Normal visualized pulmonary arteries. Normal visualized aortic arch and descending thoracic aorta. Normal visualized thoracic spine. Normal visualized ribs, clavicles, and shoulders. There is no demonstrated abnormality of the visualized soft tissue structures of the upper abdomen. RAD/Chest PA and Lateral IMPRESSION: Normal x-ray examination of the chest. Electronically Signed: Carlos Mathis MD at 0:01 EST , Service support ,
== END ==
PROVIDERS: Family Provider Family Medicine; PCP Family Medicine; Referring Provider Internal Medicine Medical Oncology; Visit Provider Internal Medicine Medical Oncology
DX: C18.9 Malignant neoplasm of colon, unspecified (principal)
CPT/HCPCS: 71046

== ENCOUNTER → 2019-10-20 15:16 | Outpatient (CLI) | payer MEDICARE, SELFPAY ==
[2019-06-06 15:00] VITALS: BMI 41.5
[2019-10-20 16:57] LABS: AST(SGOT) 21 U/L (15-37); Alanine Aminotransfer ALT/SGPT 33 U/L (16-61); Anion Gap 8 (5-15); BUN 14 mg/dL (7-18); BUN/Creat Ratio 10.7 RATIO (10-20); Calcium,Total 8.9 mg/dL (8.5-10.1); Chloride 103 mmol/L (98-107); Creatinine, Serum 1.31 mg/dL (0.70-1.30); EST Glomerular Filtration Rate 59 mL/min (>60); Est Glom Filt Rate - Afr Amer 71 mL/min (>60); Glucose 115 mg/dL (74-106); Potassium 3.4 mmol/L (3.5-5.1); Sodium Level 139 mmol/L (136-145)
[2019-10-20 17:03] LABS: Vitamin D,25 Hydroxy 74.7 ng/mL
== END ==
PROVIDERS: PCP Family Medicine; Visit Provider Internal Medicine Endocrinology, Diabetes & Metabolism
DX: E29.1 Testicular hypofunction (principal); E55.9 Vitamin D deficiency, unspecified
CPT/HCPCS: 36415; 80048; 82306; 84403; 84450; 84460

== ENCOUNTER → 2019-11-15 12:23 | Outpatient (CLI) | payer MEDICARE, SELFPAY ==
[2019-06-06 15:00] VITALS: BMI 41.5
--- NOTE | 2019-11-15 12:23 | CT_ITS ---
STUDY: CT ABDOMEN AND PELVIS WITH CONTRAST REASON FOR EXAM: Male, 64 years old. MONITORING COLON CA, REMOVAL ONLY, RT HEMICOLECTOMY MAY 03 2019, APPY RADIATION DOSAGE (If Supplied By Facility): CTDIvol = ( 17.08 ) mGy, DLP = ( 1406.48 ) mGycm TECHNIQUE: Transaxial images were obtained from the dome of the diaphragm to the symphysis pubis with oral contrast. IV 100mL Isovue-370 AND ORAL was administered. Sagittal and coronal images were reconstructed. Individualized dose optimization techniques were used for this CT. COMPARISON: 05/11/2019 FINDINGS: The visualized lung bases are unremarkable. The visualized portions of the heart are within normal limits. There is decreased attenuation of the liver consistent with steatosis. Normal gallbladder and extrahepatic biliary system. Normal spleen. Normal pancreas. Stable 3.2 cm right adrenal adenoma, left adrenal gland is unremarkable. No obstructive uropathy, stable bilateral simple renal cysts. Normal visualized stomach. Normal small intestine. Retained stool noted throughout the colon. There is non-visualization of the appendix. Normal abdominal aorta. Normal inferior vena cava. Normal retroperitoneum. Normal urinary bladder. Small bilateral fat-containing inguinal hernias. Stable postsurgical changes noted in the ventral abdomen. There are diffuse degenerative changes of the visualized lumbar spine, and pelvis. CT/Abdomen/Pelvis WITH Contrast IMPRESSION: Diffuse fatty infiltration of the liver, no discrete lesion Stable 3 cm likely right adrenal adenoma No free peritoneal fluid, air, or suspicious adenopathy Retained stool in the colon Stable simple renal cysts No CT evidence of metastasis Electronically Signed: Atilio Maloney MD at 15:47 EDT , Service support ,
[2019-11-15 13:30] LABS: Absolute Lymphocyte Count 1.91 X10^3/uL (0.83-4.51); Absolute Neutrophil Count 3.2 X10^3/uL (2.0-7.7); Basophil# 0.04 X10^3/uL; Basophil% 0.7 % (0-1); Eosinophils% 1.8 % (0-5); Hematocrit 43.9 % (40-54); Hemoglobin 13.2 g/dL (13.0-16.5); Lymphocyte # 1.91 X10^3/ul (4.0); Lymphocyte % 33.9 % (19-41); Mean Corp Hgb Conc 30.1 g/dL (32-36); Mean Corpuscular Hgb 24.1 pg (27.0-32.0); Mean Corpuscular Volume 80.1 fL (80-94); Mean Platelet Vol. 10.3 fl (6.2-12.0); Monocyte% 7.1 % (0-10); NRBC Flagged by Analyzer 0 % (0-5); Neutrophil # 3.18 X10^3/uL (2.7-7.7); Neutrophil % 56.3 % (47-70); Platelet Count 327 K/mm3 (150-450); RBC Distribution Width CV 19.9 % (11.6-14.6); RBC Distribution Width SD 55.7 fl (35.1-43.9); Red Blood Count 5.48 M/mm3 (4.6-6.2); White Blood Count 5.6 K/mm3 (4.4-11.0)
[2019-11-15 14:09] LABS: AST(SGOT) 22 U/L (15-37); Alanine Aminotransfer ALT/SGPT 39 U/L (16-61); Albumin, Serum 3.8 g/dL (3.2-5.0); Alkaline Phosphatase 90 U/L (45-117); Anion Gap 12 (5-15); BUN 15 mg/dL (7-18); BUN/Creat Ratio 13.8 RATIO (10-20); Chloride 108 mmol/L (98-107); Creatinine, Serum 1.09 mg/dL (0.70-1.30); EST Glomerular Filtration Rate 72 mL/min (>60); Est Glom Filt Rate - Afr Amer 88 mL/min (>60); Glucose 119 mg/dL (74-106); LDH 173 U/L (87-241); Potassium 3.8 mmol/L (3.5-5.1); Protein, Total 7.8 g/dL (6.4-8.2); Sodium Level 141 mmol/L (136-145)
[2019-11-17 00:50] LABS: Carcinoembryonic Antigen 1.1 ng/mL (0.0-4.7)
== END ==
PROVIDERS: PCP Family Medicine; Referring Provider Internal Medicine Medical Oncology; Visit Provider Internal Medicine Medical Oncology
DX: C18.3 Malignant neoplasm of hepatic flexure (principal)
CPT/HCPCS: 36415; 74177; 80053; 82378; 83615; 85025; Q9967

== ENCOUNTER → 2020-12-12 14:20 | Outpatient (CLI) | payer MEDICARE, SELFPAY ==
[2019-11-22 13:59] VITALS: BMI 44.4
--- NOTE | 2020-12-12 14:23 | CT_ITS ---
STUDY: CT ABDOMEN AND PELVIS WITH CONTRAST REASON FOR EXAM: Male, 65 years old. SURVEILLANCE COLON CANCER RADIATION DOSAGE (If Supplied By Facility): CTDIvol = ( 19.44 ) mGy, DLP = ( 2328.96 ) mGycm TECHNIQUE: Transaxial images were obtained from the dome of the diaphragm to the symphysis pubis with oral contrast. Oral and amp; IV Readi-CAT and amp; 100mL Isovue-300 was administered. Sagittal and coronal images were reconstructed. Individualized dose optimization techniques were used for this CT. COMPARISON: Comparison is made with prior study dated 11/15/2019. FINDINGS: The visualized lung bases are unremarkable. The visualized portions of the heart are within normal limits. There is decreased attenuation of the liver consistent with steatosis. Borderline hepatomegaly. Normal gallbladder and extrahepatic biliary system. Normal spleen. Normal pancreas. There is a small, circumscribed, smooth, low attenuation right adrenal mass, consistent with an adrenal adenoma. This measures 2.8 cm. This is essentially unchanged. Normal left adrenal gland. Stable bilateral renal cysts. Normal visualized stomach. Normal small intestine. The patient is status post right hemicolectomy. Moderate amount of fecal material is seen in the colon. There is non-visualization of the appendix. Normal abdominal aorta. Normal inferior vena cava. Normal retroperitoneum. Normal urinary bladder. There is a small umbilical hernia containing fat. Small bilateral inguinal hernias containing fat. There are degenerative changes of the visualized lumbar spine. CT/Abdomen/Pelvis WITH Contrast IMPRESSION: Status post right hemicolectomy. Fatty infiltration of the liver. Bilateral renal cysts. There has been essentially no change since prior study. Electronically Signed: Isaac Finnegan MD at 15:47 EDT , Service support ,
== END ==
PROVIDERS: PCP Family Medicine; Referring Provider Internal Medicine Medical Oncology; Visit Provider Internal Medicine Medical Oncology
DX: Z12.11 Encounter for screening for malignant neoplasm of colon (principal); Z90.49 Acquired absence of other specified parts of digestive tract; K76.0 Fatty (change of) liver, not elsewhere classified; N28.1 Cyst of kidney, acquired
CPT/HCPCS: 74177; Q9967; A4216

== ENCOUNTER 2021-01-02 12:21 | Day surgery (SDC) | payer MEDICARE, SELFPAY ==
[2020-12-20 13:57] VITALS: BMI 46.3
[2021-01-02] VITALS (7 sets, daily range): BP systolic 100–131; BP diastolic 43–75; PULSE 58–74; RESP 16–17; TEMP 35.7–36.2; O2SAT 92–95; BMI 44.9
--- NOTE | 2021-01-02 12:27 | HP.PCM_ITS ---
History and Physical Date of Admission: 01/02/21 Intake Vital Signs 12/20/20 13:54 12/20/20 13:57 Height 5 ft 9.5 in Weight: 317 lb 7.45 oz BMI 46.2 46.3 BP 164/92 H Blood Pressure Location Rt brachial Position Sitting Respiration 18 Intake Visit Reasons: CSCOPE, HX COLON CANCER Chief Complaint: c-scope [place] Flat[place] Required: No Is patient in pain?: No Allergies No Known Allergies Allergy (Verified 12/20/20 13:55) Medications acetaminophen 500 mg tablet 500 mg PO Q4H PRN 03/14/19 [History Confirmed 12/20/20] amlodipine 10 mg tablet 10 mg PO QHS 03/14/19 [History Confirmed 12/20/20] cholecalciferol (vitamin D3) 50 mcg (2,000 unit) capsule 2,000 unit PO DAILY 03/14/19 [History Confirmed 12/20/20] clonazepam 2 mg tablet 2 mg PO QHS 03/14/19 [History Confirmed 12/20/20] duloxetine 60 mg capsule,delayed release 60 mg PO BID cap 03/14/19 [History Confirmed 12/20/20] ferrous sulfate 325 mg (65 mg iron) tablet 325 mg PO DAILY 03/14/19 [History Confirmed 12/20/20] latanoprost 0.005 % eye drops 1 drp OPHTHALMIC QPM 03/14/19 [History Confirmed 12/20/20] lisinopril 20 mg tablet 20 mg PO DAILY 03/14/19 [History Confirmed 12/20/20] metoprolol tartrate 50 mg tablet 50 mg PO BID 03/14/19 [History Confirmed 12/20/20] omega-3 fatty acids 1,000 mg capsule 1,000 mg PO DAILY 03/14/19 [History Confirmed 12/20/20] timolol 0.5 % eye drops 1 drp OPHTHALMIC DAILY 03/14/19 [History Confirmed 12/20/20] coenzyme Q10 200 mg PO DAILY 03/29/19 [History Confirmed 12/20/20] glucos sul [id number]-Mn 1 ea PO BID 03/29/19 [History Confirmed 12/20/20] aspirin 81 mg tablet,delayed release 81 mg PO DAILY 04/18/19 [History Confirmed 12/20/20] hydrochlorothiazide 25 mg tablet 50 mg PO DAILY 04/18/19 [History Confirmed 12/20/20] acetaminophen 650 mg PO Q6H PRN PRN tab 05/15/19 [Rx Confirmed 12/20/20] tamsulosin 0.4 mg PO DAILY #30 cap 05/16/19 [Rx Confirmed 12/20/20] paloma (Zingiber officinalis) 470 mg capsule 470 mg PO DAILY 12/16/20 [History Confirmed 12/20/20] multivitamin 1 tab PO DAILY 12/16/20 [History Confirmed 12/20/20] potassium chloride 10 mEq capsule,extended release 10 meq PO DAILY 12/16/20 [History Confirmed 12/20/20] rosuvastatin 10 mg tablet 10 mg PO DAILY 12/16/20 [History Confirmed 12/20/20] tacrolimus 0.1 % topical ointment 1 applic TOPICAL BID 12/16/20 [History Confirmed 12/20/20] turmeric root extract 500 mg capsule 500 mg PO DAILY 12/16/20 [History Confirmed 12/20/20] PFSH Medical History Anxiety Depression Eczema Glaucoma High cholesterol HTN (hypertension) Psoriatic arthritis Sleep apnea Surgical History History of colonoscopy History of hemicolectomy s/p cardiac ablation S/P hemorrhoidectomy S/P tonsillectomy Family History Brother CVA (cerebral vascular accident) Diabetes Social History Smoking Status: Never smoker alcohol intake: current HPI HPI HPI: AMBERLY PEÑA, is a 65 M who presents to the office today for colonoscopy. The patient had a hemicolectomy in April 2019 for colon cancer. The patient recently had CT scan which was normal. Patient denies any abdominal pain or blood in his stool. Patient has not had a colonoscopy since colectomy. ROS General General: Yes weight change, appetite, fatigue and colon cancer; No breast cancer or weakness HEENT HEENT: Yes eye injury and eye surgery; No difficulty swallowing, swollen glands or hoarseness Endo Endocrine: No thyroid disease, diabetes mellitus, thyroid cancer, Hair loss, heat intolerance or cold intolerance Skin Skin: Yes rash; No changing moles Breast Breast: No left breast lump, right breast lump, nipple discharge, breast pain, abnormal mammogram, abnormal US or breast enlargement Musc Musculoskeletal: Yes back problems and arthritis; No rheumatoid arthritis, gout or joint pain Cardio Cardiovascular: Yes high blood pressure; No murmur, pacemaker, heart disease, atrial fibrillation, heart attack, heart stent, palpitations, shortness of breat with exertion or chest pain Psych Psychiatric: Yes anxiety; No depression or hearing voices Resp Respiratory: Yes shortness of breath, Yes sleep apnea, No cough, No COPD, No asthma, No emphysema and No wheezing Gastro Gastrointestinal: No abdominal pain, No nausea or vomiting, No diarrhea, Yes constipation, No blood in stool, No acid reflux, Yes hemorrhoids, No ulcers, No gallbladder problem and No black,tarry stools Stan Hematologic: No blood thinners, No blood disorders, No bleeding, No anemia and No blood clots Neuro Neurologic: No system reviewed and no additional complaints, except as documented, No as per HPI, No abnormal gait, No abnormal hearing, No abnormal movements, No abnormal speech, No behavioral changes, No burning sensations, No confusion, No convulsions, No disequilibrium, No dizziness, No localized weakness, No frequent falls, No headache(s), No lack of coordination, No loss of vision, No memory loss, No numbness, No other visual disturbances, No radicular pain, No restless legs, No sensory deficit, No syncope, No tingling, No tremor(s), No weakness and No other Exam Const General: cooperative Orientation: alert and oriented x3 HENMT Head: normal to inspection Neck Neck: normal visual inspection and full ROM Chest Chest palpation & inspection: normal inspection of the chest Resp Effort & Inspection: normal respiratory effort Auscultation: clear to auscultation bilaterally Cardio Rate: regular rate Rhythm: regular rhythm GI Inspection: non-distended Palpation: soft and nontender Skin General: no rashes or lesions noted Neuro General: patient alert and patient oriented x3 Extrem General: full ROM Psych Appearance: grossly normal Mental Status: mental status grossly normal Assessment and Plan Assessment and Plan (1) Colon cancer: Status: Acute Qualifiers: Colon location: hepatic flexure Qualified Code(s): C18.3 - Malignant neoplasm of hepatic flexure Comment: Right sided colon cancer, Hepatic flexure stage IIA-pT3 pN0 M0. MSI-negative. Tumor invades muscularis propria into serosa, Lymph node 14 are negative. CEA is 1.2. on 12/11/2020. No evidence of disease clinically. Orders: Orders: Colonoscopy Today Plan - Dr. Domingo Russo MD: Patient had history of colon cancer which was fully resected. Patient has not had any issues since colectomy. I recommend surveillance colonoscopy. I have asked him to hold his aspirin and turmeric before the procedure. I explained endoscopy in detail to the patient. I explained the risks including but not limited to stroke or heart attack with anesthesia, perforation of the GI tract, bleeding, infection. I explained that any of these could necessitate further emergency surgery. The patient understands and all questions were answered sufficiently. The patient wishes to proceed with procedure. Domingo Russo MD Pager: [facility] [address] [place] [address], [address] [place] [address] Office: I have re-examined the patient. There are no clinical changes since date of exam.
[2021-01-02] MEDS: Lactated Ringers 1,000 ML 100 ML IV (13:17)
--- NOTE | 2021-01-06 09:50 | OP.CCLET_ITS ---
01/06/2021 John Villalta Re : Colonoscopy procedure for Garfield Lainez Dear Pawan This procedure was performed on December. My impressions and recommendations are as follows: Impressions : - The entire examined colon is normal on direct and retroflexion views. - No specimens collected. Recommendations : - Discharge patient to home. - Resume previous diet. - Continue present medications. - Repeat colonoscopy in 1 year for surveillance. My findings are described in the full procedure note, which is enclosed. If I can be of further assistance, please feel free to contact me at Doctor phone number(s): , Work: . Sincerely, Domingo Russo MD 01/02/2021 2:39:48 PM This report has been signed electronically.
--- NOTE | 2021-01-06 09:51 | OP.COLON_ITS ---
Patient Name: Garfield Lainez Procedure Date: 01/02/2021 2:17 PM Date of : 1955 Age: 65 Procedure: Colonoscopy Indications: High risk colon cancer surveillance: Personal history of colon cancer Providers: Domingo Russo MD Referring MD: John Villalta Medicines: Monitored Anesthesia Care Patient Profile: This is a 65 year old male. Refer to note in patient chart for documentation of history and physical. Last Colonoscopy: 1 year ago. Complications: No immediate complications. Procedure: Pre-Anesthesia Assessment: - Prior to the procedure, a History and Physical was performed, and patient medications and allergies were reviewed. The patient's tolerance of previous anesthesia was also reviewed. The risks and benefits of the procedure and the sedation options and risks were discussed with the patient. All questions were answered, and informed consent was obtained. Prior Anticoagulants: The patient has taken no previous anticoagulant or antiplatelet agents. After reviewing the risks and benefits, the patient was deemed in satisfactory condition to undergo the procedure. After I obtained informed consent, the scope was passed under direct vision. Throughout the procedure, the patient's blood pressure, pulse, and oxygen saturations were monitored continuously. The Colonoscope was introduced through the anus and advanced to the ileocolonic anastomosis. The colonoscopy was performed without difficulty. The patient tolerated the procedure well. The quality of the bowel preparation was good. Scope In: 2:25:46 PM Scope Withdrawal Time 0 hours 4 minutes 12 seconds Scope Out: 2:35:50 PM Total Procedure Duration Time 0 hours 10 minutes 4 seconds Findings: The entire examined colon appeared normal on direct and retroflexion views. Impression: - The entire examined colon is normal on direct and retroflexion views. - No specimens collected. Recommendation: - Discharge patient to home. - Resume previous diet. - Continue present medications. - Repeat colonoscopy in 1 year for surveillance. Procedure Code(s): --- Professional --- 22826, Colonoscopy, flexible; diagnostic, including collection of specimen(s) by brushing or washing, when performed (separate procedure) Diagnosis Code(s): --- Professional --- Z85.038, Personal history of other malignant neoplasm of large intestine CPT copyright 2017 [employer]. All rights reserved. The codes documented in this report are preliminary and upon bilingual kindergarten teacher review may be revised to meet current compliance requirements. Domingo Russo MD 01/02/2021 2:39:48 PM This report has been signed electronically. Number of Addenda: 0 Note Initiated On: 01/02/2021 2:17 PM
== END 2021-01-02 15:37 ==
LOC: EN 12:23 → AC 12:24
PROVIDERS: PCP Family Medicine; Referring Provider Family Medicine; Visit Provider Surgery
PROC: 0DJD8ZZ Inspection of Lower Intestinal Tract, Via Natural or Artificial Opening Endoscopic (ICD-10-PCS; CPT 45378; principal; 2021-01-02 13:55)
DX: Z12.11 Encounter for screening for malignant neoplasm of colon (principal); Z85.038 Personal history of other malignant neoplasm of large intestine; Z79.82 Long term (current) use of aspirin; Z90.49 Acquired absence of other specified parts of digestive tract; I10 Essential (primary) hypertension; E78.00 Pure hypercholesterolemia, unspecified
CPT/HCPCS: 45378; J7120

== ENCOUNTER → 2021-12-11 | Outpatient (CLI) | payer MEDICARE, SELFPAY ==
--- NOTE | 2021-12-11 13:25 | CT_ITS ---
STUDY: CT ABDOMEN AND PELVIS WITH CONTRAST REASON FOR EXAM: Male, 66 years old. MONITORING COLON CA. History of prior right hemicolectomy. RADIATION DOSAGE (If Supplied By Facility): CTDIvol = ( 18.74 ) mGy, DLP = ( 1317.48 ) mGycm TECHNIQUE: Transaxial images were obtained from the dome of the diaphragm to the symphysis pubis with oral contrast. Oral and amp;amp; IV Readi-CAT and amp;amp; 100mL Isovue-300 was administered. Sagittal and coronal images were reconstructed. Individualized dose optimization techniques were used for this CT. COMPARISON: Comparison is made with prior examination dated 12/12/2020. FINDINGS: Minimal increased markings at the left lung base suggestive of atelectasis. Coronary artery calcification. There is decreased attenuation of the liver consistent with steatosis. Normal gallbladder and extrahepatic biliary system. Normal spleen. Normal pancreas. Stable 3.6 cm low density nodule in the right adrenal gland. This most likely represents an adrenal adenoma. Stable bilateral renal cysts. Normal visualized stomach. Normal small intestine. The patient is status post right hemicolectomy. Moderate amount of fecal material is seen in the distal colon. There is non-visualization of the appendix. There is scattered atherosclerotic calcification of the abdominal aorta, without a demonstrated aneurysm. Normal inferior vena cava. Normal retroperitoneum. Normal urinary bladder. There is a small umbilical hernia containing fat. There are degenerative changes of the visualized lumbar spine. CT/Abdomen/Pelvis WITH Contrast IMPRESSION: Stable examination. Stable right adrenal low-density mass. Fatty infiltration of the liver. Status post right hemicolectomy. Electronically Signed: Isaac Finnegan MD at 14:07 EDT ,
[2021-12-11 14:01] LABS: CREATININE FINGERSTICK < 0.9 mg/dL (0.70-1.30); EGFR FINGERSTICK > 60.0000 mL/min (>60)
== END | disposition home or self-care (01) ==
LOC: CT 13:24
PROVIDERS: PCP Family Medicine; Referring Provider Internal Medicine Medical Oncology; Visit Provider Internal Medicine Medical Oncology
DX: Z01.812 Encounter for preprocedural laboratory examination (principal); C18.4 Malignant neoplasm of transverse colon
CPT/HCPCS: 36415; 74177; 80053; 82378; 83615; 85025; Q9967

== ENCOUNTER 2022-12-04 08:11 | Day surgery (SDC) | payer MEDICARE, SELFPAY ==
[2022-12-04] VITALS (7 sets, daily range): BP systolic 105–135; BP diastolic 57–74; PULSE 57–75; RESP 16–18; TEMP 36–36.3; O2SAT 96–98; BMI 47.5
[2022-12-04] MEDS: Lactated Ringers 1,000 ML 15 ML IV (08:42)
--- NOTE | 2022-12-04 09:41 | HP.PCM_ITS ---
HPI - General HPI Narrative AMBERLY PEÑA, is a 67 M who presents for surveillance colonoscopy. His last colonoscopy was 2 years ago. He had a colon mass removed in 2019. He denies any abdominal pain or blood in his stool. [facility] Medical History (Updated 12/01/22 @ 16:25 by Allie Wilkinson) Alcohol use Ambulates with cane Anxiety Arthritis Cancer Cardiology follow-up encounter CPAP (continuous positive airway pressure) dependence Degenerative joint disease Depression Eczema Generalized anxiety disorder Glaucoma High cholesterol History of echocardiogram History of edema History of irregular heartbeat History of retinal vein occlusion History of scarlet fever History of stress test HTN (hypertension) Non-smoker Psoriasis Psoriatic arthritis REM sleep behavior disorder Shortness of breath on exertion Sleep apnea Vertigo Wears glasses Home Medications amlodipine 10 mg tablet (Norvasc) 10 mg PO QHS 03/14/19 [History Last Taken 05/02/19 06:00] clonazepam 2 mg tablet (Klonopin) 2 mg PO QHS 03/14/19 [History Last Taken Unkno wn] duloxetine 60 mg capsule,delayed release (Cymbalta) 60 mg PO BID 03/14/19 [History Last Taken Unknown] latanoprost 0.005 % eye drops 1 drp ophthalmic (eye) QPM 03/14/19 [History Last Taken Unknown] lisinopril 20 mg tablet (Zestril) 20 mg PO QHS 03/14/19 [History Last Taken 12/04/22 07:00] metoprolol tartrate 50 mg tablet (Lopressor) 50 mg PO BID 03/14/19 [History Last Taken 12/04/22 07:00] omega-3 fatty acids 1,000 mg capsule 1,000 mg PO DAILY 03/14/19 [History Last Taken Unknown] timolol 0.5 % eye drops 1 drp ophthalmic (eye) DAILY 03/14/19 [History Last Taken Unknown] coenzyme Q10 200 mg capsule 200 mg PO DAILY 03/29/19 [History Last Taken Unknown] hydrochlorothiazide 25 mg tablet 50 mg PO DAILY 04/18/19 [History Last Taken Unknown] acetaminophen 325 mg tablet 650 mg (2 x 325 mg) PO Q6H PRN PRN Pain 1-03/02 or Fever 05/15/19 [Rx Last Taken Unknown] multivitamin 1 tab PO DAILY 12/16/20 [History Last Taken Unknown] potassium chloride 10 mEq capsule,extended release 10 meq PO DAILY 12/16/20 [History Last Taken 01/02/21 10:00] rosuvastatin 10 mg tablet 20 mg PO DAILY 12/16/20 [History Last Taken Unknown] tacrolimus 0.1 % topical ointment (Protopic) 1 applic topical BID PRN PRN ps oriasis 12/16/20 [History Last Taken Unknown] cholecalciferol (vitamin D3) 125 mcg (5,000 unit) tablet (Vitamin D3) 10,000 unit PO DAILY 12/31/20 [History Last Taken Unknown] ferrous sulfate 325 mg (65 mg iron) tablet (Feosol) 325 mg PO .Twice a week 10/22/22 [History Last Taken Unknown] Allergy/AdvReac Type Severity Reaction Status Date / Time neomycin Allergy Itching Verified 12/04/22 08:38 Family History (Updated 10/22/22 @ 11:10 by Lucia Carcamo) Brother CVA (cerebral vascular accident) Diabetes Aunt Colon cancer Surgical History (Updated 12/01/22 @ 16:25 by Allie Wilkinson) H/O cardiac radiofrequency ablation History of colonoscopy History of hemicolectomy s/p cardiac ablation S/P hemorrhoidectomy S/P tonsillectomy Social History Smoking Status: Never smoker alcohol intake: current Past Medical/Surgical History Planned Operation Planned Operative Procedure/s: CSCOPE S.O.S: No Previous Hospitalizations/Surgeries HX Hospitalizations: No HX of Surgeries: T&A 1960, appendectomy, eye ablation Right Hemicolectomy Any Problems With Anesthesia: No You/Your Family Experience Fever (Hyperthermia) With Anes: No Cholinesterase deficiency: No Cardiovascular Hx Chest Pain within Last 2 months: No Hx of Irregular Heartbeat and/or Afib: No Hx Heart Attack: No Hx Congestive Heart Failure: No Hx Rheumatic Fever: Yes (scarlet fever as a child) Hx Hypertension: Yes (ON MED) Hx Internal Defibrillator: No Hx Pacemaker: No Hx Cardiac Catheterization: Yes (ablation 1999) What facility was last heart cath performed: unkown Date of last Heart Cath: unkown Hx Cardiac Surgery/Stents/Etc.: No Hx Stress Test: Yes (1-2 weeks ago (negative)) Hx Pain in Legs when Walking/Leg Cramps: No Respiratory Chronic Cough: No HX of Shortness of Breath: No Hoarseness: No Hx Chronic Obstructive Pulmonary Disease (COPD): No Hx Asthma: No Hx Emphysema: No Hx Sleep Apnea: Yes CPAP: Yes BIPAP: No Hx Respiratory Tract Infection/Cold (presently): No Result (for STOP score): Positive Hx Smoking: No Smoking Status: Never smoker Gastrointestinal Hx Gastroesophageal Reflux: Yes Controlled With Meds: Yes Hx Gastrointestinal Disorders: No Hx Gastrointestinal Bleed: No Hx Ulcer: No Hx Hiatal Hernia: No Difficulty Chewing/Swallowing: No Special diet followed at home: No Hx Unplanned Weight Loss of 20#: No HX Unplanned Weight Gain of 20#: No Neurological Hx Seizures: No HX Syncope/Blackout Spells/Unconsciousness: No Hx Transient Ischemic Attacks (TIA): No Hx Multiple Sclerosis: No Hx Parkinson's Disease: No Hx Head/Neck Injury: No Hx Headaches: No Hx Back Injury/Pain: Yes (chronic lower back pain) Recent Onset of Speech Difficulty: No Restless Legs: No Does patient have nerve stimulator: No Blood Disorder Hx Leukemia: No Bleeding Tendencies: No Hx Deep Vein Thrombosis: No Hx High Cholesterol: Yes Blood Transmitted Disease: No Hx Hepatitis: No Hx Cirrhosis: No Hx Anemia: No Hx Blood Disorders: No Genitourinary Hx Renal Disease: No Hx Dialysis: No Musculoskeletal Hx Arthritis: Yes Hx Rheumatoid Arthritis: No Hx Gout: No Recent Onset of an Orthopedic Problem: Yes (SACROILIAC JOINT) Endocrine Hx Diabetes: No Insulin: No Thyroid Disease: No Hx Steroid Therapy: No Psycho/Social Hx Substance Use: No Hx Alcohol Use: Yes (3 beers twice a week) Hx Anxiety: Yes Hx Depression: Yes Mental Illness: No Hx Dementia: No Miscellaneous Hx Cancer: No Recent Exposure to Contagious Disease: No Hx of C-Diff: No Any Loose Teeth: No Allergies neomycin Allergy (Verified 12/04/22 08:38) Itching EAR DROPS Discharge Is Pt Admitted From a Intermediate, or a Longterm: No After D/C, Where Do you Plan to Go: Return Home From the [facility] History Number of Risk Factors: 4 Vital Signs Vital Signs Vital Signs: 12/04/22 08:39 12/04/22 08:39 Temperature 96.8 F L Temperature Source Temporal Pulse Rate 69 Respiratory Rate 18 Respiratory Pattern Normal Blood Pressure 135/68 H Blood Pressure Mean 90 Blood Pressure Source Monitor Blood Pressure Position Sitting Blood Pressure Location Right Arm Pulse Ox 98 Oxygen Delivery Method Room Air Weight Weight: 321 lb 13.998 oz Body Mass Index (BMI) 47.5 Physical Exam Const alert and oriented x3 HEENT normocephalic Eyes PERRL Resp normal respiratory effort and normal air movement Cardio regular rate and regular rhythm GI soft to palpation, non-tender and non-distended Extremity normal to inspection Assessment & Plan Assessment/Plan (1) Colon cancer: QUALIFIERS: Colon location: hepatic flexure Qualified Code(s): C18.3 - Malignant neoplasm of hepatic flexure PLAN: I explained endoscopy in detail to the patient. I explained the risks including but not limited to stroke or heart attack with anesthesia, perforation of the GI tract, bleeding, infection. I explained that any of these could necessitate further emergency surgery. The patient understands and all questions were answered sufficiently. The patient wishes to proceed with procedure. Domingo Russo MD Pager: [facility] [address] [place] [address] [address] [place] [address] Office: Surgery Risks - Colonoscopy Risks Include but are not Limited To: Risks include but are not limited to: Bleeding, perforation requiring further surgery, inability to complete colonoscopy requiring barium enema.
--- NOTE | 2022-12-04 10:33 | OP.COLON_ITS ---
Patient Name: Garfield Lainez Procedure Date: 12/04/2022 10:10 AM Date of : 1955 Age: 67 Procedure: Colonoscopy Indications: High risk colon cancer surveillance: Personal history of colon cancer Providers: Domingo Russo MD Referring MD: Domingo Russo MD Medicines: Monitored Anesthesia Care Patient Profile: This is a 67 year old male. Refer to note in patient chart for documentation of history and physical. Last Colonoscopy: within the past 3 years. Complications: No immediate complications. Procedure: Pre-Anesthesia Assessment: - Prior to the procedure, a History and Physical was performed, and patient medications and allergies were reviewed. The patient's tolerance of previous anesthesia was also reviewed. The risks and benefits of the procedure and the sedation options and risks were discussed with the patient. All questions were answered, and informed consent was obtained. Prior Anticoagulants: The patient has taken no previous anticoagulant or antiplatelet agents. After reviewing the risks and benefits, the patient was deemed in satisfactory condition to undergo the procedure. After I obtained informed consent, the scope was passed under direct vision. Throughout the procedure, the patient's blood pressure, pulse, and oxygen saturations were monitored continuously. The Colonoscope was introduced through the anus and advanced to the cecum, identified by appendiceal orifice and ileocecal valve. The colonoscopy was performed without difficulty. The patient tolerated the procedure well. The quality of the bowel preparation was good. Scope In: 10:19:29 AM Scope Withdrawal Time 0 hours 5 minutes 18 seconds Scope Out: 10:28:28 AM Total Procedure Duration Time 0 hours 8 minutes 59 seconds Findings: The entire examined colon appeared normal on direct and retroflexion views. Impression: - The entire examined colon is normal on direct and retroflexion views. - No specimens collected. Recommendation: - Discharge patient to home. - Resume previous diet. - Continue present medications. - Repeat colonoscopy in 3 years for surveillance. Procedure Code(s): --- Professional --- 55964, Colonoscopy, flexible; diagnostic, including collection of specimen(s) by brushing or washing, when performed (separate procedure) Diagnosis Code(s): --- Professional --- Z85.038, Personal history of other malignant neoplasm of large intestine CPT copyright 2017 [employer]. All rights reserved. The codes documented in this report are preliminary and upon physician coder review may be revised to meet current compliance requirements. Domingo Russo MD 12/04/2022 10:32:56 AM This report has been signed electronically. Number of Addenda: 0 Note Initiated On: 12/04/2022 10:10 AM
--- NOTE | 2022-12-04 10:34 | OP.CCLET_ITS ---
12/04/2022 John Villalta Re : Colonoscopy procedure for Garfield Lainez Dear Pawan This procedure was performed on Sunday, December 04, 2022. My impressions and recommendations are as follows: Impressions : - The entire examined colon is normal on direct and retroflexion views. - No specimens collected. Recommendations : - Discharge patient to home. - Resume previous diet. - Continue present medications. - Repeat colonoscopy in 3 years for surveillance. My findings are described in the full procedure note, which is enclosed. If I can be of further assistance, please feel free to contact me at Doctor phone number(s): , Work: . Sincerely, Domingo Russo MD 12/04/2022 10:32:56 AM This report has been signed electronically.
== END 2022-12-04 11:20 | disposition home or self-care (01) ==
LOC: EN 08:17 → AC 08:18
PROVIDERS: PCP Family Medicine; Referring Provider Surgery; Visit Provider Surgery
PROC: 0DJD8ZZ Inspection of Lower Intestinal Tract, Via Natural or Artificial Opening Endoscopic (ICD-10-PCS; CPT 45378; principal; 2022-12-04 09:25)
DX: Z12.11 Encounter for screening for malignant neoplasm of colon (principal); E78.00 Pure hypercholesterolemia, unspecified; Z80.0 Family history of malignant neoplasm of digestive organs; F41.1 Generalized anxiety disorder; I10 Essential (primary) hypertension; Z85.038 Personal history of other malignant neoplasm of large intestine
CPT/HCPCS: 45378; J7120; J2405

== ENCOUNTER → 2022-12-10 | Outpatient (CLI) | payer MEDICARE, SELFPAY ==
--- NOTE | 2022-12-10 12:48 | CT_ITS ---
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 This CT exam was performed using one or more of the following dose reduction techniques: automated exposure control, adjustment of the mA and/or kV according to patient size, and/or use of iterative reconstruction technique. CONTRAST: IV 100mL Isovue-300 RADIATION DOSE: CTDIvol = 16.72 mGy, DLP = 1188.42 mGy-cm COMPARISON: December 11, 2021. There was right hemicolectomy at that time bilateral renal cysts and right adrenal nodule. FINDINGS: LOWER THORAX: Mild apparent scarring in the posterior left lung base. The heart is not fully included. No significant pericardial effusion. ABDOMEN: LIVER: Unremarkable. Homogeneous. No focal mass. GALLBLADDER AND BILE DUCTS: Contracted gallbladder, no obvious stones or inflammation. No gallbladder distention or wall edema. No intra- or extrahepatic biliary ductal dilation. PANCREAS: Unremarkable. No focal cystic or solid mass. SPLEEN: Unremarkable. Normal size without focal cystic or solid mass. ADRENALS: Stable predominantly hypodense right adrenal nodule, similar size and configuration, roughly 3.7 cm x 3.4 cm on axial images, it was 4 cm x 2.9 cm. KIDNEYS AND URETERS: Multiple and bilateral simple-appearing renal cysts without significant change or complex mass. Normal renal size and position. No hydronephrosis. STOMACH AND BOWEL: Unremarkable. No stomach or bowel distention. No oral or rectal contrast is present. There is mild fluid and gas in the stomach, mildly prominent fluid in some of the small bowel. Right hemicolectomy with small bowel to proximal transverse colon anastomosis. Moderate stool throughout most of the residual colon, mild gas and stool in the distal sigmoid and rectum. PELVIS: APPENDIX: Appendix is not present. BLADDER: Unremarkable. REPRODUCTIVE: Unremarkable as visualized. No mass. ABDOMEN and PELVIS: INTRAPERITONEAL SPACE: Unremarkable. No ascites or other fluid collection. No free air. BONES/JOINTS: Unremarkable. No suspicious lytic or blastic abnormality. SOFT TISSUES: Mild fat in the proximal inguinal rings. No discrete abdominal or pelvic wall hernia. VASCULATURE: Unremarkable. Abdominal aorta is non-dilated. LYMPH NODES: Unremarkable. No enlarged lymph nodes. CT/Abdomen/Pelvis W IV Cont ONLY IMPRESSION: Moderate stool in much of the residual colon. Otherwise similar exam. Right hemicolectomy. Stable right adrenal presumed benign adenoma and renal cysts. Electronically Signed: Claire Pickard MD at 8:37 EDT ,
--- NOTE | 2022-12-10 12:50 | RAD_ITS ---
STUDY: XR Chest 2 Views 12/10/2022 12:53 PM REASON FOR EXAM: Male, 67 years old. CHEST PAIN MONITOR COLON CA COMPARISON: 06/06/19 TECHNIQUE: XR Chest 2 Views FINDINGS: There is no demonstrated pleural abnormality. Normal heart size. Normal mediastinum. Normal bryson. Prominent appearing increased interstitial lung markings. Normal visualized pulmonary arteries. There is atherosclerotic calcification of the aortic arch with tortuosity. There are diffuse degenerative changes of the visualized thoracic spine. There is degenerative osteoarthritis of the bilateral shoulders. There is no demonstrated abnormality of the visualized soft tissue structures of the upper abdomen. RAD/Chest PA and Lateral IMPRESSION: There are no acute findings. Electronically Signed: Maxwell Levin MD at 20:48 EDT ,
[2022-12-10 13:14] LABS: CREATININE FINGERSTICK 1.3 mg/dL (0.70-1.30)
[2022-12-10 13:15] LABS: Absolute Lymphocyte Count 1.94 X10^3/uL (0.83-4.51); Absolute Neutrophil Count 3.8 X10^3/uL (2.0-7.7); Basophil# 0.07 X10^3/uL; Basophil% 1.1 % (0-1); Eosinophil# 0.22 X10^3/uL; Eosinophils% 3.3 % (0-5); Hematocrit 48.3 % (40-54); Hemoglobin 16.5 g/dL (13.0-16.5); Lymphocyte # 1.94 X10^3/ul (0.83-4.51); Lymphocyte % 29.3 % (19-41); Mean Corp Hgb Conc 34.2 g/dL (32-36); Mean Corpuscular Hgb 31.5 pg (27.0-32.0); Mean Corpuscular Volume 92.2 fL (80-94); Monocyte# 0.56 X10^3/uL; Monocyte% 8.5 % (0-10); NRBC Flagged by Analyzer 0 % (0-5); Neutrophil # 3.81 X10^3/uL (2.7-7.7); Neutrophil % 57.6 % (47-70); Platelet Count 279 K/mm3 (150-450); RBC Distribution Width CV 13.2 % (11.6-14.6); RBC Distribution Width SD 44.7 fl (35.1-43.9); Red Blood Count 5.24 M/mm3 (4.6-6.2); White Blood Count 6.6 K/mm3 (4.4-11.0)
[2022-12-10 13:47] LABS: ALB/GLOB Ratio 0.8 RATIO (0.9-2.4); AST(SGOT) 30 U/L (15-37); Alanine Aminotransfer ALT/SGPT 42 U/L (16-61); Albumin, Serum 3.3 g/dL (3.2-5.0); Alkaline Phosphatase 77 U/L (45-117); Anion Gap 8 (5-15); BUN 21 mg/dL (7-18); BUN/Creat Ratio 16.3 RATIO (10-20); Calcium,Total 9.3 mg/dL (8.5-10.1); Chloride 105 mmol/L (98-107); Creatinine, Serum 1.29 mg/dL (0.70-1.30); EST Glomerular Filtration Rate 59 mL/min (>60); Est Glom Filt Rate - Afr Amer 71 mL/min (>60); Glucose 119 mg/dL (74-106); LDH 190 U/L (87-241); Potassium 3.7 mmol/L (3.5-5.1); Protein, Total 7.3 g/dL (6.4-8.2); Sodium Level 139 mmol/L (136-145)
[2022-12-12 04:07] LABS: Carcinoembryonic Antigen 1.6 ng/mL (0.0-4.7)
== END | disposition home or self-care (01) ==
LOC: CT 12:13
PROVIDERS: PCP Family Medicine; Referring Provider Internal Medicine Medical Oncology; Visit Provider Internal Medicine Medical Oncology
DX: C18.3 Malignant neoplasm of hepatic flexure (principal)
CPT/HCPCS: 36415; 71046; 74177; 80053; 82378; 83615; 85025; Q9967